=== PATIENT | female | born 1975 | race African-American/Black ===

== ENCOUNTER 2018-10-11 17:35 | Emergency (ER) | payer SELFPAY ==
--- NOTE | 2018-10-11 20:28 | ER Document Report ---
ED Medical Screen (RME) - General Chief Complaint: Blood Pressure Problem Stated Complaint: BLOOD PRESSURE CHECK Time Seen by Provider: 10/11/18 19:39 Mode of Arrival: Ambulatory Information source: Patient Notes: 3-year-old female presented to ED for complaint of elevated blood pressure with dizziness and headache. She states that she quit taking her blood pressure medicines because they made her blood pressure too low it went down to 119 over something she is not sure what but it made her lethargic so she has not taken them in a while. She is a patient at the [facility]. Her medicines are Lasartan and Chlorthalidone and/or in her purse. She will not take the medications. She states she needs an exam and testing done to make sure that it is really just because she needs to take her blood pressure medicine. She states she has been under stress and she knows this is more than just she needs to take her blood pressure medicine. Her blood pressure manually is 182/102 when I examined her. Negative assessment otherwise. She is insisting that she needs a real doctor not a nurse practitioner. I went and spoke with Dr. Islas and he went and examined the patient. She was not happy with him and states she needed a different real doctor. I have greeted and performed a rapid initial assessment of this patient. A comprehensive ED assessment and evaluation of the patient, analysis of test results and completion of medical decision making process will be conducted by an additional ED providers. TRAVEL OUTSIDE OF THE [place] IN LAST 30 DAYS: No - Related Data Allergies/Adverse Reactions: No Known Allergies Allergy (Unverified 10/11/18 17:41) Past Medical History - Past Medical History Cardiac Medical History: Reports: Hx Hypertension Renal/ Medical History: Denies: Hx Peritoneal Dialysis Past Surgical History: Reports: Hx Hysterectomy - Immunizations Hx Diphtheria, Pertussis, Tetanus Vaccination: No Physical Exam - Vital signs Vitals: Temp Pulse Resp BP Pulse Ox 98.8 F 100 14 167/104 H 99 10/11/18 17:57 10/11/18 17:57 10/11/18 17:57 10/11/18 17:57 10/11/18 17:57 Course - Vital Signs Vital signs: Temp Pulse Resp BP Pulse Ox 98.8 F 100 14 167/104 H 99 10/11/18 17:57 10/11/18 17:57 10/11/18 17:57 10/11/18 17:57 10/11/18 17:57 Doctor's Discharge - Discharge Referrals: LUCAS MERCHANT, [facility] [Primary Care Provider] - Follow up as needed
--- NOTE | 2018-10-11 20:51 | ER Document Report ---
Doctor's Note Notes: 10/11/18 20:49 I was asked to evaluate this patient in conjunction with nurse practitioner. Upon sitting down with the patient she deviated her days refused to look at me while speaking to her. I asked how I could help her today what brought her to the emergency room. She noted issues with her blood pressure and said she felt like she might not get up because her blood pressure had been made to low. Spoke to her about her desires including what she thought was wrong, what lab tests she would like around, what her concerns were and she noted she wanted a second opinion. I asked if I could help her and she noted that unless he is an individual, come up with my own second opinion I was of no use to her. She told me she did not wish to speak to me any longer. At this point I did offer this patient further evaluation including testing, blood work, medications all of which she declined stating she did not want my opinion.
--- NOTE | 2018-10-11 21:15 | ER Document Report ---
ED Blood Pressure Problem - General Chief Complaint: Blood Pressure Problem Stated Complaint: BLOOD PRESSURE CHECK Time Seen by Provider: 10/11/18 19:39 Mode of Arrival: Ambulatory Information source: Patient Notes: This is a 43-year-old female that presents to the emergency room with concerns about her blood pressure. Patient had a long history of blood pressure problems in the past and was on antihypertensives. She ultimately started adopting a vegan diet and her blood pressure normalized and she was taken off the medicines. She states she stopped the vegan diet this past spring and her blood pressure has gradually increased. She states that she was started on 2 medicines (losartan and chlorthalidone) 1 week ago and she feels increased weakness, generalized fatigue and "not good". Patient denies chest pain, abdominal pain. She denies shortness of breath. She does smoke half a pack per day. She does drink a lot of soda. TRAVEL OUTSIDE OF THE [place] IN LAST 30 DAYS: No - HPI Patient complains to provider of: High blood pressure Onset: Just prior to arrival Onset/Duration: Gradual Quality of pain: No pain Severity: None Pain Level: Denies Associated symptoms: denies: Chest pain, Lightheaded, Nausea, Visual changes Similar symptoms previously: Yes Recently seen / treated by doctor: Yes - Related Data Allergies/Adverse Reactions: No Known Allergies Allergy (Unverified 10/11/18 17:41) Past Medical History - General Information source: Patient - Social History Smoking Status: Current Every Day Smoker Cigarette use (# per day): Yes Chew tobacco use (# tins/day): No Frequency of alcohol use: None Drug Abuse: None Lives with: Family Family History: None Patient has suicidal ideation: No Patient has homicidal ideation: No - Past Medical History Cardiac Medical History: Reports: Hx Hypertension Renal/ Medical History: Denies: Hx Peritoneal Dialysis Past Surgical History: Reports: Hx Hysterectomy - Immunizations Hx Diphtheria, Pertussis, Tetanus Vaccination: No Review of Systems - Review of Systems Constitutional: denies: Chills, Fever EENT: No symptoms reported Cardiovascular: denies: Chest pain, Palpitations, Heart racing Respiratory: No symptoms reported Gastrointestinal: No symptoms reported Genitourinary: No symptoms reported Female Genitourinary: No symptoms reported Musculoskeletal: No symptoms reported Skin: No symptoms reported Hematologic/Lymphatic: No symptoms reported Neurological/Psychological: See HPI Physical Exam - Vital signs Vitals: Temp Pulse Resp BP Pulse Ox 98.8 F 100 14 167/104 H 99 10/11/18 17:57 10/11/18 17:57 10/11/18 17:57 10/11/18 17:57 10/11/18 17:57 Notes: Physical exam: GENERAL: Patient is alert and oriented x3, no acute distress. Her blood pressure is 167/104. HEAD: Atraumatic, normocephalic. EYES: Pupils equal round and reactive to light, extraocular movements intact, sclera anicteric, conjunctiva are normal. ENT: TMs normal, nares patent, oropharynx clear without exudates. Moist mucous membranes. NECK: Normal range of motion, supple without obvious mass or JVD. LUNGS: Breath sounds clear to auscultation bilaterally and equal. No wheezes rales or rhonchi. HEART: Regular rate and rhythm without murmurs, rubs or gallops. ABDOMEN: Soft, normoactive bowel sounds. No tenderness to palpation. No guarding, no rebound. No masses appreciated. EXTREMITIES: Normal range of motion, no pitting or edema. No clubbing or cyanosis. NEUROLOGICAL: Cranial nerves II through XII grossly intact. Normal speech, moving all extremities. PSYCH: Normal mood, normal affect. SKIN: Warm, Dry, normal turgor, no rashes or lesions noted. Course - Vital Signs Vital signs: Temp Pulse Resp BP Pulse Ox 97.9 F 97 17 179/81 H 99 10/11/18 21:35 10/11/18 21:35 10/11/18 21:35 10/11/18 21:35 10/11/18 21:35 Discharge - Discharge Clinical Impression: Hypertension Condition: Stable Disposition: HOME, SELF-CARE Additional Instructions: As we discussed, I would like you to take the losartan daily for your blood pressure. Hold off on the chlorthalidone now. I do want to get a repeat blood pressure check in the next 3-5 days with your primary care doctor. Ultimately you may need to add the second blood pressure medicine, but to start both at the same time may be to much for your system at this time (given that she is been off these medicines for a little while). I would try to avoid red meats and hand (meats with a lot of salt). Avoid salt and cut down on the smoking if you can. Return to the emergency room for chest pain, abdominal pain or any concerns or getting worse. Forms: Elevated Blood Pressure Referrals: LUCAS MERCHANT, JOHNATHON [NURSE PRACTITIONER] - Follow up as needed
[2018-10-11 21:36] VITALS: BP 179/81
== END 2018-10-11 21:33 | disposition home or self-care (01) ==
LOC: ER 17:35
DX: I10 Essential (primary) hypertension (principal); R42 Dizziness and giddiness; F17.210 Nicotine dependence, cigarettes, uncomplicated; Z90.710 Acquired absence of both cervix and uterus
CPT/HCPCS: 99283

== ENCOUNTER 2018-10-13 19:23 | Emergency (ER) | payer MEDICAID ==
[2018-10-13 19:40] VITALS: BP 127/95
== END 2018-10-13 20:00 | disposition left against medical advice (07) ==
LOC: ER 19:23
DX: Z53.21 Procedure and treatment not carried out due to patient leaving prior to being seen by health care provider (principal); F41.9 Anxiety disorder, unspecified

== ENCOUNTER 2018-10-14 12:12 | Emergency (ER) | payer MEDICAID, OTHER ==
--- NOTE | 2018-10-14 13:24 | EKG REPORT ---
SEVERITY:- ABNORMAL ECG - SINUS RHYTHM CONSIDER ANTERIOR INFARCT BORDERLINE T ABNORMALITIES, INFERIOR LEADS BORDERLINE PROLONGED QT INTERVAL : Confirmed by: Nigel Garcia MD 14-Oct-2018 13:23:39
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
[2018-10-14] MEDS ORDERED: LORAZEPAM INJ 2 MG/1 ML VIAL ONE (15:08)
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
[2018-10-14 16:27] LABS: ABSOLUTE EOSINOPHILS # (AUTO) 0.1 10^3/uL (0.0-0.6); ABSOLUTE LYMPHOCYTES (AUTO) 2.9 10^3/uL (0.5-4.7); ABSOLUTE MONOCYTES (AUTO) 0.4 10^3/uL (0.1-1.4); ABSOLUTE NEUT (AUTO) 2.6 10^3/uL (1.7-8.2); BASOPHILS % (AUTO) 0.8 % (0-2); EOSINOPHILS % (AUTO) 1.7 % (0-6); HEMATOCRIT 39.6 % (36.0-47.0); HEMOGLOBIN 13.4 g/dL (12.0-15.5); LYMPHOCYTES % (AUTO) 48.2 % (13-45); MEAN CORPUSCULAR HEMOGLOBIN 28.4 pg (27.0-33.4); MEAN CORPUSCULAR HGB CONC 33.9 g/dL (32.0-36.0); MEAN CORPUSCULAR VOLUME 84 fl (80-97); MONOCYTES % (AUTO) 6.2 % (3-13); PLATELET COUNT 220 10^3/uL (150-450); RED BLOOD COUNT 4.72 10^6/uL (3.72-5.28); RED CELL DISTRIBUTION WIDTH 13.8 % (11.5-14.0); SEGMENTED NEUTROPHILS % (AUTO) 43.1 % (42-78); TOTAL CELLS COUNTED % (AUTO) 100 %; WHITE BLOOD COUNT 5.9 10^3/uL (4.0-10.5)
[2018-10-14] MEDS ORDERED: LORAZEPAM INJ 2 MG/1 ML VIAL IM ONE (16:29)
[2018-10-14 16:46] LABS: ALANINE AMINOTRANSFERASE 10 U/L (9-52); ALKALINE PHOSPHATASE 48 U/L (38-126); ANION GAP 10 (5-19); ASPARTATE AMINO TRANSFERASE 17 U/L (14-36); BILIRUBIN,DIRECT 0.3 mg/dL (0.0-0.4); BILIRUBIN,TOTAL 0.4 mg/dL (0.2-1.3); BLOOD UREA NITROGEN 11 mg/dL (7-20); CALCIUM 9.6 mg/dL (8.4-10.2); CARBON DIOXIDE 30 mmol/L (22-30); CHLORIDE 101 mmol/L (98-107); GLUCOSE 97 mg/dL (75-110); POTASSIUM 3.2 mmol/L (3.6-5.0); SODIUM 141.3 mmol/L (137-145); TOTAL PROTEIN 6.9 g/dL (6.3-8.2)
[2018-10-14 16:49] LABS: ACETAMINOPHEN < 10 ug/mL (10-30); ALCOHOL < 10 mg/dL (NONE DETECTED); SALICYLATE < 1.0 mg/dL (2.0-20.0)
[2018-10-14 20:26] LABS: APPEARANCE,URINE CLOUDY; BILIRUBIN,URINE NEGATIVE (NEGATIVE); COLOR,URINE YELLOW; GLUCOSE, URINE NEGATIVE (NEGATIVE); KETONES,URINE NEGATIVE (NEGATIVE); LEUKOCYTE ESTERASE,URINE NEGATIVE (NEGATIVE); NITRITE,URINE NEGATIVE (NEGATIVE); PROTEIN,URINE NEGATIVE (NEGATIVE); URINE SPECIFIC GRAVITY 1.019
[2018-10-14 20:27] LABS: URINE AMPHETAMINES SCREEN NEGATIVE; URINE BARBITURATES SCREEN NEGATIVE; URINE BENZODIAZEPINES SCREEN NEGATIVE; URINE COCAINE SCREEN NEGATIVE; URINE MARIJUANA (THC) SCREEN UNCONFIRMED POSITIVE; URINE METHADONE SCREEN NEGATIVE; URINE PHENCYCLIDINE SCREEN NEGATIVE
[2018-10-15] MEDS ORDERED: LORAZEPAM INJ 2 MG/1 ML VIAL IM ONE (00:11)
[2018-10-15] MEDS: BUSPIRONE HCL 10 MG TABLET PO SCH ×2 (13:48→17:59)
[2018-10-15] MEDS: VENLAFAXINE HCL 37.5 MG CAP.SR.24H PO SCH (13:49)
[2018-10-15] MEDS: OLANZAPINE 5 MG TABLET PO SCH ×2 (13:49→17:59)
[2018-10-15] MEDS: BENZTROPINE MESYLATE 1 MG TABLET PO SCH (13:49)
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
[2018-10-15] MEDS ORDERED: POTASSIUM CHLORIDE 10 MEQ CAPSULE.ER PO ONE ×2 (15:38→17:56)
--- NOTE | 2018-10-15 15:41 | ER Document Report ---
ED Psych Disorder / Suicide - General Chief Complaint: Chest Pain Stated Complaint: POSSIBLE ANXIETY/CHEST PAIN Time Seen by Provider: 10/14/18 14:46 Mode of Arrival: Ambulatory TRAVEL OUTSIDE OF THE [place] IN LAST 30 DAYS: No - Related Data Allergies/Adverse Reactions: No Known Allergies Allergy (Unverified 10/11/18 17:41) Past Medical History - General Information source: Patient, Parent, Relative - Social History Smoking Status: Current Every Day Smoker Chew tobacco use (# tins/day): No Frequency of alcohol use: None Drug Abuse: Marijuana Family History: None Patient has suicidal ideation: No Patient has homicidal ideation: No - Past Medical History Cardiac Medical History: Reports: Hx Hypertension Renal/ Medical History: Denies: Hx Peritoneal Dialysis Psychiatric Medical History: Reports: Hx Depression - and anxiety Past Surgical History: Reports: Hx Hysterectomy - Immunizations Hx Diphtheria, Pertussis, Tetanus Vaccination: No Physical Exam - Vital signs Vitals: Temp Pulse Resp BP Pulse Ox 98.5 F 75 12 132/102 H 100 10/14/18 12:22 10/14/18 12:22 10/14/18 12:22 10/14/18 12:22 10/14/18 12:22 Course - Vital Signs Vital signs: Temp Pulse Resp BP Pulse Ox 98.3 F 80 20 118/76 99 10/15/18 06:09 10/15/18 06:09 10/15/18 06:09 10/15/18 06:09 10/15/18 06:09 - Laboratory Result Diagrams: 10/14/18 15:54 10/14/18 15:54 Laboratory results interpreted by me: 10/14/18 10/14/18 10/14/18 15:54 15:54 19:38 Lymphocytes % 48.2 H Potassium 3.2 L Est GFR (Non-Af Amer) 56 L Urine Blood SMALL H Urine Urobilinogen 2.0 H Salicylates < 1.0 L Acetaminophen < 10 L Discharge - Discharge Clinical Impression: Mental health disorder Condition: Stable Disposition: PSYCH HOSP/UNIT
--- NOTE | 2018-10-15 15:44 | ER Document Report ---
Doctor's Note Notes: 10/15/18 15:41 Rounds: Patient is here for feelings of depression and anxiety. Vital signs are all essentially normal. Lab studies were all essentially normal except for positive for marijuana. Patient appears to be medically stable for transfer or discharge. Chanel Parr MD 10/15/18 15:43
[2018-10-16 07:44] VITALS: BP 111/73
[2018-10-16] MEDS ORDERED: POTASSIUM CHLORIDE 10 MEQ CAPSULE.ER PO ONE (09:18)
--- NOTE | 2018-10-16 09:18 | ER Document Report ---
Doctor's Note Notes: 10/16/18 09:17 43-year-old female currently in IVC for major depressive disorder. Vital signs have been stable. Labs stable. Patient is up in his shower this morning. Her mood is improved as per the nurse report. She was started on meds yesterday. The plan is for psychiatric reassessment. 10/16/18 09:32 10/16/18 10:55
[2018-10-16] MEDS: OLANZAPINE 5 MG TABLET PO SCH ×2 (10:12→20:29)
[2018-10-16] MEDS: BUSPIRONE HCL 10 MG TABLET PO SCH ×2 (10:12→20:29)
[2018-10-16] MEDS: BENZTROPINE MESYLATE 1 MG TABLET PO SCH (10:12)
[2018-10-16] MEDS: VENLAFAXINE HCL 37.5 MG CAP.SR.24H PO SCH (10:14)
--- NOTE | 2018-10-16 14:46 | PSYCHOLOGICAL NOTE ---
Psych Note - Psych Note Psych Note: Reason for Consult: histrionics Patient is a 43-year-old female brought to the emergency room from the [place] clinic for complaints of chest pain/anxiety attacks that have been going on for some time now, she refused care at the [place] but was agreeable to coming to the emergency room for evaluation, this is her third visit in the past week for similar symptoms. Medication recommendations per [facility]'s contracted psychiatrist Zyprexa 5 mg twice daily Cogentin 1 mg daily BuSpar 10 mg twice daily Effexor 37.5 mg daily Diagnosis 296.30 (F33.9) major depressive disorder; recurrent unspecified [facility] (F41.9) unspecified anxiety disorder [facility] Impression\plan: Patient is recommended for continued IVC. Medications recommendations have been provided and was just started less than 24 hours previous. Patient has shown some improvement; however, there is some concern the patient continues to demonstrate some poor insight and judgment. patient will be re-evaluated. Dr. Nuñez was consulted and care management this patient ; attending physicians in agreement with recommendations and disposition.
--- NOTE | 2018-10-17 09:41 | ER Document Report ---
Doctor's Note Notes: Patient seen and evaluated by myself. Vitals stable. No issues overnight. Patient was initially seen for chest pain and anxiety attacks. She is on Zyprexa, Cogentin, BuSpar, Effexor. Patient was evaluated by behavioral health. Behavioral health feels comfortable with the patient being discharged home. Patient has no current suicidal ideations, homicidal ideations, delusions , hallucinations. Patient was instructed to take her medication as directed, to follow-up with her primary care physician and psychiatrist this week, and to return for any worsening symptoms. Patient is agreeable to plan of care. Discharge - Discharge Clinical Impression: Mental health disorder, Anxiety Depression Qualifiers: Depression Type: unspecified Qualified Code(s): F32.9 - Major depressive disorder, single episode, unspecified Condition: Stable Disposition: HOME, SELF-CARE Instructions: Anxiety ([facility]), Depression ([facility]) Referrals: MALENA BHANDARI MD [COMMUNITY BASED STAFF] - Follow up as needed
[2018-10-17] MEDS: BENZTROPINE MESYLATE 1 MG TABLET PO SCH (09:56)
[2018-10-17] MEDS: VENLAFAXINE HCL 37.5 MG CAP.SR.24H PO SCH (09:56)
[2018-10-17] MEDS: OLANZAPINE 5 MG TABLET PO SCH (09:56)
[2018-10-17] MEDS: BUSPIRONE HCL 10 MG TABLET PO SCH (09:56)
--- NOTE | 2018-10-17 10:43 | PSYCHOLOGICAL NOTE ---
Psych Note - Psych Note Date seen by psych provider: 10/17/18 Time seen by psych provider: 07:05 Psych Note: Reason for Consult: histrionics Patient is a 43-year-old female brought to the emergency room from the [place] clinic for complaints of chest pain/anxiety attacks that have been going on for some time now, [facility] but was agreeable to coming to the emergency room for evaluation, this is her third visit in the past week for similar symptoms. Check in conducted with patient: Patient is noted to sit up and smile to clinician upon entering room. Patient reports feeling much better and "I can't believe the difference the medicine makes...I had no idea." She disclosed that she will "definitely" continue taking the medication. She confirms her cousin just and that she was struggling with the grief. She states that she has a strong family support but acknowledges her relationship with her mother can be stressed at times. She reports she would [facility]. Medication recommendations per [facility]'s contracted psychiatrist Zyprexa 5 mg twice daily Cogentin 1 mg daily BuSpar 10 mg twice daily Effexor 37.5 mg daily Diagnosis 296.30 (F33.9) major depressive disorder; recurrent unspecified [facility] 300.00 (F41.9) unspecified anxiety disorder per [facility] the [facility] Impression\\plan: Patient is recommended for rescind of IVC and is cleared from acute psychiatric services. Patient no longer meets IVC criteria per [place] GS 122C. She demonstrates organized and linear thought processes and has not had any further behavioral outbursts. She reports the medication has helped and would like to continue taking the medication and follow up with the [facility]. Patient shows good insight and judgment. She is recommended to follow [facility] with the [facility]. Patient's family came and picked up the patient. Dr. Nuñez was consulted and care management this patient; attending physicians in agreement with recommendations and disposition.
== END 2018-10-17 09:59 | disposition home or self-care (01) ==
LOC: ER 12:12
DX: F33.9 Major depressive disorder, recurrent, unspecified (principal); F41.9 Anxiety disorder, unspecified; F99 Mental disorder, not otherwise specified; I10 Essential (primary) hypertension; R07.9 Chest pain, unspecified; F17.200 Nicotine dependence, unspecified, uncomplicated; Z90.710 Acquired absence of both cervix and uterus
CPT/HCPCS: 93005; 99285; 96372; 36415; 80307 ×4; 84703; 85025; 80053; 81001; 93010; J3490 ×3; J2060 ×2

== ENCOUNTER 2018-10-20 01:16 | Emergency (ER) | payer SELFPAY ==
[2018-10-20 01:23] VITALS: BP 158/99
== END 2018-10-20 02:01 | disposition left against medical advice (07) ==
LOC: ER 01:16
DX: Z53.21 Procedure and treatment not carried out due to patient leaving prior to being seen by health care provider (principal)

== ENCOUNTER 2018-10-24 20:05 | Emergency (ER) | payer OTHER ==
--- NOTE | 2018-10-24 20:58 | ER Document Report ---
ED Headache - General Chief Complaint: Headache Stated Complaint: LEFT FACE NUMBNESS Time Seen by Provider: 10/24/18 20:57 Mode of Arrival: Ambulatory Information source: Patient Notes: Patient is a 43-year-old female with a history of hypertension who presents with headache and also reports left-sided facial numbness as well as paresthesias of the extremities. Patient reports the symptoms occur when she has elevated blood pressure, currently they have all resolved. She denies other preceding symptoms, no recent fevers or chills, no head injuries, no vision changes. TRAVEL OUTSIDE OF THE [place] IN LAST 30 DAYS: No - HPI Patient complains to provider of: Headache Patient reports: Other - Elevated blood pressure Onset: Just prior to arrival Onset was: Abrupt Timing: Gone now Quality of pain: Pressure, Throbbing Severity: Mild Pain Level: Denies Associated symptoms: None Similar symptoms previously: No Recently seen / treated by doctor: No - Related Data Allergies/Adverse Reactions: No Known Allergies Allergy (Unverified 10/11/18 17:41) Past Medical History - General Information source: Patient - Social History Smoking Status: Current Every Day Smoker Cigarette use (# per day): Yes Chew tobacco use (# tins/day): No Smoking Education Provided: No Frequency of alcohol use: None Drug Abuse: None Lives with: Family Family History: None Patient has suicidal ideation: No Patient has homicidal ideation: No - Past Medical History Cardiac Medical History: Reports: Hx Hypertension Pulmonary Medical History: Reports: None EENT Medical History: Reports: None Neurological Medical History: Reports: None Endocrine Medical History: Reports: None Renal/ Medical History: Reports: None. Denies: Hx Peritoneal Dialysis Malignancy Medical History: Reports: None GI Medical History: Reports: None Musculoskeletal Medical History: Reports None Skin Medical History: Reports None Psychiatric Medical History: Reports: Hx Depression - and anxiety Traumatic Medical History: Reports: None Infectious Medical History: Reports: None Surgical Hx: Negative Past Surgical History: Reports: Hx Hysterectomy - Immunizations Immunizations up to date: Yes Hx Diphtheria, Pertussis, Tetanus Vaccination: No History of Influenza Vaccine for 08/2017 - 01/2018 Season: Unknown Review of Systems - Review of Systems -: Yes ROS unobtainable due to patient's medical condition Constitutional: No symptoms reported EENT: See HPI, Other - Left-sided facial numbness Cardiovascular: No symptoms reported Respiratory: No symptoms reported Gastrointestinal: No symptoms reported Genitourinary: No symptoms reported Female Genitourinary: No symptoms reported Musculoskeletal: No symptoms reported Skin: No symptoms reported Hematologic/Lymphatic: No symptoms reported Neurological/Psychological: No symptoms reported -: Yes All other systems reviewed and negative Physical Exam - Vital signs Vitals: Temp Pulse Resp BP Pulse Ox 98.9 F 82 16 202/118 H 100 10/24/18 20:24 10/24/18 20:24 10/24/18 20:24 10/24/18 20:24 10/24/18 20:24 Interpretation: Normal - General General appearance: Appears well, Alert In distress: None - HEENT Head: Normocephalic, Atraumatic Eyes: Normal Pupils: PERRL - Respiratory Respiratory status: No respiratory distress Chest status: Nontender Breath sounds: Normal Chest palpation: Normal - Cardiovascular Rhythm: Regular Heart sounds: Normal auscultation Murmur: No - Abdominal Inspection: Normal Distension: No distension Bowel sounds: Normal Tenderness: Nontender Organomegaly: No organomegaly - Rectal Tenderness: No - Deferred - Genitourinary Notes: Deferred - Back Back: Normal, Nontender - Extremities General upper extremity: Normal inspection, Nontender, Normal color, Normal ROM , Normal temperature General lower extremity: Normal inspection, Nontender, Normal color, Normal ROM , Normal temperature, Normal weight bearing. No: Gisselle's sign - Neurological Neuro grossly intact: Yes Cognition: Normal Orientation: AAOx4 Lizeth Coma Scale Eye Opening: Spontaneous Lizeth Coma Scale Verbal: Oriented Lizeth Coma Scale Motor: Obeys Commands [place] Coma Scale Total: 15 Speech: Normal Motor strength normal: LUE, RUE, LLE, RLE Sensory: Normal - Psychological Associated symptoms: Normal affect, Normal mood - Skin Skin Temperature: Warm Skin Moisture: Dry Skin Color: Normal Course - Re-evaluation Re-evalutation: 10/24/18 22:12 Patient is clearly upset, stating this is a "bad hospital" and that she does not want to be here. She says repeatedly that she will [facility]." Her exam is completely nonfocal and her symptoms have resolved as her blood pressure has improved. Patient will be discharged home with return precautions and follow-up as she does not wish to have further workup completed. She was informed a normal workup for these symptoms included blood work as well as a CT scan of the head, both of which she has declined. Patient reports that she is "going to contact the state and file a complaint against this hospital for violating my patient rights." When attempting to ascertain the basis of her argumentative attitude, the patient requested to be discharged. She will be discharged with return precautions and follow-up, she agrees and understands the plan. - Vital Signs Vital signs: Temp Pulse Resp BP Pulse Ox 98.9 F 82 16 202/118 H 100 10/24/18 20:24 10/24/18 20:24 10/24/18 20:24 10/24/18 20:24 10/24/18 20:24 Discharge - Discharge Clinical Impression: Headache, Uncontrolled hypertension Condition: Good Disposition: HOME, SELF-CARE Instructions: Headache ([facility]), High Blood Pressure ([facility]) Additional Instructions: Please follow-up with the [facility] as scheduled. Return to the emergency department immediately if you experience vision changes, weakness of the extremities, difficulty walking, or any other concerning symptom. Print Language: Amharic
[2018-10-24 23:00] VITALS: BP 156/85
== END 2018-10-24 23:00 | disposition home or self-care (01) ==
LOC: ER 20:05
DX: R51 Headache (principal); I10 Essential (primary) hypertension; R20.0 Anesthesia of skin; F17.210 Nicotine dependence, cigarettes, uncomplicated
CPT/HCPCS: 99284

== ENCOUNTER 2018-11-04 23:13 | Emergency (ER) | payer OTHER ==
--- NOTE | 2018-11-05 00:18 | ER Document Report ---
ED Medical Screen (RME) - General Chief Complaint: Psych Problem Stated Complaint: MENTAL HEALTH CONCERNS Time Seen by Provider: 11/05/18 00:16 TRAVEL OUTSIDE OF THE [place] IN LAST 30 DAYS: No - HPI Notes: 11/05/18 00:16 I pulled the patient back to triage her. When I sat her down in the triage room, patient states that she 'wants to see a doctor.' I did reveal to her that I am a physician billing assistant and a provider in the emergency department if she would not mind talking to me so we can get some things started for her if need be. Patient declined and said that she wants to see a doctor. At that point I showed her the door back to the waiting room and expressed that we will get her room when it is her turn and when one is available. No other exam was able to be performed, but pt did not appear in any acute distress and is moving comfortably. - Related Data Allergies/Adverse Reactions: No Known Allergies Allergy (Unverified 10/11/18 17:41) Past Medical History - Past Medical History Cardiac Medical History: Reports: Hx Hypertension Renal/ Medical History: Denies: Hx Peritoneal Dialysis Psychiatric Medical History: Reports: Hx Depression - and anxiety Past Surgical History: Reports: Hx Hysterectomy - Immunizations Immunizations up to date: Yes Hx Diphtheria, Pertussis, Tetanus Vaccination: No History of Influenza Vaccine for 08/2017 - 01/2018 Season: Unknown Physical Exam - Vital signs Vitals: Temp Pulse Resp BP Pulse Ox 99.3 F 98 15 170/109 H 97 11/04/18 23:26 11/04/18 23:26 11/04/18 23:26 11/04/18 23:26 11/04/18 23:26 Course - Vital Signs Vital signs: Temp Pulse Resp BP Pulse Ox 99.3 F 98 15 170/109 H 97 11/04/18 23:26 11/04/18 23:26 11/04/18 23:26 11/04/18 23:26 11/04/18 23:26
[2018-11-05 01:37] LABS: ABSOLUTE EOSINOPHILS # (AUTO) 0.1 10^3/uL (0.0-0.6); ABSOLUTE LYMPHOCYTES (AUTO) 2.9 10^3/uL (0.5-4.7); ABSOLUTE MONOCYTES (AUTO) 0.4 10^3/uL (0.1-1.4); ABSOLUTE NEUT (AUTO) 4.1 10^3/uL (1.7-8.2); BASOPHILS % (AUTO) 0.3 % (0-2); EOSINOPHILS % (AUTO) 1.6 % (0-6); HEMATOCRIT 39.1 % (36.0-47.0); HEMOGLOBIN 13.2 g/dL (12.0-15.5); LYMPHOCYTES % (AUTO) 38.1 % (13-45); MEAN CORPUSCULAR HEMOGLOBIN 28.5 pg (27.0-33.4); MEAN CORPUSCULAR HGB CONC 33.7 g/dL (32.0-36.0); MEAN CORPUSCULAR VOLUME 85 fl (80-97); MONOCYTES % (AUTO) 5.1 % (3-13); PLATELET COUNT 256 10^3/uL (150-450); RED BLOOD COUNT 4.62 10^6/uL (3.72-5.28); RED CELL DISTRIBUTION WIDTH 14.4 % (11.5-14.0); SEGMENTED NEUTROPHILS % (AUTO) 54.9 % (42-78); TOTAL CELLS COUNTED % (AUTO) 100 %; WHITE BLOOD COUNT 7.5 10^3/uL (4.0-10.5)
[2018-11-05 01:46] LABS: APPEARANCE,URINE SLIGHTLY-CLOUDY; BILIRUBIN,URINE NEGATIVE (NEGATIVE); COLOR,URINE YELLOW; GLUCOSE, URINE NEGATIVE (NEGATIVE); KETONES,URINE NEGATIVE (NEGATIVE); LEUKOCYTE ESTERASE,URINE NEGATIVE (NEGATIVE); NITRITE,URINE NEGATIVE (NEGATIVE); PROTEIN,URINE NEGATIVE (NEGATIVE); URINE SPECIFIC GRAVITY 1.024
[2018-11-05 01:53] LABS: ALANINE AMINOTRANSFERASE 15 U/L (9-52); ALBUMIN 4.1 g/dL (3.5-5.0); ALKALINE PHOSPHATASE 58 U/L (38-126); ANION GAP 7 (5-19); ASPARTATE AMINO TRANSFERASE 17 U/L (14-36); BILIRUBIN,DIRECT 0.2 mg/dL (0.0-0.4); BILIRUBIN,TOTAL 0.3 mg/dL (0.2-1.3); BLOOD UREA NITROGEN 13 mg/dL (7-20); CALCIUM 9.9 mg/dL (8.4-10.2); CARBON DIOXIDE 28 mmol/L (22-30); CHLORIDE 105 mmol/L (98-107); GLUCOSE 92 mg/dL (75-110); POTASSIUM 4.5 mmol/L (3.6-5.0); SODIUM 139.9 mmol/L (137-145)
[2018-11-05 01:58] LABS: ACETAMINOPHEN < 10 ug/mL (10-30); ALCOHOL < 10 mg/dL (NONE DETECTED); SALICYLATE < 1.0 mg/dL (2.0-20.0)
[2018-11-05 02:02] LABS: URINE AMPHETAMINES SCREEN NEGATIVE; URINE BARBITURATES SCREEN NEGATIVE; URINE BENZODIAZEPINES SCREEN NEGATIVE; URINE COCAINE SCREEN NEGATIVE; URINE MARIJUANA (THC) SCREEN UNCONFIRMED POSITIVE; URINE METHADONE SCREEN NEGATIVE; URINE PHENCYCLIDINE SCREEN NEGATIVE
--- NOTE | 2018-11-05 02:05 | ER Document Report ---
Addendum entered and electronically signed by SIERRA CHRISTENSEN DO 11/05/18 09:50: Discharge - Discharge Clinical Impression: Marijuana abuse Condition: Stable Disposition: HOME, SELF-CARE Additional Instructions: You have been evaluated both medical and behavioral health teams have been deemed appropriate for discharge. You are encouraged to follow-up with either the local [place] or [facility] for continued assistance on substance abuse treatment. AT ANY TIME, IF YOUR SYMPTOMS CHANGE SIGNIFICANTLY OR WORSEN OR YOU DEVELOP NEW SYMPTOMS, RETURN TO THE EMERGENCY DEPARTMENT IMMEDIATELY FOR RE-EVALUATION. Referrals: [facility] [Provider Group] - Follow up as needed [facility] [Outside] - Follow up as needed Addendum entered and electronically signed by LISBET RICHARDS LCSWA 11/05/18 08:41: Discharge - Discharge Clinical Impression: Marijuana abuse Condition: Stable Disposition: HOME, SELF-CARE Additional Instructions: You have been evaluated both medical and behavioral health teams have been deemed appropriate for discharge. You are encouraged to follow-up with either the local [place] or [facility] for continued assistance on substance abuse treatment. AT ANY TIME, IF YOUR SYMPTOMS CHANGE SIGNIFICANTLY OR WORSEN OR YOU DEVELOP NEW SYMPTOMS, RETURN TO THE EMERGENCY DEPARTMENT IMMEDIATELY FOR RE-EVALUATION. Referrals: [facility] [Provider Group] - Follow up as needed [facility] [Outside] - Follow up as needed Original Note: ED General - General Chief Complaint: Psych Problem Stated Complaint: MENTAL HEALTH CONCERNS Time Seen by Provider: 11/05/18 00:16 Notes: Patient is a 43-year-old female presents with complaint of being addicted to marijuana. She says this been a problem for a long time. She says that she feels that she really needs help with this. She says that she does have anxiety that she does treat with marijuana. She says that she was recently here and placed on medications which first seem to be helping but then start to make her feel very unwell and therefore she [facility] else. She is unsure what the medication is that she was switched to. She says is not working and she continues to smoke very large amounts of marijuana and says that she wants some help for this whether it be referral for counseling or other treatments that may help. She denies any suicidal ideations. No other complaints at this time. TRAVEL OUTSIDE OF THE [place] IN LAST 30 DAYS: No - Related Data Allergies/Adverse Reactions: No Known Allergies Allergy (Unverified 10/11/18 17:41) Past Medical History - Social History Smoking Status: Never Smoker Frequency of alcohol use: None Drug Abuse: Marijuana Family History: None - Past Medical History Cardiac Medical History: Reports: Hx Hypertension Renal/ Medical History: Denies: Hx Peritoneal Dialysis Psychiatric Medical History: Reports: Hx Depression - and anxiety Past Surgical History: Reports: Hx Hysterectomy - Immunizations Immunizations up to date: Yes Hx Diphtheria, Pertussis, Tetanus Vaccination: No Review of Systems - Review of Systems Notes: My Normal Review Basic REVIEW OF SYSTEMS: CONSTITUTIONAL : Denies fever, chills, or sweats. Denies recent illness. EENT: Denies eye, ear, throat, or mouth pain or symptoms. Denies nasal or sinus congestion. RESPIRATORY: Denies cough, cold, or chest congestion. Denies shortness of breath, difficulty breathing, or wheezing. GASTROINTESTINAL: Denies abdominal pain. Denies nausea, vomiting, or diarrhea. MUSCULOSKELETAL: Denies neck or back pain or joint pain or swelling. SKIN: Denies rash or skin lesions. NEUROLOGICAL: Denies altered mental status or loss of consciousness. Denies headache. Denies weakness or paralysis or loss of use of either side. Denies problems with gait or speech. Denies sensory or motor loss. PSYCHIATRIC: Anxiety ALL OTHER SYSTEMS REVIEWED AND NEGATIVE. Physical Exam - Vital signs Vitals: Temp Pulse Resp BP Pulse Ox 99.3 F 98 15 170/109 H 97 11/04/18 23:26 11/04/18 23:26 11/04/18 23:26 11/04/18 23:26 11/04/18 23:26 - Notes Notes: General Appearance: Well nourished, alert, cooperative, no acute distress, no obvious discomfort. Well-appearing. Vitals: reviewed, See vital signs table. Head: no swelling or tenderness to the head Eyes: PERRL, EOMI, Conjuctiva clear Mouth: No decreasd moisture Throat: No tonsillar inflammation, No airway obstruction, No lymphadenopathy Neck: Supple, no neck tenderness, No thyromegaly Lungs: No wheezing, No rales, No rhonci, No accessory muscle use, good air exchange bilaterally. Heart: Normal rate, Regular rythm, No murmur, no rub Skin: warm, dry, appropriate color, no rash Neuro: speech clear, oriented x 3, normal affect, responds appropriately to questions. Course - Re-evaluation Re-evalutation: 11/05/18 05:58 Patient's is adamant about getting help with marijuana dependence. I did explain to the patient length that marijuana is not truly a physical dependence however it can be emotional and habitual dependence. I informed her that usually marijuana use frequently is attributed to people treating underlying condition such as anxiety or depression and that it can also does have a hip ritual dependence and lifestyle dependence as well. All, she shows understanding of this. I informed her that there is not a true medication that would treat addiction such as we have with opiates. Informed her it is more of a counseling or psychological type treatment. Patient says she would want to speak with mental health team. She is not on any type of involuntary commitment. She can come and go as she pleases. She is not suicidal homicidal. She is medically stable for mental health evaluation. Dictation of this chart was performed using voice recognition software; therefore, there may be some unintended grammatical errors. - Vital Signs Vital signs: Temp Pulse Resp BP Pulse Ox 99.3 F 98 15 170/109 H 97 11/04/18 23:26 11/04/18 23:26 11/04/18 23:26 11/04/18 23:26 11/04/18 23:26 - Laboratory Result Diagrams: 11/05/18 01:25 11/05/18 01:25 Laboratory results interpreted by me: 11/05/18 11/05/18 11/05/18 01:25 01:25 01:25 RDW 14.4 H Urine Urobilinogen 2.0 H Salicylates < 1.0 L Acetaminophen < 10 L - EKG Interpretation by Me Additional EKG results interpreted by me: 11/05/18 02:04 11/05/18 03:38 Discharge - Discharge Clinical Impression: Marijuana abuse
--- NOTE | 2018-11-05 06:38 | EKG REPORT ---
SEVERITY:- NORMAL ECG - SINUS RHYTHM : Confirmed by: Nigel Garcia MD 05-Nov-2018 06:38:18
--- NOTE | 2018-11-05 08:39 | PSYCHOLOGICAL NOTE ---
Psych Note - Psych Note Date seen by psych provider: 11/05/18 Time seen by psych provider: 07:40 Psych Note: Reason for Consult: substance abuse Patient is a 43-year-old female presents with complaint of being addicted to marijuana. Patient disclosed that she wants assistance in getting off of marijuana. She reports that upon discharge from [facility] the medications were working very well however [facility] because she was still using marijuana. She reports that even with those medication changes she is still using marijuana. Clinician provided psychoeducation on medications, mental health and substance abuse. Patient confirms she has been taking the medications as the [facility] prescribed. She reports she understands she needs therapy to assist with the emotional addiction to marijuana. Patient reports she is not interested in going to the [facility] for referral however states she would like assistance for mobile crisis. Chart review conducted Patient was seen by this clinician and department from 10/14/2018 to 10/17/2018. Patient was hypomanic and unable to control her emotions during that visit and was successfully stabilized. Patient is alert and orientated to person, place, time and circumstance. Mood is euthymic with congruent affect. Patient denies suicidal and homicidal ideation. Delusions are absent behaviors congruent with an intact reality based presentation i.e. organized and linear thought process. Eye contact is poor as patient resists making eye contact. Conversational speech is low however easily understood. Intellectual abilities appear to be within the average range. Attention and concentration are fair. Insight, judgment, impulse control are fair. no medication recommendations at this time Diagnosis 296.30 (F33.9) major depressive disorder; recurrent unspecified [facility] 300[facility]00 (F41.9) unspecified anxiety disorder per [facility] by the [facility] 304.30 (F12.20) cannabis use disorder; severe per history Impression/plan: Patient is cleared from acute psychiatric services. Patient is requesting assistance in long-term cannabis use dependency. She disclosed that she used cannabis for her mental health symptoms. Clinician explained to the patient for substance abuse treatment to be covered by the [facility] she [facility] the local [facility] to [facility] a [facility]. Patient is not interested in receiving a referral from the [facility]. It was recommended that patient may benefit from getting into contact with mobile crisis for further assistance in substance abuse treatment. Patient reports that she feels comfortable with mobile crisis and agrees to do that. Patient is denying any thoughts of wanting to harm herself or others. She reports she is been taking medication as prescribed (clinician notes that the [facility] the [facility]'s [facility] since her last visit from 10/14/2018 to 10/17/2018). At this time the patient is recommended to follow-up with outpatient mental health and substance abuse treatment. Dr. Nuñez was consulted and the care management of this patient; attending physicians in agreement with recommendations and disposition.
--- NOTE | 2018-11-05 09:52 | ER Document Report ---
Doctor's Note Notes: 11/05/18 09:51 Patient is rechecked, feeling well this morning, agreeable to discharge plan where she will meet with mobile crisis and discussed with them options for treatment for marijuana addiction. Patient is not suicidal or homicidal, does not meet IVC criteria. Patient will be discharged to home.
[2018-11-05 10:08] VITALS: BP 137/92
== END 2018-11-05 10:08 | disposition home or self-care (01) ==
LOC: ER 23:13
DX: F12.10 Cannabis abuse, uncomplicated (principal); I10 Essential (primary) hypertension
CPT/HCPCS: 36415; 80053; 80307; 81001; 84703; 85025; 93005; 93010; 99284

== ENCOUNTER 2018-11-07 01:30 | Emergency (ER) | payer SELFPAY ==
--- NOTE | 2018-11-07 02:39 | ER Document Report ---
ED General - General TRAVEL OUTSIDE OF THE U.S. IN LAST 30 DAYS: No <ARIAN CEE - Last Filed: 11/07/18 06:26> <LISBET RICHARDS - Last Filed: 11/07/18 10:06> <RUBY LEVI - Last Filed: 11/07/18 10:33> - General Chief Complaint: Psych Problem Stated Complaint: ANXIETY Time Seen by Provider: 11/07/18 01:58 Notes: Patient is a 43-year-old female presents to the emergency department chief complaint of anxiety and depression. Patient states she has been since of history of anxiety depression and is being seen by a primary care provider at the [facility]. Patient states he continues to change her medications consistently most recently this Wednesday. Patient states she is unsure of exactly what medications to take. Patient continues to state that she is fearful. When I asked what she is fearful of she just says "I am just scared that I am not right." When asked if she has any complaints as far as chest pain, shortness of breath, headache, nausea, vomiting she states "my whole body hurts." Patient has a very flat affect and will not make eye contact during HPI. Patient is alert and oriented x4. I then asked the patient if she wants to speak with a police officer booking for her feeling unsafe or if she wants to speak to our mental health evaluators as far as her anxiety and depression are concerned. Patient states she does not need to speak to police but she does wish to stay in the emergency room overnight to speak with our mental health evaluators in the morning. Patient then asks "what are you going to do for me as far as my body hurting?" I discussed we will do routine labs at this time. Patient is denying SI, HI, auditory or visual hallucinations Past medical history: Anxiety, depression, hypertension Medications: HCTZ, benztropine Allergies: None (ARIAN CEE) - Related Data Allergies/Adverse Reactions: No Known Allergies Allergy (Unverified 10/11/18 17:41) Past Medical History - General Information source: Patient - Social History Smoking Status: Unknown if Ever Smoked Drug Abuse: Marijuana Family History: None Patient has suicidal ideation: No Patient has homicidal ideation: No - Past Medical History Cardiac Medical History: Reports: Hx Hypertension Renal/ Medical History: Denies: Hx Peritoneal Dialysis Psychiatric Medical History: Reports: Hx Depression - and anxiety Past Surgical History: Reports: Hx Hysterectomy, Hx Tubal Ligation - Immunizations Immunizations up to date: Yes Hx Diphtheria, Pertussis, Tetanus Vaccination: No <ARIAN CEE - Last Filed: 11/07/18 06:26> Review of Systems - Review of Systems Constitutional: No symptoms reported EENT: No symptoms reported Cardiovascular: No symptoms reported Respiratory: No symptoms reported Gastrointestinal: No symptoms reported Genitourinary: No symptoms reported Female Genitourinary: No symptoms reported Musculoskeletal: No symptoms reported Skin: No symptoms reported Hematologic/Lymphatic: No symptoms reported Neurological/Psychological: See HPI <ARIAN CEE - Last Filed: 11/07/18 06:26> Physical Exam <ARIAN CEE - Last Filed: 11/07/18 06:26> - Vital signs Vitals: Temp Pulse Resp BP Pulse Ox 98.8 F 80 16 144/99 H 98 11/07/18 01:43 11/07/18 01:43 11/07/18 01:43 11/07/18 01:43 11/07/18 01:43 - Notes Notes: GENERAL: Alert, No acute distress. HEAD: Normocephalic, atraumatic. EYES: Pupils equal, round, and reactive to light. Extraocular movements intact. ENT: Oral mucosa moist, tongue midline. NECK: Full range of motion. Supple. Trachea midline. LUNGS: Clear to auscultation bilaterally, no wheezes, rales, or rhonchi. No respiratory distress. HEART: Regular rate and rhythm. No murmur ABDOMEN: Soft, non-tender. Non-distended. Bowel sounds present in all 4 quadrants. EXTREMITIES: Moves all 4 extremities spontaneously. No edema, normal radial and dorsalis pedis pulses bilaterally. No cyanosis. BACK: no cervical, thoracic, lumbar midline tenderness. No saddle anesthesia, normal distal neurovascular exam. NEUROLOGICAL: Alert and oriented x3. Normal speech. cranial nerves II through XII grossly intact PSYCH: flat affect, depressed mood. SKIN: Warm, dry, normal turgor. No rashes or lesions noted. (ARIAN CEE) Course - Laboratory Result Diagrams: 11/07/18 02:35 11/07/18 02:35 <ARIAN CEE - Last Filed: 11/07/18 06:26> - Laboratory Result Diagrams: 11/07/18 02:35 11/07/18 02:35 <LISBET RICHARDS - Last Filed: 11/07/18 10:06> - Laboratory Result Diagrams: 11/07/18 02:35 11/07/18 02:35 <RUBY LEVI - Last Filed: 11/07/18 10:33> - Re-evaluation Re-evalutation: Glucose revealed at 71, patient was given food in the emergency room. 11/07/18 03:34 In reviewing patient's past visits to the emergency room it is seen that she has been here a total of 7 times since 10/11/2018. Her last visit was on 11/04/2018 and she was seen here for mental health issues. She was told to follow-up outpatient and was discharged from the emergency room. When discussing this with patient and if she followed up with mental health outpatient here at the [facility] she closes her eyes and will not talk to me. Patient appears to be sleeping at this time in no obvious distress. Patient's labs are unremarkable at this time, she is currently cleared for mental health evaluation. 11/07/18 03:39 Patient continues to deny HI, SI, auditory or visual hallucinations. She is not under IVC paperwork she is just waiting in the emergency room for a psych mariaelena luation. 11/07/18 07:00 Pt. care and report given to Iron HANNA awaiting psych eval. Pt. continued to be stable and has been sleeping all night with no issues. (ARIAN CEE) - Vital Signs Vital signs: Temp Pulse Resp BP Pulse Ox 98.3 F 68 14 113/73 100 11/07/18 06:17 11/07/18 06:17 11/07/18 06:17 11/07/18 06:17 11/07/18 06:17 - Laboratory Laboratory results interpreted by me: 11/07/18 11/07/18 11/07/18 02:35 02:35 02:57 RDW 14.3 H Lymphocytes % 47.8 H Glucose 71 L Urine Blood SMALL H Salicylates < 1.0 L Acetaminophen < 10 L Discharge <ARIAN CEE - Last Filed: 11/07/18 06:26> <LISBTE RICHARDS - Last Filed: 11/07/18 10:06> <RUBY LEVI - Last Filed: 11/07/18 10:33> - Discharge Clinical Impression: Anxiety Disposition: HOME, SELF-CARE Additional Instructions: You have been evaluated both medical and behavioral health teams have been deemed appropriate for discharge. You have requested medication changes. It is recommended you follow-up with your outpatient mental health provider on 11/09/2018, your previously scheduled appointment. to discuss changing your medications. Previous medication recommendations included Zyprexa 5 mg twice daily Cogentin 1 mg daily BuSpar 10 mg twice daily Effexor 37.5 mg daily Anxiety The physician feels that some of your health problems are being caused by anxiety. Anxiety affects your health in many ways. Anxiety alone can cause palpitations, sweats, chest pains, abdominal pains, shortness of breath, and headaches. It contributes to ulcer disease, high blood pressure, irritable bowel syndrome, and has been shown to cause flare-ups of many other diseases. Anxiety is not a simple disorder to treat. If the anxiety is due to recent life stresses, you may simply need time to "work through" the changes. If the anxiety is due to an underlying unhappiness with yourself or due to psychiatric disturbance, professional help will be needed. Your physician can refer you for further help if needed. Anti-anxiety medication is occasionally given if the stress is acute or if you are having trouble sleeping. Chronic or frequent use of these medications is not a good idea because the body becomes reliant on it, preventing you from dealing with life's normal stresses. AT ANY TIME, IF YOUR SYMPTOMS CHANGE SIGNIFICANTLY OR WORSEN OR YOU DEVELOP NEW SYMPTOMS, RETURN TO THE EMERGENCY DEPARTMENT IMMEDIATELY FOR RE-EVALUATION. Referrals: [facility] [Provider Group] - 11/09/18
[2018-11-07 02:50] LABS: ABSOLUTE BASOPHILS # (AUTO) 0.1 10^3/uL (0.0-0.2); ABSOLUTE EOSINOPHILS # (AUTO) 0.2 10^3/uL (0.0-0.6); ABSOLUTE MONOCYTES (AUTO) 0.4 10^3/uL (0.1-1.4); ABSOLUTE NEUT (AUTO) 2.6 10^3/uL (1.7-8.2); EOSINOPHILS % (AUTO) 2.6 % (0-6); HEMATOCRIT 37.7 % (36.0-47.0); HEMOGLOBIN 12.6 g/dL (12.0-15.5); LYMPHOCYTES % (AUTO) 47.8 % (13-45); MEAN CORPUSCULAR HEMOGLOBIN 28.5 pg (27.0-33.4); MEAN CORPUSCULAR HGB CONC 33.3 g/dL (32.0-36.0); MEAN CORPUSCULAR VOLUME 86 fl (80-97); MONOCYTES % (AUTO) 6.6 % (3-13); PLATELET COUNT 250 10^3/uL (150-450); RED CELL DISTRIBUTION WIDTH 14.3 % (11.5-14.0); TOTAL CELLS COUNTED % (AUTO) 100 %; WHITE BLOOD COUNT 6.2 10^3/uL (4.0-10.5)
[2018-11-07 03:11] LABS: ALANINE AMINOTRANSFERASE 12 U/L (9-52); ALBUMIN 3.8 g/dL (3.5-5.0); ALKALINE PHOSPHATASE 60 U/L (38-126); ANION GAP 8 (5-19); ASPARTATE AMINO TRANSFERASE 15 U/L (14-36); BILIRUBIN,DIRECT 0.2 mg/dL (0.0-0.4); BILIRUBIN,TOTAL 0.2 mg/dL (0.2-1.3); BLOOD UREA NITROGEN 15 mg/dL (7-20); CALCIUM 9.6 mg/dL (8.4-10.2); CARBON DIOXIDE 26 mmol/L (22-30); CHLORIDE 107 mmol/L (98-107); GLUCOSE 71 mg/dL (75-110); POTASSIUM 4.1 mmol/L (3.6-5.0); SODIUM 140.8 mmol/L (137-145); TOTAL PROTEIN 6.6 g/dL (6.3-8.2)
[2018-11-07 03:12] LABS: ACETAMINOPHEN < 10 ug/mL (10-30); ALCOHOL < 10 mg/dL (NONE DETECTED); SALICYLATE < 1.0 mg/dL (2.0-20.0)
[2018-11-07 03:22] LABS: URINE AMPHETAMINES SCREEN NEGATIVE; URINE BARBITURATES SCREEN NEGATIVE; URINE BENZODIAZEPINES SCREEN NEGATIVE; URINE COCAINE SCREEN NEGATIVE; URINE MARIJUANA (THC) SCREEN UNCONFIRMED POSITIVE; URINE METHADONE SCREEN NEGATIVE; URINE PHENCYCLIDINE SCREEN NEGATIVE
[2018-11-07 03:30] LABS: APPEARANCE,URINE CLOUDY; BILIRUBIN,URINE NEGATIVE (NEGATIVE); COLOR,URINE YELLOW; GLUCOSE, URINE NEGATIVE (NEGATIVE); KETONES,URINE NEGATIVE (NEGATIVE); LEUKOCYTE ESTERASE,URINE NEGATIVE (NEGATIVE); NITRITE,URINE NEGATIVE (NEGATIVE); PROTEIN,URINE NEGATIVE (NEGATIVE); URINE SPECIFIC GRAVITY 1.024; UROBILINOGEN,URINE NEGATIVE mg/dL (<2.0)
--- NOTE | 2018-11-07 06:11 | EKG REPORT ---
SEVERITY:- NORMAL ECG - SINUS RHYTHM : Confirmed by: Nigel Garcia MD 07-Nov-2018 06:10:51
[2018-11-07] MEDS ORDERED: OLANZAPINE 5 MG TABLET PO ONE (10:32)
--- NOTE | 2018-11-07 10:41 | ER Document Report ---
Doctor's Note Notes: 11/07/18 10:39 Rounds: Chart reviewed and patient interviewed. Patient being evaluated for anxiety. Denies suicidal ideation. Vital signs have all been normal. Labs were positive for marijuana but otherwise normal. Patient appears to be medically stable for transfer or discharge. Chanel Parr MD
[2018-11-07 10:45] VITALS: BP 118/80
== END 2018-11-07 11:00 | disposition home or self-care (01) ==
LOC: ER 01:30
DX: F41.9 Anxiety disorder, unspecified (principal); F32.9 Major depressive disorder, single episode, unspecified; F12.10 Cannabis abuse, uncomplicated; I10 Essential (primary) hypertension
CPT/HCPCS: 36415; 80053; 80307; 81001; 82962; 84703; 85025; 93005; 93010; 99284

== ENCOUNTER 2018-11-10 09:12 | Emergency (ER) | payer OTHER ==
--- NOTE | 2018-11-10 09:33 | ER Document Report ---
ED Medical Screen (RME) - General Chief Complaint: Chest Pain Stated Complaint: BLOOD SUGAR ISSUE Time Seen by Provider: 11/10/18 09:30 Notes: Patient says she is experiencing tingling of her feet tightness in her chest this morning. She thinks her blood pressure is up. She is on medications for her blood pressure. She has been told in the past her blood sugar was a little bit but she is not on any medications for blood sugar. PMH: Anxiety, has a mental health provider. TRAVEL OUTSIDE OF THE [place] IN LAST 30 DAYS: No - Related Data Allergies/Adverse Reactions: No Known Allergies Allergy (Verified 11/10/18 09:13) Past Medical History - Social History Chew tobacco use (# tins/day): No Frequency of alcohol use: None Drug Abuse: Marijuana - Past Medical History Cardiac Medical History: Reports: Hx Hypertension Renal/ Medical History: Denies: Hx Peritoneal Dialysis Psychiatric Medical History: Reports: Hx Depression - and anxiety Past Surgical History: Reports: Hx Hysterectomy, Hx Tubal Ligation - Immunizations Immunizations up to date: Yes Hx Diphtheria, Pertussis, Tetanus Vaccination: No History of Influenza Vaccine for 08/2017 - 01/2018 Season: Unknown Physical Exam - Vital signs Vitals: Temp Pulse Resp BP Pulse Ox 99.3 F 89 18 182/115 H 100 11/10/18 09:23 11/10/18 09:23 11/10/18 09:23 11/10/18 09:23 11/10/18 09:23 Course - Vital Signs Vital signs: Temp Pulse Resp BP Pulse Ox 99.3 F 89 18 182/115 H 100 11/10/18 09:23 11/10/18 09:23 11/10/18 09:23 11/10/18 09:23 11/10/18 09:23
[2018-11-10 10:09] LABS: ABSOLUTE BASOPHILS # (AUTO) 0.1 10^3/uL (0.0-0.2); ABSOLUTE EOSINOPHILS # (AUTO) 0.1 10^3/uL (0.0-0.6); ABSOLUTE LYMPHOCYTES (AUTO) 2.7 10^3/uL (0.5-4.7); ABSOLUTE MONOCYTES (AUTO) 0.3 10^3/uL (0.1-1.4); ABSOLUTE NEUT (AUTO) 3.8 10^3/uL (1.7-8.2); EOSINOPHILS % (AUTO) 1.6 % (0-6); HEMATOCRIT 36.9 % (36.0-47.0); HEMOGLOBIN 12.7 g/dL (12.0-15.5); LYMPHOCYTES % (AUTO) 38.9 % (13-45); MEAN CORPUSCULAR HEMOGLOBIN 29.4 pg (27.0-33.4); MEAN CORPUSCULAR HGB CONC 34.4 g/dL (32.0-36.0); MEAN CORPUSCULAR VOLUME 85 fl (80-97); MONOCYTES % (AUTO) 4.5 % (3-13); PLATELET COUNT 254 10^3/uL (150-450); RED BLOOD COUNT 4.32 10^6/uL (3.72-5.28); RED CELL DISTRIBUTION WIDTH 14.4 % (11.5-14.0); TOTAL CELLS COUNTED % (AUTO) 100 %
[2018-11-10 10:24] LABS: ALANINE AMINOTRANSFERASE 12 U/L (9-52); ALBUMIN 4.1 g/dL (3.5-5.0); ALKALINE PHOSPHATASE 51 U/L (38-126); ANION GAP 8 (5-19); ASPARTATE AMINO TRANSFERASE 19 U/L (14-36); BILIRUBIN,DIRECT 0.2 mg/dL (0.0-0.4); BILIRUBIN,TOTAL 0.3 mg/dL (0.2-1.3); BLOOD UREA NITROGEN 12 mg/dL (7-20); CALCIUM 9.5 mg/dL (8.4-10.2); CARBON DIOXIDE 24 mmol/L (22-30); CHLORIDE 107 mmol/L (98-107); GLUCOSE 97 mg/dL (75-110); LIPASE 81.1 U/L (23-300); POTASSIUM 4.1 mmol/L (3.6-5.0); SODIUM 138.9 mmol/L (137-145); TOTAL PROTEIN 6.8 g/dL (6.3-8.2)
--- NOTE | 2018-11-10 10:25 | EKG REPORT ---
SEVERITY:- OTHERWISE NORMAL ECG - SINUS RHYTHM BORDERLINE LEFT AXIS DEVIATION : Confirmed by: Jose Juan Crouch 10-Nov-2018 10:23:46
[2018-11-10] MEDS ORDERED: LORAZEPAM 1 MG TABLET PO ONE (10:43)
[2018-11-10] MEDS ORDERED: ASPIRIN 325 MG TABLET PO ONE (10:43)
[2018-11-10] MEDS ORDERED: LOSARTAN POTASSIUM 50 MG TABLET PO ONE (10:44)
[2018-11-10 10:47] LABS: CREATINE KINASE MB 0.93 ng/mL (<4.55)
[2018-11-10 10:48] LABS: TROPONIN I < 0.012 ng/mL
--- NOTE | 2018-11-10 10:48 | ER Document Report ---
ED General - General Chief Complaint: Chest Pain Stated Complaint: BLOOD SUGAR ISSUE Time Seen by Provider: 11/10/18 09:30 Information source: Patient Notes: 43-year-old female with past medical history of high blood pressure as well as anxiety who presents today stating at around 4 AM she felt some "chest pain". She states it was to the substernal region. She denies any radiation, nausea, vomiting, fevers, shortness of breath, calf pain or leg swelling. She also states she felt some "tingling" to her hands and feet. Patient was seen and evaluated here in [place] within the last month secondary to some anxiety. Her medications were altered. [facility] [place] [facility]. New medications were prescribed to the patient that are currently being shipped. Patient denies any auditory or visual hallucinations. Patient states that she has been noncompliant with her Cozaar blood pressure medications over the last 3 days. She states however that she does have a m edications. She states she is afraid at times that her blood pressure will go "too low". Patient denies any chest pain at this time. TRAVEL OUTSIDE OF THE [place] IN LAST 30 DAYS: No - HPI Onset: Other - See above Onset/Duration: Gone Quality of pain: Dull Severity: Mild Pain Level: Denies Associated symptoms: Other Exacerbated by: Denies Relieved by: Denies Similar symptoms previously: No Recently seen / treated by doctor: Yes - Related Data Allergies/Adverse Reactions: No Known Allergies Allergy (Verified 11/10/18 09:13) Past Medical History - Social History Smoking Status: Current Every Day Smoker Chew tobacco use (# tins/day): No Frequency of alcohol use: None Drug Abuse: Marijuana Family History: None Patient has suicidal ideation: No Patient has homicidal ideation: No - Past Medical History Cardiac Medical History: Reports: Hx Hypertension Renal/ Medical History: Denies: Hx Peritoneal Dialysis Psychiatric Medical History: Reports: Hx Depression - and anxiety Past Surgical History: Reports: Hx Hysterectomy, Hx Tubal Ligation - Immunizations Immunizations up to date: Yes Hx Diphtheria, Pertussis, Tetanus Vaccination: No Review of Systems - Review of Systems Constitutional: denies: Fever EENT: denies: Eye discharge, Nose discharge Cardiovascular: denies: Palpitations, Heart racing Respiratory: denies: Short of breath Gastrointestinal: denies: Vomiting Genitourinary: denies: Dysuria Musculoskeletal: denies: Leg swelling Skin: Other - no hives. denies: Rash Neurological/Psychological: Other - no slurred speech -: Yes All other systems reviewed and negative Physical Exam - Vital signs Vitals: Temp Pulse Resp BP Pulse Ox 99.3 F 89 18 182/115 H 100 11/10/18 09:23 11/10/18 09:23 11/10/18 09:23 11/10/18 09:23 11/10/18 09:23 Notes: Reviewed vital signs and nursing note as charted by RN. CONSTITUTIONAL: Alert and oriented and responds appropriately to questions. Well-appearing; well-nourished HEAD: Normocephalic; atraumatic EYES: PERRL; Conjunctivae clear, sclerae non-icteric ENT: Normal nose; no rhinorrhea; moist mucous membranes; pharynx without lesions noted NECK: Supple without meningismus; non-tender; no cervical lymphadenopathy, no masses CARD: Regular rate and rhythm; no murmurs; symmetric distal pulses RESP: Normal chest excursion without splinting or tachypnea; breath sounds clear and equal bilaterally; no wheezes, no rhonchi, no rales ABD/GI: Normal bowel sounds; non-distended; soft, non-tender BACK: The back appears normal and is non-tender to palpation EXT: Normal ROM in all joints; non-tender to palpation; no edema SKIN: No acute lesions noted NEURO: CN 2-12 intact; 5/5 bilateral upper and lower extremity strength with sensation intact to light touch PSYCH: The patient's mood and manner are appropriate. Grooming and personal hygiene are appropriate. Course - Re-evaluation Re-evalutation: 11/10/18 10:47 Given the above history and physical examination I do believe aortic dissection and pulmonary embolism to be extremely unlikely. Patient is currently chest pain-free. Blood pressure is 180/110. I will provide the patient hold home dose of Cozaar. I will also provide a 1 mg dose of Ativan. I do believe that this is most likely anxiety related. I also believe that this is secondary to medication noncompliance. I have looked up and discussed with the patient the previous medications she was on when she was seen here. Patient states that the medication should arrive in the next 2-3 days. Patient denies any auditory or visual hallucinations, suicidal or homicidal ideations. Patient states she does have enough blood pressure medications at home but just missed taking the last 2 doses. She denies any headache or leg swelling. Currently chest pain-free. Aspirin has been provided. 11/10/18 11:00 EKG shows a heart rate of 91, normal sinus rhythm, minimal left axis deviation, no ST elevation or depression. 11/10/18 13:24 Blood pressure is improved. Patient denies any pain at this time. 11/10/18 13:51 Patient denies any pain. Repeat troponin is unremarkable. I have provided the patient the list of medications that she was taking for her psychiatric illness upon discharge. Patient denies any suicidal or homicidal ideations at this time. Her anxiety is much improved. She states her medication should be arriving shortly. Patient will be discharged home with strict return precautions and instructions to follow-up with her primary care physician. She understands to take her blood pressure medications appropriately. - Vital Signs Vital signs: Temp Pulse Resp BP Pulse Ox 99.3 F 89 19 148/97 H 100 11/10/18 09:23 11/10/18 09:23 11/10/18 13:02 11/10/18 13:02 11/10/18 13:02 - Laboratory Result Diagrams: 11/10/18 09:47 11/10/18 09:47 Laboratory results interpreted by me: 11/10/18 11/10/18 09:47 09:47 RDW 14.4 H Urine Blood SMALL H Discharge - Discharge Clinical Impression: Elevated blood pressure reading, Anxiety reaction Chest pain Qualifiers: Chest pain type: unspecified Qualified Code(s): R07.9 - Chest pain, unspecified Condition: Good Disposition: HOME, SELF-CARE Additional Instructions: Come back immediately for any return of pain, change in location or quality of pain, weakness or numbness, fevers or vomiting, or any other acute problems. Please make sure that you take your medications as prescribed and follow-up with your primary care physician as we have discussed.
[2018-11-10 11:03] LABS: APPEARANCE,URINE CLEAR; BILIRUBIN,URINE NEGATIVE (NEGATIVE); COLOR,URINE STRAW; GLUCOSE, URINE NEGATIVE (NEGATIVE); KETONES,URINE NEGATIVE (NEGATIVE); LEUKOCYTE ESTERASE,URINE NEGATIVE (NEGATIVE); NITRITE,URINE NEGATIVE (NEGATIVE); PROTEIN,URINE NEGATIVE (NEGATIVE); URINE SPECIFIC GRAVITY 1.004; UROBILINOGEN,URINE NEGATIVE mg/dL (<2.0)
--- NOTE | 2018-11-10 11:22 | RADIOLOGY REPORT (SQ) ---
EXAM DESCRIPTION: CHEST 2 VIEWS COMPLETED DATE/TIME: 11/10/2018 11:11 am REASON FOR STUDY: Chest pain COMPARISON: None. EXAM PARAMETERS: NUMBER OF VIEWS: two views TECHNIQUE: Digital Frontal and Lateral radiographic views of the chest acquired. RADIATION DOSE: NA LIMITATIONS: none FINDINGS: LUNGS AND PLEURA: No opacities, masses or pneumothorax. No pleural effusion. MEDIASTINUM AND HILAR STRUCTURES: No masses or contour abnormalities. HEART AND VASCULAR STRUCTURES: Heart normal size. No evidence for failure. BONES: No acute findings. HARDWARE: None in the chest. OTHER: No other significant finding. IMPRESSION: NO ACUTE RADIOGRAPHIC FINDING IN THE CHEST. TECHNICAL DOCUMENTATION: JOB ID: [id number] [employer]- All Rights Reserved Reading location - IP/workstation name: [email or web address]
[2018-11-10 14:08] VITALS: BP 121/86
== END 2018-11-10 14:56 | disposition home or self-care (01) ==
LOC: ER 09:12
DX: F41.1 Generalized anxiety disorder (principal); I10 Essential (primary) hypertension; T46.5X6A Underdosing of other antihypertensive drugs, initial encounter; Z91.128 Patient's intentional underdosing of medication regimen for other reason; Z91.14 Patient's other noncompliance with medication regimen; R07.2 Precordial pain; R20.2 Paresthesia of skin; F17.200 Nicotine dependence, unspecified, uncomplicated; F12.10 Cannabis abuse, uncomplicated
CPT/HCPCS: 36415; 71046; 80053; 81001; 82553; 83690; 84484; 85025; 93005; 93010; 99285

== ENCOUNTER 2018-11-11 01:22 | Emergency (ER) | payer OTHER ==
[2018-11-11] MEDS ORDERED: LORAZEPAM INJ 2 MG/1 ML VIAL IV ONE (02:02)
--- NOTE | 2018-11-11 02:11 | ER Document Report ---
ED General - General Chief Complaint: Chest Pain Stated Complaint: BLOOD PRESSURE ISSUE Time Seen by Provider: 11/11/18 01:47 Notes: Patient is a 43-year-old female that presents to the emergency department for chief complaint of chest pain and anxiety. Patient states that since yesterday she is been feeling more anxious, but over the last hour and a half prior to ED arrival she is felt chest tightness and heaviness, and some shortness of breath, an increase in her anxiety. She states she has had somewhat of a sore throat as well. Denies any fevers, chills, night sweats, nausea, vomiting or abdominal pain. She denies prior history of coronary artery disease, denies history of diabetes. She does have hypertension, is on medication and did take her medication earlier in the morning. She also admits to smoking cigarettes, denies family history of early coronary disease, diabetes, or hyperlipidemia. She currently describes her pain as a pressure in her chest, she describes as a 2 out of 10, and a tightness and heaviness. It is not worse or better with exertion or rest respectively Past Medical History: Hypertension, anxiety Past Surgical History: PRK, hysterectomy Social History: Admits to smoking cigarettes daily, denies alcohol or drug use. Family History: Reviewed and noncontributory for presenting illness Allergies: Reviewed, see documented allergy list. REVIEW OF SYSTEMS: Other than noted above, the 12 point review of systems was reviewed with the patient and were negative, all pertinent findings are included in the HPI. PHYSICAL EXAMINATION: Vital signs reviewed, nursing noted reviewed. GENERAL: Well-appearing, well-nourished and in no acute distress. HEAD: Atraumatic, normocephalic. EYES: Eyes appear normal, extraocular movements intact, sclera anicteric, conjunctiva are normal. ENT: nares patent, oropharynx clear without exudates. Moist mucous membranes. NECK: Normal range of motion, supple without lymphadenopathy LUNGS: Breath sounds clear to auscultation bilaterally and equal. No wheezes rales or rhonchi. HEART: Regular rate and rhythm without murmurs ABDOMEN: Soft, nontender, normoactive bowel sounds. No rebound, guarding, or rigidity. No masses appreciated. EXTREMITIES: Nontender, good range of motion, no pitting or edema. NEUROLOGICAL: No focal neurological deficits. Moves all extremities spontaneously Motor and sensory grossly intact on exam. PSYCH: Flat affect, but answering questions appropriately SKIN: Warm, Dry, normal turgor, no rashes or lesions noted on exposed skin TRAVEL OUTSIDE OF THE [place] IN LAST 30 DAYS: No - Related Data Allergies/Adverse Reactions: No Known Allergies Allergy (Verified 11/10/18 09:13) Past Medical History - Social History Smoking Status: Current Every Day Smoker Family History: None, Reviewed & Not Pertinent - Past Medical History Cardiac Medical History: Reports: Hx Hypertension Renal/ Medical History: Denies: Hx Peritoneal Dialysis Psychiatric Medical History: Reports: Hx Depression - and anxiety Past Surgical History: Reports: Hx Hysterectomy, Hx Tubal Ligation - Immunizations Immunizations up to date: Yes Hx Diphtheria, Pertussis, Tetanus Vaccination: No Physical Exam - Vital signs Vitals: Pulse Ox 100 11/11/18 01:49 Course - Re-evaluation Re-evalutation: Presentation of chest pain in an otherwise well appearing patient. Low clinical suspicion for ACS given clinical history, exam, EKG without ST elevations or depressions, and negative initial troponin. HEART score less than or equal to 3. PE also seems unlikely given clinical history, absence of tachycardia or dyspnea. Patient is PERC criteria negative. CXR without evidence of pneumothorax or pneumonia. No widened mediastinum. Aortic dissection also seems unlikely given history, symmetric pulses, CXR, and vitals. HEART Score: History: 1 EC Age: 1 Risk Factors: 1 Troponin: 0 Total: 2 Chest pain in a patient without evidence of cardiac or other serious etiology on workup today. I discussed with patient that, based on their age, risk factors and emergency department testing today, the likelihood that their symptoms are related to a heart attack is very low (estimated risk of heart attack or over the next 30 days of less than 1%). The patient demonstrates decision making capacity and has verbalized an understanding of these risks to me. Based on this, the patient has chosen to follow-up as an outpatient. Usual chest pain return precautions reviewed. The patient states understanding and agreement with this plan. Patient symptoms seem most consistent with a panic attack, she was given Ativan, is feeling much better, she had 2- troponins, at this point I feel the patient can be discharged home safely, to follow-up as outpatient with primary care and cardiology. - Vital Signs Vital signs: Temp Pulse Resp BP Pulse Ox 100 11/11/18 01:49 - Laboratory Result Diagrams: 11/11/18 02:23 11/11/18 02:52 Laboratory results interpreted by me: 11/11/18 11/11/18 02:23 02:52 RDW 14.5 H Chloride 110 H Total Protein 5.9 L Albumin 3.3 L - EKG Interpretation by Me Additional EKG results interpreted by me: 11/11/18 06:13 EKG demonstrates sinus rhythm with a ventricular rate of 80 bpm, borderline left axis deviation, normal intervals, no evidence of acute ischemia on this EKG, this is compared with prior EKG, without significant change. Discharge - Discharge Clinical Impression: Stress reaction Chest pain Qualifiers: Chest pain type: unspecified Qualified Code(s): R07.9 - Chest pain, unspecified Condition: Stable Disposition: HOME, SELF-CARE Instructions: Chest Pain of Unclear Cause ([facility]), Panic Attack ([facility]) Additional Instructions: Please return to the emergency department if you have any worsening, or concern of your symptoms. Please return to the emergency department if you develop chest pain, difficulty breathing, severe abdominal pain, or ongoing vomiting. Please follow-up with your primary care physician in 2-3 days and any other recommended physicians. If prescribed, take all medications as directed. If you have any questions or concerns do not hesitate to return the emergency department for evaluation. Referrals: LAY LACY MD [ACTIVE STAFF] - Follow up in 3-5 days MALENA BHANDARI MD [COMMUNITY BASED STAFF] - Follow up in 3-5 days
[2018-11-11 02:31] LABS: ABSOLUTE BASOPHILS # (AUTO) 0.1 10^3/uL (0.0-0.2); ABSOLUTE EOSINOPHILS # (AUTO) 0.2 10^3/uL (0.0-0.6); ABSOLUTE LYMPHOCYTES (AUTO) 3.2 10^3/uL (0.5-4.7); ABSOLUTE MONOCYTES (AUTO) 0.4 10^3/uL (0.1-1.4); ABSOLUTE NEUT (AUTO) 3.2 10^3/uL (1.7-8.2); BASOPHILS % (AUTO) 1.2 % (0-2); EOSINOPHILS % (AUTO) 3.4 % (0-6); HEMATOCRIT 36.7 % (36.0-47.0); HEMOGLOBIN 12.3 g/dL (12.0-15.5); LYMPHOCYTES % (AUTO) 44.9 % (13-45); MEAN CORPUSCULAR HEMOGLOBIN 28.5 pg (27.0-33.4); MEAN CORPUSCULAR HGB CONC 33.6 g/dL (32.0-36.0); MEAN CORPUSCULAR VOLUME 85 fl (80-97); MONOCYTES % (AUTO) 5.5 % (3-13); PLATELET COUNT 249 10^3/uL (150-450); RED BLOOD COUNT 4.33 10^6/uL (3.72-5.28); RED CELL DISTRIBUTION WIDTH 14.5 % (11.5-14.0); TOTAL CELLS COUNTED % (AUTO) 100 %; WHITE BLOOD COUNT 7.1 10^3/uL (4.0-10.5)
--- NOTE | 2018-11-11 02:46 | RADIOLOGY REPORT (SQ) ---
EXAM DESCRIPTION: XR CHEST 1 VIEW COMPLETED DATE/TME: 11/11/2018 01:49 CLINICAL HISTORY: 43 years, Female, chest pain COMPARISON: 11/10/2018 chest x-ray NUMBER OF VIEWS: 1 TECHNIQUE: Portable chest LIMITATIONS: None. FINDINGS: Heart size normal. Lungs are clear. No pneumothorax IMPRESSION: Negative chest copyright 2010 [email or web address]- All Rights Reserved
[2018-11-11 03:57] LABS: ALANINE AMINOTRANSFERASE 13 U/L (9-52); ALBUMIN 3.3 g/dL (3.5-5.0); ALKALINE PHOSPHATASE 44 U/L (38-126); ANION GAP 6 (5-19); ASPARTATE AMINO TRANSFERASE 16 U/L (14-36); BILIRUBIN,DIRECT 0.2 mg/dL (0.0-0.4); BILIRUBIN,TOTAL 0.2 mg/dL (0.2-1.3); BLOOD UREA NITROGEN 11 mg/dL (7-20); CALCIUM 8.7 mg/dL (8.4-10.2); CARBON DIOXIDE 23 mmol/L (22-30); CHLORIDE 110 mmol/L (98-107); GLUCOSE 93 mg/dL (75-110); POTASSIUM 3.8 mmol/L (3.6-5.0); SODIUM 139.3 mmol/L (137-145); TOTAL PROTEIN 5.9 g/dL (6.3-8.2)
[2018-11-11 06:16] VITALS: BP 114/73
--- NOTE | 2018-11-11 15:05 | EKG REPORT ---
SEVERITY:- OTHERWISE NORMAL ECG - SINUS RHYTHM BORDERLINE LEFT AXIS DEVIATION : Confirmed by: Jose Juan Crouch 11-Nov-2018 15:05:12
== END 2018-11-11 06:16 | disposition home or self-care (01) ==
LOC: ER 01:22
DX: R07.9 Chest pain, unspecified (principal); F43.9 Reaction to severe stress, unspecified; F41.9 Anxiety disorder, unspecified; F17.210 Nicotine dependence, cigarettes, uncomplicated; I10 Essential (primary) hypertension; Z90.710 Acquired absence of both cervix and uterus
CPT/HCPCS: 93005; 99285; 96374; 36415; 85025; 80053; 84484; 71045; 93010; J2060

== ENCOUNTER 2018-11-13 00:57 | Emergency (ER) | payer OTHER ==
[2018-11-13 02:04] LABS: ABSOLUTE BASOPHILS # (AUTO) 0.1 10^3/uL (0.0-0.2); ABSOLUTE EOSINOPHILS # (AUTO) 0.2 10^3/uL (0.0-0.6); ABSOLUTE LYMPHOCYTES (AUTO) 3.2 10^3/uL (0.5-4.7); ABSOLUTE MONOCYTES (AUTO) 0.4 10^3/uL (0.1-1.4); ABSOLUTE NEUT (AUTO) 3.5 10^3/uL (1.7-8.2); BASOPHILS % (AUTO) 0.8 % (0-2); EOSINOPHILS % (AUTO) 2.8 % (0-6); HEMOGLOBIN 11.9 g/dL (12.0-15.5); LYMPHOCYTES % (AUTO) 43.1 % (13-45); MEAN CORPUSCULAR HGB CONC 34.1 g/dL (32.0-36.0); MEAN CORPUSCULAR VOLUME 85 fl (80-97); MONOCYTES % (AUTO) 5.8 % (3-13); PLATELET COUNT 255 10^3/uL (150-450); RED BLOOD COUNT 4.12 10^6/uL (3.72-5.28); RED CELL DISTRIBUTION WIDTH 14.6 % (11.5-14.0); SEGMENTED NEUTROPHILS % (AUTO) 47.5 % (42-78); TOTAL CELLS COUNTED % (AUTO) 100 %; WHITE BLOOD COUNT 7.4 10^3/uL (4.0-10.5)
[2018-11-13 02:08] LABS: APPEARANCE,URINE CLEAR; BILIRUBIN,URINE NEGATIVE (NEGATIVE); COLOR,URINE STRAW; GLUCOSE, URINE NEGATIVE (NEGATIVE); KETONES,URINE NEGATIVE (NEGATIVE); LEUKOCYTE ESTERASE,URINE NEGATIVE (NEGATIVE); NITRITE,URINE NEGATIVE (NEGATIVE); PROTEIN,URINE NEGATIVE (NEGATIVE); URINE SPECIFIC GRAVITY 1.006; UROBILINOGEN,URINE NEGATIVE mg/dL (<2.0)
[2018-11-13 02:20] LABS: ALANINE AMINOTRANSFERASE 15 U/L (9-52); ALBUMIN 3.6 g/dL (3.5-5.0); ALKALINE PHOSPHATASE 49 U/L (38-126); ANION GAP 6 (5-19); ASPARTATE AMINO TRANSFERASE 15 U/L (14-36); BILIRUBIN,DIRECT 0.1 mg/dL (0.0-0.4); BILIRUBIN,TOTAL 0.3 mg/dL (0.2-1.3); BLOOD UREA NITROGEN 12 mg/dL (7-20); CALCIUM 9.1 mg/dL (8.4-10.2); CARBON DIOXIDE 23 mmol/L (22-30); CHLORIDE 111 mmol/L (98-107); GLUCOSE 92 mg/dL (75-110); SODIUM 139.6 mmol/L (137-145); TOTAL PROTEIN 6.3 g/dL (6.3-8.2)
--- NOTE | 2018-11-13 02:42 | ER Document Report ---
ED General - General Chief Complaint: Chest Pain Stated Complaint: CHEST PAIN Time Seen by Provider: 11/13/18 01:36 Notes: 43-year-old female who has been seen in this emergency department 8 times in the last month for various mental health concerns presents to the emergency department this evening for sharp chest pains and anxiety. Per patient she was at home and started having stabbing chest pains head was a little bit dizzy. She decided that she needed to come in for evaluation. She was last seen here on 11/11 for similar symptoms. She endorses no new symptoms. She is 1/2 pack/day smoker and is a heavy marijuana user. Her primary care is at the [facility] clinic. She currently denies lightheadedness, impending sense of doom, sh ortness of breath, chest tightness, nausea, vomiting, numbness, paresthesias, or any other symptoms. TRAVEL OUTSIDE OF THE [place] IN LAST 30 DAYS: No - HPI Patient complains to provider of: chest pain and anxiety - Related Data Allergies/Adverse Reactions: No Known Allergies Allergy (Verified 11/10/18 09:13) Past Medical History - General Information source: Patient - Social History Smoking Status: Current Every Day Smoker Drug Abuse: Marijuana Family History: None, Reviewed & Not Pertinent - Past Medical History Cardiac Medical History: Reports: Hx Hypertension Renal/ Medical History: Denies: Hx Peritoneal Dialysis Psychiatric Medical History: Reports: Hx Depression - and anxiety Past Surgical History: Reports: Hx Hysterectomy, Hx Tubal Ligation - Immunizations Immunizations up to date: Yes Hx Diphtheria, Pertussis, Tetanus Vaccination: No Review of Systems - Review of Systems Constitutional: See HPI EENT: See HPI Cardiovascular: See HPI Respiratory: See HPI Gastrointestinal: See HPI Genitourinary: No symptoms reported Female Genitourinary: No symptoms reported Musculoskeletal: No symptoms reported Skin: No symptoms reported Hematologic/Lymphatic: No symptoms reported Neurological/Psychological: See HPI Physical Exam - Vital signs Vitals: Temp Pulse BP Pulse Ox 98.6 F 80 153/93 H 100 11/13/18 01:11 11/13/18 01:11 11/13/18 01:11 11/13/18 01:11 - Notes Notes: Reviewed vital signs and nursing note as charted by RN. CONSTITUTIONAL: Well-appearing, well-nourished, acting appropriately for age HEAD: Normocephalic, atraumatic, no swelling EYES: PERRL, Conjunctivae clear, no drainage, EOMI, no scleral icterus ENT: External ears without lesions, no tonsillar hypertrophy, airway patent, m ucous membranes pink and moist NECK: Supple, no cervical lymphadenopathy, no masses CARD: Regular rate and rhythm, no murmurs, no rubs, no gallops, capillary refill < 2 seconds, symmetric pulses RESP: The lungs are clear to auscultation bilaterally, no wheezing, no rales, no rhonchi. Respiratory rate and effort are normal, normal chest excursion. No respiratory distress, no retractions, no stridor, no nasal flaring, no accessory muscle use. ABD/GI: Normal bowel sounds, non-distended, soft, non-tender, no rebound, no guarding, no palpable organomegaly EXT: Normal ROM in all joints, non-tender to palpation, no effusions, no edema SKIN: Normal color for age and race, warm, dry, good turgor, no acute lesions noted NEURO: No facial asymmetry, moves all extremities equally, motor and sensory function intact, strength 5/5 x 4 extremities, no focal neuro deficits - General General appearance: Appears well, Alert Course - Re-evaluation Re-evalutation: 11/13/18 02:40 This is a 43-year-old female who presents to the emergency department this evening for sharp chest pains and anxiety. She has been seen in this emergency department 4 times this week and 8 times in the last month. Previous visits she has requested help for marijuana addiction, has been seen by behavioral health team who deemed her safe for discharge. Tonight she is laying in the bed still with flat affect in no acute distress. She endorses that she just does not feel right and she has anxiety. EKG showed no evidence of STEMI or ischemia although she had a negative troponin just 36 hours ago I will still get one troponin to rule out any cardiac etiology even though I have a very low suspicion for that. Her symptoms most likely stem from mental health issues. 11/13/18 03:23 Discussed with patient at length her issues are most likely related to anxiety and mental health concerns. I gave her some [facility]. She is currently being seen by mental health provider but I encouraged her to enroll in the online [employer] event to give her better access. I also discussed with her about the vet center and another resource to help with her mental health problems. At this time the patient was very calm and agreeable. I asked her if she was comfortable going home once the troponin resulted and she said yes she is. She does live with her mom and her daughter so there will be someone there to offer some type of supervision. - Vital Signs Vital signs: Temp Pulse Resp BP Pulse Ox 98.6 F 80 17 153/93 H 100 11/13/18 01:11 11/13/18 01:11 11/13/18 03:01 11/13/18 01:11 11/13/18 02:01 - Laboratory Result Diagrams: 11/13/18 01:52 11/13/18 01:52 Laboratory results interpreted by me: 11/13/18 11/13/18 11/13/18 01:52 01:52 01:52 Hgb 11.9 L Hct 35.0 L RDW 14.6 H Chloride 111 H Urine Blood SMALL H Discharge - Discharge Clinical Impression: Anxiety Chest pain Qualifiers: Chest pain type: unspecified Qualified Code(s): R07.9 - Chest pain, unspecified Condition: Good Disposition: HOME, SELF-CARE Instructions: Anxiety ([facility]), Chest Pain of Unclear Cause ([facility]) Additional Instructions: You are seen in the emergency department this evening for chest pain and anxiety. This issue is most likely related to anxiety. Your EKG was completely normal and your blood test to check for stress of your heart was negative. All your other lab work was normal. I implore you to follow-up on what we are talking about and register for my health event which will give you much better access to your providers. This way you can reach out to them at will. Also, like we discussed if you are having problems within the [facility] please reach out to the [facility]. Please get these issues addressed as your mental health is important. If you develop severe chest pain, have severe anxiety, or if you do have any other concerns please do not hesitate to come back.
[2018-11-13 03:53] VITALS: BP 119/90
--- NOTE | 2018-11-13 08:53 | EKG REPORT ---
SEVERITY:- OTHERWISE NORMAL ECG - SINUS RHYTHM BORDERLINE LEFT AXIS DEVIATION : Confirmed by: Jose Juan Crouch 13-Nov-2018 08:53:21
== END 2018-11-13 03:58 | disposition home or self-care (01) ==
LOC: ER 00:57
DX: R07.9 Chest pain, unspecified (principal); F41.9 Anxiety disorder, unspecified; F17.210 Nicotine dependence, cigarettes, uncomplicated; I10 Essential (primary) hypertension; Z90.710 Acquired absence of both cervix and uterus
CPT/HCPCS: 36415; 80053; 81001; 81025; 84484; 85025; 93005; 93010; 99285

== ENCOUNTER 2018-11-14 21:42 | Emergency (ER) | payer OTHER ==
[2018-11-14 22:00] VITALS: BP 152/100
--- NOTE | 2018-11-14 23:14 | ER Document Report ---
ED Psych Disorder / Suicide - General Chief Complaint: Anxiety Stated Complaint: SORE THROAT,ANXIETY,BLOOD PRESSURE ISSUES Time Seen by Provider: 11/14/18 23:14 Mode of Arrival: Ambulatory Information source: Patient Notes: Patient is a 43-year-old female with a long history of anxiety and depression, as well as repeated visits to the emergency department, who presents with increased anxiety. Patient has had numerous workups in the last month in this facility for similar vague complaints. She denies chest pain, no fevers, no nausea or vomiting, no shortness of breath, no recent illness. She states that she has no medications for anxiety and "smokes marijuana to cope," reports being seen by a psychiatrist at the [facility] in the past but has never been on medication. She currently denies suicidal or homicidal ideations, no hallucinations, no delusions. She denies drug use other than marijuana. TRAVEL OUTSIDE OF THE [place] IN LAST 30 DAYS: No - HPI Patient complains to provider of: Other - Anxiety Onset: Other - Chronic Onset was: Cannot confirm Quality of pain: No pain Severity: None Pain Level: Denies Suicide Risk Factors: Chronic illness, Depressed, Panic disorder Normal mood: No - Depressed Associated symptoms: Anxious, Decreased appetite, Depressed Similar symptoms previously: Yes Recently seen / treated by doctor: Yes - Related Data Allergies/Adverse Reactions: No Known Allergies Allergy (Verified 11/10/18 09:13) Past Medical History - General Information source: Patient - Social History Smoking Status: Never Smoker Frequency of alcohol use: None Drug Abuse: Marijuana Occupation: Unemployed Lives with: Family Family History: None, Reviewed & Not Pertinent Patient has suicidal ideation: No Patient has homicidal ideation: No - Past Medical History Cardiac Medical History: Reports: Hx Hypertension Pulmonary Medical History: Reports: None EENT Medical History: Reports: None Neurological Medical History: Reports: None Endocrine Medical History: Reports: None Renal/ Medical History: Reports: None. Denies: Hx Peritoneal Dialysis Malignancy Medical History: Reports: None GI Medical History: Reports: None Musculoskeletal Medical History: Reports None Skin Medical History: Reports None Psychiatric Medical History: Reports: Hx Anxiety, Hx Depression - and anxiety Traumatic Medical History: Reports: None Infectious Medical History: Reports: None Past Surgical History: Reports: Hx Hysterectomy, Hx Tubal Ligation - Immunizations Immunizations up to date: Yes Hx Diphtheria, Pertussis, Tetanus Vaccination: No Review of Systems - Review of Systems Constitutional: No symptoms reported EENT: No symptoms reported Cardiovascular: No symptoms reported Respiratory: No symptoms reported Gastrointestinal: No symptoms reported Genitourinary: No symptoms reported Female Genitourinary: No symptoms reported Musculoskeletal: No symptoms reported Skin: No symptoms reported Hematologic/Lymphatic: No symptoms reported Neurological/Psychological: See HPI, Depression, Anxiety -: Yes All other systems reviewed and negative Physical Exam - Vital signs Vitals: Temp Pulse Resp BP Pulse Ox 99.2 F 93 14 152/100 H 99 11/14/18 21:58 11/14/18 21:58 11/14/18 21:58 11/14/18 21:58 11/14/18 21:58 Interpretation: Normal - Notes Notes: Patient is well-appearing in no acute distress - General General appearance: Appears well, Alert - HEENT Head: Normocephalic, Atraumatic Eyes: Normal Pupils: PERRL - Respiratory Respiratory status: No respiratory distress Chest status: Nontender Breath sounds: Normal Chest palpation: Normal - Cardiovascular Rhythm: Regular Heart sounds: Normal auscultation Murmur: No - Abdominal Inspection: Normal Distension: No distension Bowel sounds: Normal Tenderness: Nontender Organomegaly: No organomegaly - Rectal Notes: Deferred - Genitourinary Notes: Deferred - Back Back: Normal, Nontender - Extremities General upper extremity: Normal inspection, Nontender, Normal color, Normal ROM, Normal temperature General lower extremity: Normal inspection, Nontender, Normal color, Normal ROM, Normal temperature, Normal weight bearing. No: Gisselle's sign - Neurological Neuro grossly intact: Yes Cognition: Normal Orientation: AAOx4 Lizeth Coma Scale Eye Opening: Spontaneous [place] Coma Scale Verbal: Oriented Lizeth Coma Scale Motor: Obeys Commands [place] Coma Scale Total: 15 Speech: Normal Motor strength normal: LUE, RUE, LLE, RLE Sensory: Normal - Psychological Associated symptoms: Normal affect, Anxious. No: Aggressive, Agitated - Skin Skin Temperature: Warm Skin Moisture: Dry Skin Color: Normal Course - Re-evaluation Re-evalutation: 11/15/18 00:14 Unsure exactly why the patient has presented several times in the last 2 weeks for similar vague complaints or concerns. After review of previous visits, will repeat medical clearance and reassess the patient for discharge and psychiatry follow-up. 11/15/18 00:47 Patient is refusing to have her blood drawn and to give a urine sample. She will be discharged home with return precautions and follow-up with her primary physician. Patient voices understanding and agreement with the plan. - Vital Signs Vital signs: Temp Pulse Resp BP Pulse Ox 99.2 F 93 14 152/100 H 99 11/14/18 21:58 11/14/18 21:58 11/14/18 21:58 11/14/18 21:58 11/14/18 21:58 Discharge - Discharge Clinical Impression: Generalized anxiety disorder Condition: Good Disposition: HOME, SELF-CARE Instructions: Anxiety ([facility]) Additional Instructions: Please follow-up with your regular physician as well as [facility] as possible. Return to the emergency department if you experience worsening anxiety, worsening depression, thoughts of hurting herself, or have any other concerning symptoms. Print Language: Djiboutian
== END 2018-11-15 01:18 | disposition home or self-care (01) ==
LOC: ER 21:42
DX: F41.1 Generalized anxiety disorder (principal); F32.9 Major depressive disorder, single episode, unspecified; R63.0 Anorexia; I10 Essential (primary) hypertension; F12.10 Cannabis abuse, uncomplicated
CPT/HCPCS: 99283

== ENCOUNTER 2019-06-28 21:46 | Emergency (ER) | payer OTHER | END 2019-06-28 23:45 | disposition left against medical advice (07) | LOC: ER 21:46 | DX: Z53.21 Procedure and treatment not carried out due to patient leaving prior to being seen by health care provider (principal) ==

== ENCOUNTER 2019-08-27 23:57 | Emergency (ER) | payer OTHER ==
[2019-08-28 00:17] VITALS: BP 159/107
--- NOTE | 2019-08-28 00:40 | ER Document Report ---
ED General - General Chief Complaint: Abdominal Pain Stated Complaint: ABDOMINAL AND BACK PAIN Time Seen by Provider: 08/28/19 00:33 Primary Care Provider: MIHAELA CARROLL [Primary Care Provider] - Follow up as needed TRAVEL OUTSIDE OF THE [place] IN LAST 30 DAYS: No - HPI Patient complains to provider of: abdominal pain Notes: 44 y/o presenting to ED for evaluation of nonspecific abdominal pain she presented to the ED after walking in the rain to come here to be evaluated she subsequently states that after she got here her pain has resolved she denies fever, chills, vomiting/diarrhea, urinary pain, vaginal symptoms no abdominal distention - Related Data Allergies/Adverse Reactions: No Known Allergies Allergy (Verified 06/28/19 21:49) Past Medical History - Social History Smoking Status: Current Every Day Smoker Chew tobacco use (# tins/day): No Frequency of alcohol use: None Drug Abuse: None Family History: None, Reviewed & Not Pertinent Patient has suicidal ideation: No Patient has homicidal ideation: No - Past Medical History Cardiac Medical History: Reports: Hx Hypertension Renal/ Medical History: Denies: Hx Peritoneal Dialysis Psychiatric Medical History: Reports: Hx Anxiety, Hx Depression - and anxiety Past Surgical History: Reports: Hx Hysterectomy, Hx Tubal Ligation - Immunizations Immunizations up to date: Yes Hx Diphtheria, Pertussis, Tetanus Vaccination: No Review of Systems - Review of Systems Constitutional: No symptoms reported EENT: No symptoms reported Cardiovascular: No symptoms reported Respiratory: No symptoms reported Gastrointestinal: Abdominal pain. denies: Diarrhea, Nausea, Vomiting Genitourinary: No symptoms reported Female Genitourinary: No symptoms reported Musculoskeletal: No symptoms reported Skin: No symptoms reported Hematologic/Lymphatic: No symptoms reported Neurological/Psychological: No symptoms reported Physical Exam - Vital signs Vitals: Temp Pulse Resp BP Pulse Ox 98.3 F 77 16 159/107 H 100 08/28/19 00:16 08/28/19 00:16 08/28/19 00:16 08/28/19 00:16 08/28/19 00:16 Interpretation: Normal - General General appearance: Appears well, Alert In distress: None - HEENT Head: Normocephalic, Atraumatic Eyes: Normal Pupils: PERRL Mucous membranes: Normal Pharynx: Normal Neck: Normal. No: Lymphadenopathy - Respiratory Respiratory status: No respiratory distress Chest status: Nontender Breath sounds: Normal Chest palpation: Normal - Cardiovascular Rhythm: Regular Heart sounds: Normal auscultation Murmur: No Normal capillary refill: Yes - Abdominal Inspection: Normal Distension: No distension Bowel sounds: Normal Tenderness: Nontender Organomegaly: No organomegaly - Back Back: Normal, Nontender - Extremities General upper extremity: Normal inspection, Nontender, Normal color, Normal ROM, Normal temperature General lower extremity: Normal inspection, Nontender, Normal color, Normal ROM, Normal temperature, Normal weight bearing. No: Gisselle's sign - Neurological Neuro grossly intact: Yes Cognition: Normal Orientation: AAOx4 Lizeth Coma Scale Eye Opening: Spontaneous [place] Coma Scale Verbal: Oriented [place] Coma Scale Motor: Obeys Commands [place] Coma Scale Total: 15 Speech: Normal Motor strength normal: LUE, RUE, LLE, RLE Sensory: Normal - Psychological Associated symptoms: Normal affect, Normal mood - Skin Skin Temperature: Warm Skin Moisture: Dry Skin Color: Normal Course - Re-evaluation Re-evalutation: 08/28/19 01:32 patient denies any complaints after evaluation she denies having pain of any kind her vitals are normal she has denied any suicidal or homicidal thoughts she has denied hallucinations she does not appear intoxicated after asking her to provide a blood specimen, she is requesting discharge we will discharge her given her refusal to allow evaluation given that she denies any ongoing symptoms currently and does not appear to pose a risk to herself or others from a psychiatric standpoint - Vital Signs Vital signs: Temp Pulse Resp BP Pulse Ox 98.3 F 77 16 159/107 H 100 08/28/19 00:16 08/28/19 00:41 08/28/19 00:41 08/28/19 00:41 08/28/19 00:41 Discharge - Discharge Clinical Impression: Elevated blood pressure reading Abdominal pain Qualifiers: Abdominal location: unspecified location Qualified Code(s): R10.9 - Unspecified abdominal pain Condition: Stable Disposition: HOME, SELF-CARE Instructions: Abdominal Pain ([facility]) Additional Instructions: follow up with your primary doctor for ongoing care return to the ED with worsening continue any and all home medications as prescribed Forms: Elevated Blood Pressure [facility]: [facility] [[facility] - Follow up as needed
[2019-08-28 01:40] LABS: APPEARANCE,URINE SLIGHTLY-CLOUDY; BILIRUBIN,URINE NEGATIVE (NEGATIVE); COLOR,URINE YELLOW; GLUCOSE, URINE NEGATIVE (NEGATIVE); KETONES,URINE TRACE mg/dL (NEGATIVE); LEUKOCYTE ESTERASE,URINE NEGATIVE (NEGATIVE); NITRITE,URINE NEGATIVE (NEGATIVE); PROTEIN,URINE 100 mg/dL (NEGATIVE)
[2019-08-28 01:53] LABS: URINE AMPHETAMINES SCREEN NEGATIVE; URINE BARBITURATES SCREEN NEGATIVE; URINE BENZODIAZEPINES SCREEN NEGATIVE; URINE COCAINE SCREEN NEGATIVE; URINE MARIJUANA (THC) SCREEN NEGATIVE; URINE METHADONE SCREEN NEGATIVE; URINE PHENCYCLIDINE SCREEN NEGATIVE
== END 2019-08-28 01:51 | disposition home or self-care (01) ==
LOC: ER 23:57
DX: R10.9 Unspecified abdominal pain (principal); I10 Essential (primary) hypertension; F17.200 Nicotine dependence, unspecified, uncomplicated; Z90.710 Acquired absence of both cervix and uterus; Z98.51 Tubal ligation status
CPT/HCPCS: 80307; 81001; 81025; 99284

== ENCOUNTER 2019-09-01 07:09 | Emergency (ER) | payer OTHER ==
[2019-09-01 07:26] VITALS: BP 164/121
--- NOTE | 2019-09-01 08:20 | RADIOLOGY REPORT (SQ) ---
EXAM DESCRIPTION: CHEST SINGLE VIEW COMPLETED DATE/TIME: 09/01/2019 7:52 am REASON FOR STUDY: HTN COMPARISON: 11/11/2018 EXAM PARAMETERS: NUMBER OF VIEWS: One view. TECHNIQUE: Single frontal radiographic view of the chest acquired. RADIATION DOSE: NA LIMITATIONS: None. FINDINGS: LUNGS AND PLEURA: No opacities, masses or pneumothorax. No pleural effusion. MEDIASTINUM AND HILAR STRUCTURES: No masses. Contour normal. HEART AND VASCULAR STRUCTURES: Cardiomegaly. BONES: No acute findings. HARDWARE: None in the chest. OTHER: No other significant finding. IMPRESSION: Cardiomegaly without acute abnormality of the lungs in AP portable projection. TECHNICAL DOCUMENTATION: JOB ID: [id number] [employer]- All Rights Reserved Reading location - IP/workstation name: [email or web address]
--- NOTE | 2019-09-01 09:24 | ER Document Report ---
Entered by CHARLEE ALARCON SCRIBE 09/01/19 0745 Acting as scribe for:YAMILET DUDLEY MD ED General - General Chief Complaint: Blood Pressure Problem Stated Complaint: BLOOD PRESSURE ISSUES Time Seen by Provider: 09/01/19 07:34 [facility] Care Provider: [facility] [[facility]] - Follow up as needed Mode of Arrival: Ambulatory Information source: Patient Notes: Patient is a 44 year old female that presents to the emergency department today with complaints of elevated blood pressures and anxiety. Patient reports that she moved to [place] from February 2019 through June 2019. Patient states her doctor there "took her off of her blood pressure medicine because it was lowering her blood pressure". Patient states she moved back here in June and has [facility] with the [facility] here but has not yet seen the [facility] regarding her concerns about her blood pressure or her anxiety. Patient has been on Risperdal in the past but states she is currently not taking any medications. TRAVEL OUTSIDE OF THE [place] IN LAST 30 DAYS: No - Related Data Allergies/Adverse Reactions: No Known Allergies Allergy (Verified 06/28/19 21:49) Past Medical History - General Information source: Patient - Social History Smoking Status: Current Every Day Smoker Cigarette use (# per day): Yes Chew tobacco use (# tins/day): No Smoking Education Provided: No Frequency of alcohol use: None Drug Abuse: None Family History: None, Reviewed & Not Pertinent Patient has suicidal ideation: No Patient has homicidal ideation: No - Past Medical History Cardiac Medical History: Reports: Hx Hypertension Psychiatric Medical History: Reports: Hx Anxiety, Hx Depression Past Surgical History: Reports: Hx Hysterectomy, Hx Tubal Ligation - Immunizations Immunizations up to date: Yes Hx Diphtheria, Pertussis, Tetanus Vaccination: No Review of Systems - Review of Systems Constitutional: No symptoms reported EENT: No symptoms reported Cardiovascular: See HPI, Other - elevated blood pressures Respiratory: No symptoms reported Gastrointestinal: No symptoms reported Genitourinary: No symptoms reported Female Genitourinary: No symptoms reported Musculoskeletal: No symptoms reported Skin: No symptoms reported Hematologic/Lymphatic: No symptoms reported Neurological/Psychological: See HPI, Anxiety -: Yes All other systems reviewed and negative Physical Exam - Vital signs Vitals: Temp Pulse Resp BP Pulse Ox 98.3 F 78 20 164/121 H 100 09/01/19 07:23 09/01/19 07:23 09/01/19 07:23 09/01/19 07:23 09/01/19 07:23 - Notes Notes: Physical Exam: General: Alert, appears well. HEENT: Normocephalic. Atraumatic. PERRL. Extraocular movements intact. Oropharynx clear. Neck: Supple. Non-tender. Respiratory: No respiratory distress. Clear and equal breath sounds bilaterally. Cardiovascular: Regular rate and rhythm. Abdominal: Normal Inspection. Non-tender. No distension. Normal Bowel Sounds. Back: No gross abnormalities. Extremities: Moves all four extremities. Upper extremities: Normal inspection. Normal ROM. Lower extremities: Normal inspection. No edema. Normal ROM. Neurological: Normal cognition. AAOx4. Normal speech. Psychological: Normal affect. Normal Mood. Skin: Warm. Dry. Normal color. Course - Re-evaluation Re-evalutation: 09/01/19 09:26 The nurse came to tell me that the patient had signed out AMA while I was involved with the patient having an acute STEMI. I did not get a chance to speak with the patient before she left. - Vital Signs Vital signs: Temp Pulse Resp BP Pulse Ox 98.3 F 78 20 164/121 H 100 09/01/19 07:23 09/01/19 07:23 09/01/19 07:23 09/01/19 07:23 09/01/19 07:23 - EKG Interpretation by Me EKG shows normal: Sinus rhythm, Proctor, ST-T Waves. abnormal: Intervals - Borderline prolonged QT interval, QRS Complexes - Borderline R wave progression in the anterior leads Rate: Normal - 72 Rhythm: NSR Proctor/QRS: Left axis deviation When compared to previous EKG there are: No significant change Discharge - Discharge Clinical Impression: Elevated blood pressure reading, Anxiety Disposition: AGAINST MEDICAL ADVICE [facility]errals: [facility] [Primary [facility]] - Follow up as needed Scribe Attestation: 09/01/19 07:50 I personally performed the services described in the documentation, reviewed and edited the documentation which was dictated to the scribe in my presence, and it accurately records my words and actions. I personally performed the services described in the documentation, reviewed and edited the documentation which was dictated to the scribe in my presence, and it accurately records my words and actions.
--- NOTE | 2019-09-03 00:27 | EKG REPORT ---
SEVERITY:- BORDERLINE ECG - SINUS RHYTHM BORDERLINE LEFT AXIS DEVIATION BORDERLINE R WAVE PROGRESSION, ANTERIOR LEADS BORDERLINE PROLONGED QT INTERVAL : Confirmed by: Jose Juan Crouch 03-Sep-2019 00:26:17
== END 2019-09-01 08:27 | disposition left against medical advice (07) ==
LOC: ER 07:09
DX: I10 Essential (primary) hypertension (principal); F41.9 Anxiety disorder, unspecified; F17.210 Nicotine dependence, cigarettes, uncomplicated; R94.31 Abnormal electrocardiogram [ECG] [EKG]; Z53.20 Procedure and treatment not carried out because of patient's decision for unspecified reasons
CPT/HCPCS: 71045; 93005; 93010; 99284

== ENCOUNTER 2019-09-01 12:51 | Emergency (ER) | payer OTHER | END 2019-09-01 13:00 | disposition left against medical advice (07) | LOC: ER 12:51 | DX: Z53.21 Procedure and treatment not carried out due to patient leaving prior to being seen by health care provider (principal) ==

== ENCOUNTER 2019-09-07 22:14 | Emergency (ER) | payer OTHER ==
[2019-09-07 22:23] VITALS: BP 189/128
== END 2019-09-08 00:15 | disposition left against medical advice (07) ==
LOC: ER 22:14
DX: Z53.21 Procedure and treatment not carried out due to patient leaving prior to being seen by health care provider (principal)

== ENCOUNTER 2019-09-08 02:01 | Emergency (ER) | payer OTHER ==
[2019-09-08 02:18] VITALS: BP 148/96
== END 2019-09-08 09:00 | disposition left against medical advice (07) ==
LOC: ER 02:01
DX: Z53.21 Procedure and treatment not carried out due to patient leaving prior to being seen by health care provider (principal)

== ENCOUNTER 2019-09-10 18:52 | Emergency (ER) | payer OTHER ==
[2019-09-10] MEDS ORDERED: ASPIRIN 81 MG TABLET, CHEWABLE PO ONE (19:18)
--- NOTE | 2019-09-10 19:19 | ER Document Report ---
ED Medical Screen (RME) - General Chief Complaint: Psych Problem Stated Complaint: PSYCH EVAL Time Seen by Provider: 09/10/19 19:15 Primary Care Provider: CARLY,MIHAELA [Primary Care Provider] - Follow up as needed Information source: Patient Notes: Patient presents complaining of anxiety and depression for the past 10 years that she feels is worsening recently. Patient denies any specific stressors. Patient with poor eye contact. Patient not very forthcoming with interview. Patient denies any suicidal homicidal ideation. Patient reported to nurse that she was having some left-sided chest pain. I have greeted and performed a rapid initial assessment of this patient. A comprehensive ED assessment and evaluation of the patient, analysis of test results and completion of the medical decision making process will be conducted by additional ED providers. TRAVEL OUTSIDE OF THE [place] IN LAST 30 DAYS: No - Related Data Allergies/Adverse Reactions: No Known Allergies Allergy (Verified 06/28/19 21:49) Past Medical History - Social History Chew tobacco use (# tins/day): No Frequency of alcohol use: None Drug Abuse: None - Past Medical History Cardiac Medical History: Reports: Hx Hypertension Renal/ Medical History: Denies: Hx Peritoneal Dialysis Psychiatric Medical History: Reports: Hx Anxiety, Hx Depression Past Surgical History: Reports: Hx Hysterectomy, Hx Tubal Ligation - Immunizations Immunizations up to date: Yes Hx Diphtheria, Pertussis, Tetanus Vaccination: No Physical Exam - Vital signs Vitals: Temp Pulse Resp BP Pulse Ox 98.9 F 81 16 164/98 H 99 09/10/19 18:59 09/10/19 18:59 09/10/19 18:59 09/10/19 18:59 09/10/19 18:59 - Psychological Associated symptoms: Depressed, Flat affect Course - Vital Signs Vital signs: Temp Pulse Resp BP Pulse Ox 98.9 F 81 16 164/98 H 99 09/10/19 18:59 09/10/19 18:59 09/10/19 18:59 09/10/19 18:59 09/10/19 18:59 Doctor's Discharge - Discharge [facility] - Follow up as needed
--- NOTE | 2019-09-10 19:54 | ER Document Report ---
ED Psych Disorder / Suicide - General Chief Complaint: Psych Problem Stated Complaint: PSYCH EVAL Time Seen by Provider: 09/10/19 19:15 Primary Care Provider: MIHAELA CARROLL [NO LOCAL MD] - Follow up as needed Notes: Patient is a 44-year-old female presents to the emergency department for psychiatric evaluation. Patient voices she feels very anxious. Patient will not let me speak. Does start raising her voice and appears manic. I have attempted to ask if she is suicidal. Patient voices that if she becomes suicida l it is our fault, meaning this emergency department staff. I have been unable to assess the patient or ask if she is homicidal because she will not let me speak. She does appear manic at this time. I will place her under IVC paperwork at this time as we do not have psychiatric evaluation currently in the emergency department. She does have her cell phone on her and she is recording everything from the start of our conversation. Pt. voices she is trying to "protect herself." Pt seems very paranoid. Pt. told research staff member in triage she had CP but will not answer any questions I am asking her. TRAVEL OUTSIDE OF THE [place] IN LAST 30 DAYS: No - Related Data Allergies/Adverse Reactions: No Known Allergies Allergy (Verified 06/28/19 21:49) Past Medical History - General Information source: Patient - Social History Smoking Status: Current Some Day Smoker Chew tobacco use (# tins/day): No Frequency of alcohol use: None Drug Abuse: None Family History: None, Reviewed & Not Pertinent Patient has suicidal ideation: No Patient has homicidal ideation: No - Past Medical History Cardiac Medical History: Reports: Hx Hypertension Renal/ Medical History: Denies: Hx Peritoneal Dialysis Psychiatric Medical History: Reports: Hx Anxiety, Hx Depression Past Surgical History: Reports: Hx Hysterectomy, Hx Tubal Ligation - Immunizations Immunizations up to date: Yes Hx Diphtheria, Pertussis, Tetanus Vaccination: No Review of Systems - Review of Systems -: Yes ROS unobtainable due to patient's medical condition Physical Exam - Vital signs Vitals: Temp Pulse Resp BP Pulse Ox 98.9 F 81 16 164/98 H 99 09/10/19 18:59 09/10/19 18:59 09/10/19 18:59 09/10/19 18:59 09/10/19 18:59 - Notes Notes: Pt. will not let me touch her: will attempt to reassess as the night goes on. GENERAL: Alert, will not make eye contact HEAD: Normocephalic EYES: Pupils equal, round, Extraocular movements intact. ENT: Oral mucosa moist, tongue midline. NECK: Full range of motion. EXTREMITIES: Moves all 4 extremities spontaneously. NEUROLOGICAL: Normal speech. PSYCH: Manic and paranoid. SKIN: No obvious rashes or lesions noted on exposed skin. Course - Re-evaluation Re-evalutation: 09/10/19 23:39 Patient is sleeping at this time, easily arousable to verbal stimuli. I am able to listen to the patient's heart and lungs at this time. I then asked her if she is still having any chest pain. Patient voices "I was never having chest pain." Initial troponin negative, waiting on repeat troponin. Still awaiting urinalysis. Otherwise patient will be stable for psychiatric evaluation. 09/11/19 00:53 Laboratory 09/10/19 09/10/19 09/10/19 20:15 20:15 20:15 WBC 6.4 RBC 4.78 Hgb 13.4 Hct 41.3 MCV 86 MCH 28.1 MCHC 32.6 RDW 14.2 H Plt Count 306 Lymph % (Auto) 41.0 [place] % (Auto) 4.8 Eos % (Auto) 3.3 Baso % (Auto) 0.9 Absolute Neuts (auto) 3.2 Absolute Lymphs (auto) 2.6 Absolute Monos (auto) 0.3 Absolute Eos (auto) 0.2 Absolute Basos (auto) 0.1 Seg Neutrophils % 50.0 Sodium 142.3 Potassium 3.6 Chloride 109 H Carbon Dioxide 25 Anion Gap 8 BUN 12 Creatinine 0.83 Est GFR ( Amer) > 60 Est GFR (MDRD) Non-Af > 60 Glucose 89 Calcium 9.2 Total Bilirubin 0.3 Direct Bilirubin 0.1 Neonat Total Bilirubin Not Reportable Neonat Direct Bilirubin Not Reportable Neonat Indirect Bili Not Reportable AST 24 ALT 16 Alkaline Phosphatase 45 Troponin I Total Protein 6.9 Albumin 3.8 Serum HCG, Qual NEGATIVE Urine Color Urine Appearance Urine pH Ur Specific [place] Urine Protein Urine Glucose (UA) Urine Ketones Urine Blood Urine Nitrite Urine Bilirubin Urine Urobilinogen Ur Leukocyte Esterase Urine WBC (Auto) Urine RBC (Auto) Urine Bacteria (Auto) Squamous Epi Cells Auto Urine Mucus (Auto) Urine Ascorbic Acid Salicylates 1.1 L Urine Opiates Screen Urine Methadone Screen Acetaminophen < 10 L Ur Barbiturates Screen Ur Phencyclidine Scrn Ur Amphetamines Screen U Benzodiazepines Scrn Urine Cocaine Screen U Marijuana (THC) Screen Serum Alcohol < 10 09/10/19 09/10/19 09/10/19 20:15 23:45 23:45 WBC RBC Hgb Hct MCV MCH MCHC RDW Plt Count Lymph % (Auto) [place] % (Auto) Eos % (Auto) Baso % (Auto) Absolute Neuts (auto) Absolute Lymphs (auto) Absolute Monos (auto) Absolute Eos (auto) Absolute Basos (auto) Seg Neutrophils % Sodium Potassium Chloride Carbon Dioxide Anion Gap BUN Creatinine Est GFR ( Amer) Est GFR (MDRD) Non-Af Glucose Calcium Total Bilirubin Direct Bilirubin Neonat Total Bilirubin Neonat Direct Bilirubin Neonat Indirect Bili AST ALT Alkaline Phosphatase Troponin I < 0.012 < 0.012 Total Protein Albumin Serum HCG, Qual Urine Color ALICIA Urine Appearance CLOUDY Urine pH 5.0 Ur Specific [place] 1.033 Urine Protein 30 H Urine Glucose (UA) NEGATIVE Urine Ketones TRACE H Urine Blood SMALL H Urine Nitrite NEGATIVE Urine Bilirubin NEGATIVE Urine Urobilinogen 2.0 H Ur Leukocyte Esterase NEGATIVE Urine WBC (Auto) 2 Urine RBC (Auto) 7 Urine Bacteria (Auto) TRACE Squamous Epi Cells Auto 20 Urine Mucus (Auto) MANY Urine Ascorbic Acid NEGATIVE Salicylates Urine Opiates Screen Urine Methadone Screen Acetaminophen Ur Barbiturates Screen Ur Phencyclidine Scrn Ur Amphetamines Screen U Benzodiazepines Scrn Urine Cocaine Screen U Marijuana (THC) Screen Serum Alcohol 09/10/19 23:45 WBC RBC Hgb Hct MCV MCH MCHC RDW Plt Count Lymph % (Auto) [place] % (Auto) Eos % (Auto) Baso % (Auto) Absolute Neuts (auto) Absolute Lymphs (auto) Absolute Monos (auto) Absolute Eos (auto) Absolute Basos (auto) Seg Neutrophils % Sodium Potassium Chloride Carbon Dioxide Anion Gap BUN Creatinine Est GFR ( Amer) Est GFR (MDRD) Non-Af Glucose Calcium Total Bilirubin Direct Bilirubin Neonat Total Bilirubin Neonat Direct Bilirubin Neonat Indirect Bili AST ALT Alkaline Phosphatase Troponin I Total Protein Albumin Serum HCG, Qual Urine Color Urine Appearance Urine pH Ur Specific [place] Urine Protein Urine Glucose (UA) Urine Ketones Urine Blood Urine Nitrite Urine Bilirubin Urine Urobilinogen Ur Leukocyte Esterase Urine WBC (Auto) Urine RBC (Auto) Urine Bacteria (Auto) Squamous Epi Cells Auto Urine Mucus (Auto) Urine Ascorbic Acid Salicylates Urine Opiates Screen NEGATIVE Urine Methadone Screen NEGATIVE Acetaminophen Ur Barbiturates Screen NEGATIVE Ur Phencyclidine Scrn NEGATIVE Ur Amphetamines Screen NEGATIVE U Benzodiazepines Scrn NEGATIVE Urine Cocaine Screen NEGATIVE U Marijuana (THC) Screen NEGATIVE Serum Alcohol Negative delta troponins in the emergency department. Patient cleared for psychiatric evaluation. Continues to appear to be sleeping in NAD. - Vital Signs Vital signs: Temp Pulse Resp BP Pulse Ox 98.9 F 81 16 164/98 H 99 09/10/19 18:59 09/10/19 18:59 09/10/19 18:59 09/10/19 18:59 09/10/19 18:59 - Laboratory Result Diagrams: 09/10/19 20:15 09/10/19 20:15 Laboratory results interpreted by me: 09/10/19 09/10/19 09/10/19 20:15 20:15 23:45 RDW 14.2 H Chloride 109 H Urine Protein 30 H Urine Ketones TRACE H Urine Blood SMALL H Urine Urobilinogen 2.0 H Salicylates 1.1 L Acetaminophen < 10 L Discharge - Discharge Clinical Impression: Paranoid, Anxious mood Disposition: PSYCH HOSP/UNIT [facility] [NO [facility]AL MD] - Follow up as needed
[2019-09-10 20:31] LABS: ABSOLUTE BASOPHILS # (AUTO) 0.1 10^3/uL (0.0-0.2); ABSOLUTE EOSINOPHILS # (AUTO) 0.2 10^3/uL (0.0-0.6); ABSOLUTE LYMPHOCYTES (AUTO) 2.6 10^3/uL (0.5-4.7); ABSOLUTE MONOCYTES (AUTO) 0.3 10^3/uL (0.1-1.4); ABSOLUTE NEUT (AUTO) 3.2 10^3/uL (1.7-8.2); BASOPHILS % (AUTO) 0.9 % (0-2); EOSINOPHILS % (AUTO) 3.3 % (0-6); HEMATOCRIT 41.3 % (36.0-47.0); HEMOGLOBIN 13.4 g/dL (12.0-15.5); MEAN CORPUSCULAR HEMOGLOBIN 28.1 pg (27.0-33.4); MEAN CORPUSCULAR HGB CONC 32.6 g/dL (32.0-36.0); MEAN CORPUSCULAR VOLUME 86 fl (80-97); MONOCYTES % (AUTO) 4.8 % (3-13); PLATELET COUNT 306 10^3/uL (150-450); RED BLOOD COUNT 4.78 10^6/uL (3.72-5.28); RED CELL DISTRIBUTION WIDTH 14.2 % (11.5-14.0); TOTAL CELLS COUNTED % (AUTO) 100 %; WHITE BLOOD COUNT 6.4 10^3/uL (4.0-10.5)
[2019-09-10 20:47] LABS: ALBUMIN 3.8 g/dL (3.5-5.0); ALKALINE PHOSPHATASE 45 U/L (38-126); ANION GAP 8 (5-19); ASPARTATE AMINO TRANSFERASE 24 U/L (14-36); BILIRUBIN,DIRECT 0.1 mg/dL (0.0-0.4); BILIRUBIN,TOTAL 0.3 mg/dL (0.2-1.3); BLOOD UREA NITROGEN 12 mg/dL (7-20); CALCIUM 9.2 mg/dL (8.4-10.2); CARBON DIOXIDE 25 mmol/L (22-30); CHLORIDE 109 mmol/L (98-107); GLUCOSE 89 mg/dL (75-110); POTASSIUM 3.6 mmol/L (3.6-5.0); SALICYLATE 1.1 mg/dL (2.0-20.0); TOTAL PROTEIN 6.9 g/dL (6.3-8.2)
[2019-09-10 20:48] LABS: ACETAMINOPHEN < 10 ug/mL (10-30); ALCOHOL < 10 mg/dL (NONE DETECTED)
--- NOTE | 2019-09-10 22:55 | EKG REPORT ---
SEVERITY:- ABNORMAL ECG - SINUS RHYTHM BORDERLINE LEFT AXIS DEVIATION BORDERLINE T WAVE ABNORMALITIES : Confirmed by: Varsha Eng MD 10-Sep-2019 22:54:30
[2019-09-11 00:36] LABS: APPEARANCE,URINE CLOUDY; BILIRUBIN,URINE NEGATIVE (NEGATIVE); COLOR,URINE AMBER; GLUCOSE, URINE NEGATIVE (NEGATIVE); KETONES,URINE TRACE mg/dL (NEGATIVE); LEUKOCYTE ESTERASE,URINE NEGATIVE (NEGATIVE); NITRITE,URINE NEGATIVE (NEGATIVE); PROTEIN,URINE 30 mg/dL (NEGATIVE); URINE SPECIFIC GRAVITY 1.033
[2019-09-11 00:48] LABS: URINE AMPHETAMINES SCREEN NEGATIVE; URINE BARBITURATES SCREEN NEGATIVE; URINE BENZODIAZEPINES SCREEN NEGATIVE; URINE COCAINE SCREEN NEGATIVE; URINE MARIJUANA (THC) SCREEN NEGATIVE; URINE METHADONE SCREEN NEGATIVE; URINE PHENCYCLIDINE SCREEN NEGATIVE
--- NOTE | 2019-09-11 09:55 | ER Document Report ---
Doctor's Note Notes: 09/11/19 09:54 44-year-old female presented to the emergency department with history of bipolar. Upon arrival she was manic phase hearing voices. Patient is calm pleasant at this time. Denies suicidal homicidal ideations. Reports that she wishes to be discharged that she can go find alf. [facility] also [facility] PHYSICAL EXAMINATION: GENERAL: Well-appearing and in no acute distress HEAD: Atraumatic, normocephalic. EYES: Pupils equal round extraocular movements intact, sclera anicteric, c onjunctiva are normal. ENT: nares patent, Moist mucous membranes. NECK: Normal range of motion, supple without lymphadenopathy LUNGS: RR even unlabored HEART: Regular rate ABDOMEN: denies pain EXTREMITIES: Normal range of motion, NEUROLOGICAL: Cranial nerves grossly intact. PSYCH: Normal mood, normal affect. SKIN: Warm, Dry, normal turgor, no rashes or lesions noted Patient was discharged after she had a shower. Calm no distress. Dictation of this chart was performed using voice recognition software; therefore, there may be some unintended grammatical errors.
[2019-09-11 10:53] VITALS: BP 181/91
== END 2019-09-11 10:53 | disposition home or self-care (01) ==
LOC: ER 18:52
DX: F41.9 Anxiety disorder, unspecified (principal); F60.0 Paranoid personality disorder; F32.9 Major depressive disorder, single episode, unspecified; F41.1 Generalized anxiety disorder; I10 Essential (primary) hypertension; F17.200 Nicotine dependence, unspecified, uncomplicated; Z59.0 Homelessness; Z90.710 Acquired absence of both cervix and uterus
CPT/HCPCS: 36415; 80053; 80307; 81001; 84484; 84703; 85025; 93005; 93010; 99284

== ENCOUNTER 2019-10-07 19:34 | Emergency (ER) | payer OTHER ==
[2019-10-07 20:23] VITALS: BP 148/84
--- NOTE | 2019-10-07 20:23 | ER Document Report ---
ED Medical Screen (RME) - General Chief Complaint: Psych Problem Stated Complaint: PSYCH EVAL Time Seen by Provider: 10/07/19 20:15 Mode of Arrival: Ambulatory Information source: Patient Notes: 44-year-old female presented to ED for complaint of elevated blood pressure and anxiety. She states the anxiety makes her blood pressure go higher in the higher blood pressure makes her anxiety go worse. She denies any suicidal or homicidal thoughts at this time. She states she is mostly in her concerned of her anxiety and her blood pressure. She is alert oriented respirations regular nonlabored speaking in full sentences. She states she does smoke 10 cigarettes a day does not drink alcohol or use any illicit drugs. She states she is homeless and does not have a job at this time. She states she normally goes to the [place] but has not been going this time since she is done in [place]. She states she did not make it in time to the homeless intermediate and lately they have been for when she tries to go. The blood pressure was 172/109 with the machine but when I checked manually it was 148/84. I have greeted and performed a rapid initial assessment of this patient. A comprehensive ED assessment and evaluation of the patient, analysis of test results and completion of medical decision making process will be conducted by an additional ED providers. TRAVEL OUTSIDE OF THE [place] IN LAST 30 DAYS: No - Related Data Allergies/Adverse Reactions: No Known Allergies Allergy (Verified 06/28/19 21:49) Past Medical History - Past Medical History Cardiac Medical History: Reports: Hx Hypertension Renal/ Medical History: Denies: Hx Peritoneal Dialysis Psychiatric Medical History: Reports: Hx Anxiety, Hx Depression Past Surgical History: Reports: Hx Hysterectomy, Hx Tubal Ligation - Immunizations Immunizations up to date: Yes Hx Diphtheria, Pertussis, Tetanus Vaccination: No
--- NOTE | 2019-10-07 21:01 | ER Document Report ---
ED General - General Chief Complaint: Anxiety Stated Complaint: PSYCH EVAL Time Seen by Provider: 10/07/19 20:15 Mode of Arrival: Ambulatory Notes: 44-year-old female with history of anxiety and depression presents emergency department with reports of increased anxiety. She reports she is homeless at this time. She reports she does have family in the area, a mother and a daughter and [id number]. She reports she had a disagreement with the mother says she cannot go there. She reports she does not want to bother the [id number]. She reports she has been staying in homeless shelters in any where she can. Patient is very calm. She denies suicidal or homicidal ideations. She denies visual and auditory hallucinations. Patient reports she has been seen many times for anxiety. She reports when her anxiety goes up her blood pressure goes up. She does not like to take medications because when her anxiety goes away her blood pressure can drop very low. Patient would like to talk to mental health in the morning. No other complaints such as fever vomiting diarrhea. Patient does report some sinus congestion reports she received her flu shot last week from some clinic. TRAVEL OUTSIDE OF THE [place] IN LAST 30 DAYS: No - HPI Onset: Other Onset/Duration: Persistent Quality of pain: No pain Associated symptoms: None Exacerbated by: Denies Relieved by: Denies - Related Data Allergies/Adverse Reactions: No Known Allergies Allergy (Verified 06/28/19 21:49) Past Medical History - General Information source: Patient - Social History Smoking Status: Current Every Day Smoker Chew tobacco use (# tins/day): No Frequency of alcohol use: None Drug Abuse: None Lives with: Homeless Family History: None, Reviewed & Not Pertinent Patient has suicidal ideation: No Patient has homicidal ideation: No - Past Medical History Cardiac Medical History: Reports: Hx Hypertension Renal/ Medical History: Denies: Hx Peritoneal Dialysis Psychiatric Medical History: Reports: Hx Anxiety, Hx Depression Past Surgical History: Reports: Hx Hysterectomy, Hx Tubal Ligation - Immunizations Immunizations up to date: Yes Hx Diphtheria, Pertussis, Tetanus Vaccination: No Review of Systems - Review of Systems Notes: Review HPI for review of systems., All other systems negative Physical Exam - Vital signs Vitals: Temp Pulse Resp BP Pulse Ox 98.4 F 98 20 148/84 H 97 10/07/19 20:21 10/07/19 20:21 11/23/19 20:21 10/07/19 20:21 10/07/19 20:21 - Notes Notes: PHYSICAL EXAMINATION: GENERAL: Well-appearing and in no acute distress HEAD: Atraumatic, normocephalic. EYES: Pupils equal round and reactive to light, extraocular movements intact, sclera anicteric, conjunctiva are normal. ENT: nares patent, oropharynx clear without exudates. Moist mucous membranes. NECK: Normal range of motion, supple without lymphadenopathy LUNGS: CTAB and equal. No wheezes rales or rhonchi. HEART: Regular rate and rhythm without murmurs ABDOMEN: Soft, no tenderness. No guarding, no rebound EXTREMITIES: Normal range of motion NEUROLOGICAL: Cranial nerves grossly intact. PSYCH: Normal mood, normal affect. SKIN: Warm, Dry, normal turgor, no rashes or lesions noted Course - Re-evaluation Re-evalutation: 10/07/19 21:09 44-year-old female that presents emergency department with complaints of anxiety. She reports when her anxiety goes up her blood pressure goes up. Blood pressure on arrival was 148/84. Patient denies suicidal or homicidal ideations. She denies auditory or visual hallucinations. She reports she has quit smoking marijuana. Patient reports she is gone to several places for assistance but nothing is working. Patient would like to speak with mental health to develop a plan of care on outpatient treatment. Patient is not suicidal or homicidal. Patient is calm. She was instructed on plan for discharge. Patient became irritated. Reports she will just check right back again. Consulted Dr. Oden he agreed with plan to discharge. Dictation of this chart was performed using voice recognition software; therefore, there may be some unintended grammatical errors. - Vital Signs Vital signs: Temp Pulse Resp BP Pulse Ox 98.4 F 98 20 148/84 H 97 10/07/19 20:21 10/07/19 20:21 10/07/19 20:21 10/07/19 20:21 10/07/19 20:21 - EKG Interpretation by Me EKG shows normal: Sinus rhythm Rate: Normal Rhythm: NSR Additional EKG results interpreted by me: 10/07/19 22:[address] elevation Discharge - Discharge Clinical Impression: Anxiety Condition: Stable Disposition: HOME, SELF-CARE Instructions: Anxiety ([facility]) Additional Instructions: *You have been evaluated for anxiety *Follow up with a mental health provider within 1 week *Return to ED for worsening condition, changes, needs Forms: Elevated Blood Pressure
--- NOTE | 2019-10-08 17:14 | EKG REPORT ---
SEVERITY:- BORDERLINE ECG - SINUS RHYTHM BORDERLINE T WAVE ABNORMALITIES : Confirmed by: Nigel Garcia MD 08-Oct-2019 17:13:26
== END 2019-10-07 22:29 | disposition home or self-care (01) ==
LOC: ER 19:34
DX: F41.9 Anxiety disorder, unspecified (principal); F32.9 Major depressive disorder, single episode, unspecified; F17.200 Nicotine dependence, unspecified, uncomplicated; I10 Essential (primary) hypertension; Z98.51 Tubal ligation status; Z90.710 Acquired absence of both cervix and uterus
CPT/HCPCS: 93005; 93010; 99283

== ENCOUNTER 2019-10-26 20:59 | Emergency (ER) | payer OTHER ==
--- NOTE | 2019-10-26 21:27 | ER Document Report ---
ED Medical Screen (RME) - General Stated Complaint: ANXIETY ATTACK Time Seen by Provider: 10/26/19 21:25 TRAVEL OUTSIDE OF THE [place] IN LAST 30 DAYS: No - HPI Notes: 10/26/19 21:25 Patient is a 44-year-old female with a history of anxiety who presents by EMS for increased anxiety and irritability. Patient is not currently on any medicines. Patient is homeless. She has been able to eat and drink without difficulty. She has not had any SI or HI. No fever, URI, chest pain, shortness of breath, abdominal pain, nausea/vomiting. She does not want any medicines at this time. I have treated and performed a rapid initial assessment of this patient. A comprehensive ED assessment and evaluation of the patient, analysis of test results and completion of medical decision making process will be conducted by additional ED providers. PHYSICAL EXAMINATION: GENERAL: Well-appearing, well-nourished and in no acute distress. A&Ox4. Answers questions appropriately. - Related Data Allergies/Adverse Reactions: No Known Allergies Allergy (Verified 06/28/19 21:49) Past Medical History - Past Medical History Cardiac Medical History: Reports: Hx Hypertension Renal/ Medical History: Denies: Hx Peritoneal Dialysis Psychiatric Medical History: Reports: Hx Anxiety, Hx Depression Past Surgical History: Reports: Hx Hysterectomy, Hx Tubal Ligation - Immunizations Immunizations up to date: Yes Hx Diphtheria, Pertussis, Tetanus Vaccination: No
[2019-10-26 21:31] VITALS: BP 177/110
[2019-10-26] MEDS ORDERED: ASPIRIN 325 MG TABLET PO ONE (23:42)
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
== END 2019-10-27 00:26 | disposition home or self-care (01) ==
LOC: ER 20:59
DX: F41.9 Anxiety disorder, unspecified (principal); G44.209 Tension-type headache, unspecified, not intractable; F17.200 Nicotine dependence, unspecified, uncomplicated; I10 Essential (primary) hypertension; Z59.0 Homelessness
CPT/HCPCS: 99283

== ENCOUNTER 2019-10-28 08:13 | Emergency (ER) | payer OTHER ==
[2019-10-28 08:22] VITALS: BP 175/110
== END 2019-10-28 08:38 | disposition left against medical advice (07) ==
LOC: ER 08:13
DX: Z53.21 Procedure and treatment not carried out due to patient leaving prior to being seen by health care provider (principal)

== ENCOUNTER 2019-10-28 14:32 | Emergency (ER) | payer OTHER ==
[2019-10-28 14:57] VITALS: BP 194/115
--- NOTE | 2019-10-28 15:01 | ER Document Report ---
ED Medical Screen (RME) - General Chief Complaint: Anxiety Stated Complaint: ANXIETY Time Seen by Provider: 10/28/19 14:49 Primary Care Provider: MIHAELA CARROLL [Primary Care Provider] - Follow up as needed Mode of Arrival: Ambulatory Information source: Patient Notes: This 44-year-old patient with history of anxiety high blood pressure mental health issues presents today with complaint and concerns over her high blood pressure. She also reports that she is waiting from somebody from [facility] to call her back for treatment for psych issues. Patient wants medical clearance but does not know where she is going to be placed. Patient is homeless and gets irritated when this is mentioned. She denies suicidal or homicidal ideations. I have greeted and performed a rapid initial assessment of this patient. A comprehensive ED assessment and evaluation of the patient, analysis of test results and completion of the medical decision making process will be conducted by additional ED providers. Dictation of this chart was performed using voice recognition software; therefore, there may be some unintended grammatical errors. TRAVEL OUTSIDE OF THE [place] IN LAST 30 DAYS: No - Related Data Allergies/Adverse Reactions: No Known Allergies Allergy (Verified 10/28/19 14:44) Past Medical History - Past Medical History Cardiac Medical History: Reports: Hx Hypertension Renal/ Medical History: Denies: Hx Peritoneal Dialysis Psychiatric Medical History: Reports: Hx Anxiety, Hx Depression Past Surgical History: Reports: Hx Hysterectomy, Hx Tubal Ligation - Immunizations Immunizations up to date: Yes Hx Diphtheria, Pertussis, Tetanus Vaccination: No Doctor's Discharge - Discharge Referrals: [facility] [Primary Care Provider] - Follow up as needed
== END 2019-10-28 15:30 | disposition left against medical advice (07) ==
LOC: ER 14:32
DX: I10 Essential (primary) hypertension (principal); Z59.0 Homelessness; Z53.20 Procedure and treatment not carried out because of patient's decision for unspecified reasons
CPT/HCPCS: 99281

== ENCOUNTER 2019-10-29 08:25 | Emergency (ER) | payer OTHER ==
[2019-10-29 08:32] VITALS: BP 149/99
== END 2019-10-29 08:55 | disposition left against medical advice (07) ==
LOC: ER 08:25
DX: Z53.21 Procedure and treatment not carried out due to patient leaving prior to being seen by health care provider (principal); R51 Headache; F41.9 Anxiety disorder, unspecified

== ENCOUNTER 2019-11-02 17:45 | Emergency (ER) | payer OTHER ==
--- NOTE | 2019-11-02 19:00 | ER Document Report ---
ED Medical Screen (RME) - General Chief Complaint: High Blood Pressure Stated Complaint: ANXIOUS Time Seen by Provider: 11/02/19 18:44 Primary Care Provider: CARLY,MIHAELA [Primary Care Provider] - Follow up as needed TRAVEL OUTSIDE OF THE [place] IN LAST 30 DAYS: No - HPI Notes: 11/02/19 18:56 44-year-old female presents the emergency room for complaints of anxiety which creates her blood pressure to be elevated, states this only happens when she has anxiety that her blood pressure is elevated. Patient states she has been seen by her psychiatrist who "took her off all my meds". Patient denies any medications to manage her anxiety. She states people is what makes her anxious. Patient would like a mental health evaluation today. denies any cp, sob I have greeted and performed a rapid initial assessment of this patient. A comprehensive ED assessment and evaluation of the patient, analysis of test results and completion of the medical decision making process will be conducted by additional ED providers. PHYSICAL EXAMINATION: GENERAL: Well-appearing, well-nourished and in no acute distress. HEAD: Atraumatic, normocephalic. EYES: Pupils equal round extraocular movements intact, conjunctiva are normal. NECK: Normal range of motion CV: s1, s2 regular LUNGS: No respiratory distress Musculoskeletal: Normal range of motion NEUROLOGICAL: reports anxiety. SKIN: Warm, Dry, normal turgor, no rashes or lesions noted. - Related Data Allergies/Adverse Reactions: No Known Allergies Allergy (Verified 10/29/19 08:52) Past Medical History - Past Medical History Cardiac Medical History: Reports: Hx Hypertension Renal/ Medical History: Denies: Hx Peritoneal Dialysis Psychiatric Medical History: Reports: Hx Anxiety, Hx Depression Past Surgical History: Reports: Hx Hysterectomy, Hx Tubal Ligation - Immunizations Immunizations up to date: Yes Hx Diphtheria, Pertussis, Tetanus Vaccination: No Physical Exam - Vital signs Vitals: Temp Pulse Resp BP 97.8 F 97 18 177/116 H 11/02/19 17:57 11/02/19 17:57 11/02/19 17:57 11/02/19 17:57 Course - Vital Signs Vital signs: Temp Pulse Resp BP Pulse Ox 97.8 F 97 18 177/116 H 11/02/19 18:45 11/02/19 17:57 11/02/19 18:45 11/02/19 17:57 Doctor's Discharge - Discharge [facility]: [facility] - Follow up as needed
[2019-11-02 21:35] LABS: APPEARANCE,URINE SLIGHTLY-CLOUDY; BILIRUBIN,URINE NEGATIVE (NEGATIVE); COLOR,URINE YELLOW; GLUCOSE, URINE NEGATIVE (NEGATIVE); KETONES,URINE NEGATIVE (NEGATIVE); LEUKOCYTE ESTERASE,URINE NEGATIVE (NEGATIVE); NITRITE,URINE NEGATIVE (NEGATIVE); PROTEIN,URINE 30 mg/dL (NEGATIVE); URINE SPECIFIC GRAVITY 1.028; UROBILINOGEN,URINE NEGATIVE mg/dL (<2.0)
[2019-11-02 21:43] LABS: URINE AMPHETAMINES SCREEN NEGATIVE; URINE BARBITURATES SCREEN NEGATIVE; URINE BENZODIAZEPINES SCREEN NEGATIVE; URINE COCAINE SCREEN NEGATIVE; URINE MARIJUANA (THC) SCREEN NEGATIVE; URINE METHADONE SCREEN NEGATIVE; URINE PHENCYCLIDINE SCREEN NEGATIVE
--- NOTE | 2019-11-02 22:07 | ER Document Report ---
ED General - General Chief Complaint: High Blood Pressure Stated Complaint: ANXIOUS Time Seen by Provider: 11/02/19 18:44 Primary Care Provider: CARLY,MIHAELA [Primary Care Provider] - Follow up as needed Notes: 44-year-old female presents for anxiety which causes elevated blood pressure. Patient denies SI or HI. Patient states she wants to be seen by the psychiatric team. Patient states lately she has been having situations that are causing her anxiety to get worse. Patient also asked about a formal diagnosis of hypertension and states that "they got it wrong." Patient states she was taken off all her psychiatric medications in November. TRAVEL OUTSIDE OF THE [place] IN LAST 30 DAYS: No - Related Data Allergies/Adverse Reactions: No Known Allergies Allergy (Verified 10/29/19 08:52) Past Medical History - Social History Smoking Status: Unknown if Ever Smoked Family History: None, Reviewed & Not Pertinent Patient has suicidal ideation: No Patient has homicidal ideation: No - Past Medical History Cardiac Medical History: Reports: Hx Hypertension Renal/ Medical History: Denies: Hx Peritoneal Dialysis Psychiatric Medical History: Reports: Hx Anxiety, Hx Depression Past Surgical History: Reports: Hx Hysterectomy, Hx Tubal Ligation - Immunizations Immunizations up to date: Yes Hx Diphtheria, Pertussis, Tetanus Vaccination: No Review of Systems - Review of Systems Notes: Constitutional: Negative for fever. HENT: Negative for sore throat. Eyes: Negative for visual changes. Cardiovascular: Negative for chest pain. Respiratory: Negative for shortness of breath. Gastrointestinal: Negative for abdominal pain, vomiting or diarrhea. Genitourinary: Negative for dysuria. Musculoskeletal: Negative for back pain. Skin: Negative for rash. Neurological: Negative for headaches, weakness or numbness. Psych: Positive for anxiety. Negative for SI or HI. 10 point ROS negative except as marked above and in HPI. Physical Exam - Vital signs Vitals: Temp Pulse Resp BP 97.8 F 97 18 177/116 H 11/02/19 17:57 11/02/19 17:57 11/02/19 17:57 11/02/19 17:57 - Notes Notes: GENERAL: Well-appearing, well-nourished and in no acute distress. HEAD: Atraumatic, normocephalic. EYES: Pupils equal round and reactive to light, extraocular movements intact, sclera anicteric, conjunctiva are normal. NECK: Normal range of motion, supple without lymphadenopathy or JVD. LUNGS: Breath sounds clear to auscultation bilaterally and equal. No wheezes rales or rhonchi. HEART: Regular rate and rhythm without murmurs, rubs or gallops. EXTREMITIES: Normal range of motion, no pitting or edema. No clubbing or cyanosis. NEUROLOGICAL: Cranial nerves II through XII grossly intact. Normal speech, normal gait. PSYCH: Normal mood, normal affect. SKIN: Warm, Dry, normal turgor, no rashes or lesions noted. Course - Re-evaluation Re-evalutation: 11/02/19 22:07 This provider has attempted to see the patient 3 times and she is refusing for various reasons. First time was due to community service representative being in room. Second and third time patient is refusing until she is given something to drink. Attempted to ask patient if she would be willing to talk while a drink is being provided to her and she refused. Will go see other patients and will reassess later. 11/02/19 23:04 Patient was finally assessed. Patient has no signs of endorgan damage. Patient is currently medically cleared pending psychiatric evaluation. Patient was offered medications however states she does not want to take any until evaluated by psychiatric team. - Vital Signs Vital signs: Temp Pulse Resp BP Pulse Ox 98.2 F 80 20 170/81 H 100 11/02/19 19:51 11/02/19 19:51 11/02/19 19:51 11/02/19 19:51 11/02/19 19:51 - Laboratory Result Diagrams: 11/02/19 21:53 11/02/19 21:53 Laboratory results interpreted by me: 11/02/19 11/02/19 11/02/19 20:45 21:53 21:53 RDW 14.5 H Albumin 3.4 L Urine Protein 30 H Urine Blood SMALL H Acetaminophen < 10 L Discharge - Discharge Clinical Impression: Anxiety Condition: Stable Disposition: PSYCH HOSP/UNIT [facility]: [facility] [[facility] - Follow up as needed
[2019-11-02 22:09] LABS: ABSOLUTE BASOPHILS # (AUTO) 0.1 10^3/uL (0.0-0.2); ABSOLUTE EOSINOPHILS # (AUTO) 0.4 10^3/uL (0.0-0.6); ABSOLUTE LYMPHOCYTES (AUTO) 3.5 10^3/uL (0.5-4.7); ABSOLUTE MONOCYTES (AUTO) 0.5 10^3/uL (0.1-1.4); ABSOLUTE NEUT (AUTO) 3.5 10^3/uL (1.7-8.2); BASOPHILS % (AUTO) 0.8 % (0-2); EOSINOPHILS % (AUTO) 4.5 % (0-6); HEMATOCRIT 38.8 % (36.0-47.0); LYMPHOCYTES % (AUTO) 44.5 % (13-45); MEAN CORPUSCULAR HEMOGLOBIN 28.6 pg (27.0-33.4); MEAN CORPUSCULAR HGB CONC 33.4 g/dL (32.0-36.0); MEAN CORPUSCULAR VOLUME 86 fl (80-97); MONOCYTES % (AUTO) 5.9 % (3-13); PLATELET COUNT 289 10^3/uL (150-450); RED BLOOD COUNT 4.52 10^6/uL (3.72-5.28); RED CELL DISTRIBUTION WIDTH 14.5 % (11.5-14.0); SEGMENTED NEUTROPHILS % (AUTO) 44.3 % (42-78); TOTAL CELLS COUNTED % (AUTO) 100 %; WHITE BLOOD COUNT 7.9 10^3/uL (4.0-10.5)
[2019-11-02 22:23] LABS: ACETAMINOPHEN < 10 ug/mL (10-30); ALBUMIN 3.4 g/dL (3.5-5.0); ALCOHOL < 10 mg/dL (NONE DETECTED); ALKALINE PHOSPHATASE 65 U/L (38-126); ANION GAP 7 (5-19); ASPARTATE AMINO TRANSFERASE 26 U/L (14-36); BILIRUBIN,DIRECT 0.1 mg/dL (0.0-0.4); BILIRUBIN,TOTAL 0.2 mg/dL (0.2-1.3); BLOOD UREA NITROGEN 13 mg/dL (7-20); CALCIUM 9.2 mg/dL (8.4-10.2); CARBON DIOXIDE 26 mmol/L (22-30); CHLORIDE 105 mmol/L (98-107); GLUCOSE 81 mg/dL (75-110); POTASSIUM 3.6 mmol/L (3.6-5.0); SALICYLATE 2.9 mg/dL (2.0-20.0); TOTAL PROTEIN 6.5 g/dL (6.3-8.2)
--- NOTE | 2019-11-03 09:27 | ER Document Report ---
Doctor's Note Notes: Patient was seen and evaluated by myself with the nurse at the bedside. Patient very angry stating that psychiatric team did not do a full psychiatric evaluation on her. She states that she came here for a full psych eval. Patient is also complaining about not having a medical evaluation. She states we have not done anything for her blood pressure. Unfortunately the patient has been prescribed blood pressure medications but this facility multiple times, she has either not fill them or refused to take them. Patient has been refusing for the last 5 hours to have her blood pressure checked. I did offer to re- prescribe her blood pressure medications, patient is refusing any further treatment from me. She has been cleared medically and by psychiatric team.
--- NOTE | 2019-11-03 10:14 | PSYCHOLOGICAL NOTE ---
Psych Note - Psych Note Date seen by psych provider: 11/03/19 Time seen by psych provider: 07:30 Psych Note: Reason for consult: Anxiety; Patient is requesting a mental health evaluation Patient is a 44 year old female who presents to ED via POV with concerns for anx iety which increases her blood pressure. Patient requests a mental health evaluation. Patient is well known to this ED. Patient did not want the lights on or the door closed. Clinician stated the door had to remain open. 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 Patient request mental health evaluation. Clinician inquired for specifics regarding patient's expectations regarding the mental health evaluation (wanting inpatient; full psyco workup). Patient would not elaborate. Clinician informed patient that the ED was an acute facility, not an outpatient or fdc placement facility with the resources to conduct a mental health evaluation. Patient replied "I've never been talked to like this," and then refused to engage further. Patient requested clinician contact the MD for her records. Clinician replied that hearing from patient herself is part of the process. Patient refused to engage further. Clinician left room. Nursing staff informed clinician of patient's refusal to have her vitals taken. The light was on when clinician entered room. Patient again asked for light to be off and door to remain open. Clinician replied that the light will be cut off as soon as the evaluation is completed. Patient shut light off. Clinician attempted to speak with patient, who stated the nurse "did not need to take my vitals." Clinician informed patient that she is here for treatment and has thus far denied treatment. Patient replied, "I'm hungry; I'm not diabetic but my sugars get low if I don't eat." Clinician made additional attempts to conduct evaluation. Patient refused to engage further. Carrie at the [facility] has been contacted for collateral information. Clinician left message requesting return phone call. There is no observed behavior that suggests patient is responding to internal stimuli. Patient denies current auditory and visual hallucinations. Eye contact is appropriate. Conversational speech is within normal rate, tone, and prosody. Intellectual ability appears to be within average range. Attention and concentration are good. Insight, judgment and impulse control are currently poor. DSM Diagnosis: Per report, anxiety Medication recommendations per [facility] contracted psychiatrist Dr. Giovana VASQUEZ is as follows: NONE Impression/Plan: Patient is cleared from acute psychiatric services. Patient does not meet IVC criteria per [place] GS 122C. Patient is homeless. Patient refuses to engage with clinician. Patient was encouraged follow up with the MD for housing assistance and mental health services. Dr. Nuñez was consulted on the care and management of this patient; attending physician is in agreement with recommendations and disposition.
[2019-11-03 15:55] VITALS: BP 192/92
--- NOTE | 2019-11-03 17:25 | EKG REPORT ---
SEVERITY:- BORDERLINE ECG - SINUS RHYTHM BORDERLINE T WAVE ABNORMALITIES : Confirmed by: Jose Juan Crouch 03-Nov-2019 17:24:28
== END 2019-11-03 13:00 | disposition home or self-care (01) ==
LOC: ER 17:45
DX: F41.9 Anxiety disorder, unspecified (principal); I10 Essential (primary) hypertension; Z90.710 Acquired absence of both cervix and uterus
CPT/HCPCS: 36415; 80053; 80307; 81001; 84443; 85025; 93005; 93010; 96360; 96372; 99285

== ENCOUNTER 2019-11-04 02:28 | Emergency (ER) | payer OTHER ==
[2019-11-04 02:37] VITALS: BP 174/100
== END 2019-11-04 04:00 | disposition left against medical advice (07) ==
LOC: ER 02:28
DX: Z53.21 Procedure and treatment not carried out due to patient leaving prior to being seen by health care provider (principal)

== ENCOUNTER 2019-11-04 05:09 | Emergency (ER) | payer OTHER ==
[2019-11-04 05:18] VITALS: BP 175/117
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
--- NOTE | 2019-11-04 09:28 | EKG REPORT ---
SEVERITY:- BORDERLINE ECG - SINUS RHYTHM BORDERLINE PROLONGED QT INTERVAL : Confirmed by: Jose Juan Crouch 04-Nov-2019 09:28:14
== END 2019-11-04 07:16 | disposition left against medical advice (07) ==
LOC: ER 05:09
DX: Z59.0 Homelessness (principal)
CPT/HCPCS: 93005; 93010

== ENCOUNTER 2019-11-04 07:32 | Emergency (ER) | payer OTHER ==
--- NOTE | 2019-11-04 10:49 | ER Document Report ---
HPI - HPI Pain Level: 3 Context: Patient is a 44-year-old female who has been in this emergency department 9 times in the last 9 days and left without being seen four times. Patient is noncompliant and has been cleared by psychiatric services and when I went into the room she was very argumentative and refused to allow me to perform a medical exam. She said that yes I could perform a medical exam but refused to allow me to listen to her breathing or heart sounds with a stethoscope. Patient is homeless. Patient was medically cleared here 48 hours ago. Patient is being noncompliant with the entire staff and will not provide me with a history and just keeps arguing with me. - NEURO Neurology: REPORTS: Headache - REPRODUCTIVE Reproductive: DENIES: : Past Medical History - Social History Smoking Status: Current Every Day Smoker Chew tobacco use (# tins/day): No Frequency of alcohol use: None Drug Abuse: None Family History: None, Reviewed & Not Pertinent Patient has suicidal ideation: No Patient has homicidal ideation: No - Past Medical History Cardiac Medical History: Reports: Hx Hypertension Renal/ Medical History: Denies: Hx Peritoneal Dialysis Psychiatric Medical History: Reports: Hx Anxiety, Hx Depression - and anxiety Past Surgical History: Reports: Hx Hysterectomy, Hx Tubal Ligation - Immunizations Immunizations up to date: Yes Hx Diphtheria, Pertussis, Tetanus Vaccination: No Vertical Provider Document - CONSTITUTIONAL Notes: PHYSICAL EXAMINATION: Reviewed vital signs and charting by RN GENERAL: Lying on her stomach on the bed with eyes closed HEAD: Normocephalic, atraumatic. EYES: Unable to observe patient refuses physical exam LUNGS: Refuses exam HEART: refUses exam ABDOMEN: Refuses exam EXTREMITIES: Moves all 4 extremities spontaneously. No edema, No cyanosis. PSYCH: Argumentative and not compliant - INFECTION CONTROL TRAVEL OUTSIDE OF THE [place] IN LAST 30 DAYS: No Course - Re-evaluation Re-evalutation: 11/04/19 10:53 I explained to patient that she has been cleared by acute psychiatric services on November 03. Patient would not allow me to examine her. She is homeless and [facility] They state that she has refused treatment, does not get her prescriptions filled, and has called the [facility] crisis hotline on the and for rides across town. Patient is argumentative with me and not allowing me to perform a physical exam although she states that she will allow us to perform a medical exam. I told the patient that she is either leaving AGAINST MEDICAL ADVICE, she will have to elope, or she will have to concede to a full medical exam. 11/04/19 11:45 Patient refused to leave so I went and spoke with her again. She did have her eyes open and she said that she was concerned about her blood pressure and was requesting a dose of her Cozaar. I agreed to that. She then started going off on a tangent and became argumentative stating that she wanted a psych eval and was ambivalent about a medical exam. She is being very manipulative. This patient is again cleared from psychiatric services and states that she is here for a psych eval. When further pressing her she could not provide any complaints other than "I need a psych eval". I did give her a single dose of losartan 25 mg p.o. once and she is stable for discharge. - Vital Signs Vital signs: Temp Pulse Resp BP Pulse Ox 98.5 F 82 16 175/100 H 100 11/04/19 08:08 11/04/19 07:35 11/04/19 08:08 11/04/19 07:35 11/04/19 08:08 Discharge - Discharge Clinical Impression: Anxiety Condition: Stable Disposition: HOME, SELF-CARE Additional Instructions: You were seen here for anxiety. Acute psychiatric services deems you stable for discharge. They stated that the [facility] did give gave you medication recommendations and prescriptions but you refused to fill them. Also, the [facility] crisis hotline is not to be used to call for a ride across [facility], you are abusing the system. Mental health stated that you called the crisis hotline on the and the for this reason. Also, you are missing your [facility] appointments. [facility] [place] to get definitive [facility] services. You stated that you would concede to a medical exam but refused to allow me to place a stethoscope on you or open your eyes. You had lab work in the last 48 hours that was all normal. You are being noncompliant. Again, [facility]. Referrals: [facility] [Primary Care Provider] - Follow up as needed
[2019-11-04 11:16] VITALS: BP 181/102
[2019-11-04] MEDS ORDERED: LOSARTAN POTASSIUM 25 MG TABLET PO ONE (11:44)
== END 2019-11-04 11:52 | disposition home or self-care (01) ==
LOC: ER 07:32
DX: F41.9 Anxiety disorder, unspecified (principal); R51 Headache; Z59.0 Homelessness; F17.200 Nicotine dependence, unspecified, uncomplicated; I10 Essential (primary) hypertension; Z90.710 Acquired absence of both cervix and uterus
CPT/HCPCS: 99283

== ENCOUNTER 2019-11-04 22:11 | Emergency (ER) | payer OTHER ==
--- NOTE | 2019-11-05 00:35 | ER Document Report ---
ED General - General Chief Complaint: High Blood Pressure Stated Complaint: BLOOD PRESSURE CHECK Time Seen by Provider: 11/04/19 23:34 Primary Care Provider: MIHAELA CARROLL [Primary Care Provider] - 11/06/19 Notes: Patient is a 44-year-old female that comes emergency department for chief complaint of elevated blood pressure. When I asked her what brings her in tonight she states she is out of her blood pressure medication and earlier tonight before arrival she felt "an unexplainable sensation in the chest that made me short of breath". She denies shortness of breath now, chest pain, vomiting, fever, dizziness. Past medical history of hypertension and anxiety reportedly, denies medical history otherwise. TRAVEL OUTSIDE OF THE [place] IN LAST 30 DAYS: No - Related Data Allergies/Adverse Reactions: No Known Allergies Allergy (Verified 11/04/19 08:08) Home Medications: losartan-script given earlier today, [facility] not open Past Medical History - General Information source: Patient - Social History Smoking Status: Current Every Day Smoker Frequency of alcohol use: None Drug Abuse: None Lives with: Alone Family History: None, Reviewed & Not Pertinent Patient has suicidal ideation: No Patient has homicidal ideation: No - Past Medical History Cardiac Medical History: Reports: Hx Hypertension Renal/ Medical History: Denies: Hx Peritoneal Dialysis Psychiatric Medical History: Reports: Hx Anxiety, Hx Depression - and anxiety Past Surgical History: Reports: Hx Hysterectomy, Hx Tubal Ligation - Immunizations Immunizations up to date: Yes Hx Diphtheria, Pertussis, Tetanus Vaccination: No Review of Systems - Review of Systems Constitutional: No symptoms reported EENT: No symptoms reported Cardiovascular: See HPI Respiratory: See HPI Gastrointestinal: No symptoms reported Genitourinary: No symptoms reported Female Genitourinary: No symptoms reported Musculoskeletal: No symptoms reported Skin: No symptoms reported Hematologic/Lymphatic: No symptoms reported Neurological/Psychological: No symptoms reported Physical Exam - Vital signs Vitals: Temp Pulse Resp BP Pulse Ox 98.2 F 80 18 159/107 H 97 11/04/19 22:16 11/04/19 22:16 11/04/19 22:16 11/04/19 22:16 11/04/19 22:16 - Notes Notes: GENERAL: Sleeping but easily aroused, no distress HEAD: Normocephalic, atraumatic. EYES: Pupils equal, round, and reactive to light. Extraocular movements intact. ENT: Oral mucosa moist, tongue midline. Oropharynx unremarkable. Airway patent. LUNGS: Clear to auscultation bilaterally, no wheezes, rales, or rhonchi. No respiratory distress. HEART: Regular rate and rhythm. No murmur ABDOMEN: Soft, non-tender. Non-distended. EXTREMITIES: Moves all 4 extremities spontaneously. No edema, normal radial and dorsalis pedis pulses bilaterally. No cyanosis. BACK: no cervical, thoracic, lumbar midline tenderness. No saddle anesthesia, normal distal neurovascular exam. Moves all extremities in full range of motion. NEUROLOGICAL: Alert and oriented x3. Normal speech. Cranial nerves II through XII grossly intact. PSYCH: Slightly flat affect and speaks quietly but does make eye contact and answers questions appropriately SKIN: Warm, dry, normal turgor. No rashes or lesions noted. Course - Re-evaluation Re-evalutation: Patient with very vague nonspecific symptoms reported. No current symptoms. Unremarkable vital signs except mildly elevated blood pressure, she states she has not been compliant with her medications and despite previously being given a prescription she states she does not currently have one. She is requesting another prescription for her blood pressure. She will be provided with this. EKG and chest x-ray without significant change from prior concerning findings. Patient's physical exam is unremarkable. She did cooperate with a physical exam. I did review recent visits, patient has been here 10 times in the past week and a half. Apparently she seeks penitentiary here when it is cold. Patient was asking to remain in the room. I do not feel any additional work-up is indicated based on her lack of current symptoms, nonspecific symptoms reportedly, recent normal work-ups which were extensive, and current presentation. Discussed with Dr. Oden. Patient was discharged with return precautions. - Vital Signs Vital signs: Temp Pulse Resp BP Pulse Ox 98.1 F 64 14 111/67 98 11/05/19 01:39 11/05/19 01:39 11/05/19 01:39 11/05/19 01:39 11/05/19 01:39 - EKG Interpretation by Me Additional EKG results interpreted by me: EKG shows sinus rhythm at a rate of 69, borderline left axis deviation, prolonged QT interval at 523, inverted T wave in lead V3 but no T wave inversions or ST segment changes in consecutive leads. No significant change from prior. Discharge - Discharge Clinical Impression: Essential hypertension, Homelessness Condition: Stable Disposition: HOME, SELF-CARE Additional Instructions: Your evaluation does not show any concerning findings at this time. Fill and take the blood pressure medication as prescribed. [facility]. Return to emergency department for any concerning symptoms including chest pain, difficulty breathing, passing out, fever, or any other concerning symptoms. Prescriptions: Losartan Potassium [Cozaar 25 mg Tablet] 25 mg PO DAILY #30 tablet [facility]: [facility] [Primary Care Provider] - 11/06/19
--- NOTE | 2019-11-05 01:18 | RADIOLOGY REPORT (SQ) ---
EXAM DESCRIPTION: [facility]: XR CHEST 1 VIEW CLINICAL HISTORY: 44 years Female, shortness of breath COMPARISON: 09/01/2019 FINDINGS: Lungs are clear, with no focal infiltrate, pneumothorax, or pleural effusion. Mediastinum is within normal limits for this positioning. Bony structures are unremarkable. IMPRESSION: 1. No acute pulmonary findings.
[2019-11-05 01:40] VITALS: BP 111/67
--- NOTE | 2019-11-05 17:15 | EKG REPORT ---
SEVERITY:- ABNORMAL ECG - SINUS RHYTHM CONSIDER ANTEROSEPTAL INFARCT PROLONGED QT INTERVAL : Confirmed by: Jose Juan Crouch 05-Nov-2019 17:14:03
== END 2019-11-05 01:40 | disposition home or self-care (01) ==
LOC: ER 22:11
DX: I10 Essential (primary) hypertension (principal); F41.9 Anxiety disorder, unspecified; F17.200 Nicotine dependence, unspecified, uncomplicated; Z59.0 Homelessness
CPT/HCPCS: 71045; 93005; 93010; 99283

== ENCOUNTER 2019-11-06 21:18 | Emergency (ER) | payer OTHER | END 2019-11-06 21:30 | disposition left against medical advice (07) | LOC: ER 21:18 | DX: Z53.21 Procedure and treatment not carried out due to patient leaving prior to being seen by health care provider (principal); F41.9 Anxiety disorder, unspecified ==

== ENCOUNTER 2019-11-06 22:58 | Emergency (ER) | payer OTHER | END 2019-11-07 01:00 | disposition left against medical advice (07) | LOC: ER 22:58 | DX: Z53.21 Procedure and treatment not carried out due to patient leaving prior to being seen by health care provider (principal); I10 Essential (primary) hypertension ==

== ENCOUNTER 2019-11-08 23:26 | Emergency (ER) | payer OTHER ==
[2019-11-08 23:48] VITALS: BP 165/108
== END 2019-11-09 03:15 | disposition left against medical advice (07) ==
LOC: ER 23:26
DX: Z53.21 Procedure and treatment not carried out due to patient leaving prior to being seen by health care provider (principal)

== ENCOUNTER 2019-11-09 07:01 | Emergency (ER) | payer OTHER | END 2019-11-09 08:21 | disposition left against medical advice (07) | LOC: ER 07:01 | DX: Z53.21 Procedure and treatment not carried out due to patient leaving prior to being seen by health care provider (principal) ==

== ENCOUNTER 2019-11-09 23:23 | Emergency (ER) | payer OTHER ==
--- NOTE | 2019-11-09 23:54 | ER Document Report ---
Doctor's Note Notes: Note to Attending Provider...... Please refer to NOTES section from this Provider for important information regarding this Patient and current visit.
[2019-11-10 00:07] VITALS: BP 150/105
== END 2019-11-10 08:09 | disposition left against medical advice (07) ==
LOC: ER 23:23
DX: Z53.21 Procedure and treatment not carried out due to patient leaving prior to being seen by health care provider (principal)

== ENCOUNTER 2019-11-11 03:17 | Emergency (ER) | payer OTHER ==
[2019-11-11 03:35] VITALS: BP 138/104
[2019-11-11 03:56] LABS: ABSOLUTE BASOPHILS # (AUTO) 0.1 10^3/uL (0.0-0.2); ABSOLUTE EOSINOPHILS # (AUTO) 0.3 10^3/uL (0.0-0.6); ABSOLUTE LYMPHOCYTES (AUTO) 3.4 10^3/uL (0.5-4.7); ABSOLUTE MONOCYTES (AUTO) 0.5 10^3/uL (0.1-1.4); ABSOLUTE NEUT (AUTO) 4.3 10^3/uL (1.7-8.2); BASOPHILS % (AUTO) 0.9 % (0-2); EOSINOPHILS % (AUTO) 3.4 % (0-6); HEMOGLOBIN 13.2 g/dL (12.0-15.5); LYMPHOCYTES % (AUTO) 39.4 % (13-45); MEAN CORPUSCULAR HEMOGLOBIN 28.9 pg (27.0-33.4); MEAN CORPUSCULAR HGB CONC 33.9 g/dL (32.0-36.0); MEAN CORPUSCULAR VOLUME 85 fl (80-97); MONOCYTES % (AUTO) 6.1 % (3-13); PLATELET COUNT 263 10^3/uL (150-450); RED BLOOD COUNT 4.57 10^6/uL (3.72-5.28); RED CELL DISTRIBUTION WIDTH 14.7 % (11.5-14.0); SEGMENTED NEUTROPHILS % (AUTO) 50.2 % (42-78); TOTAL CELLS COUNTED % (AUTO) 100 %; WHITE BLOOD COUNT 8.6 10^3/uL (4.0-10.5)
[2019-11-11 04:15] LABS: ALBUMIN 3.7 g/dL (3.5-5.0); ALKALINE PHOSPHATASE 67 U/L (38-126); ANION GAP 8 (5-19); ASPARTATE AMINO TRANSFERASE 38 U/L (14-36); BILIRUBIN,DIRECT 0.1 mg/dL (0.0-0.4); BILIRUBIN,TOTAL 0.2 mg/dL (0.2-1.3); BLOOD UREA NITROGEN 16 mg/dL (7-20); CALCIUM 8.9 mg/dL (8.4-10.2); CARBON DIOXIDE 25 mmol/L (22-30); CHLORIDE 107 mmol/L (98-107); CREATINE KINASE 697 U/L (30-135); GLUCOSE 81 mg/dL (75-110); POTASSIUM 3.7 mmol/L (3.6-5.0); TOTAL PROTEIN 6.8 g/dL (6.3-8.2)
[2019-11-11 04:31] LABS: TROPONIN I < 0.012 ng/mL
--- NOTE | 2019-11-11 13:49 | EKG REPORT ---
SEVERITY:- BORDERLINE ECG - SINUS RHYTHM BORDERLINE LEFT AXIS DEVIATION BORDERLINE T WAVE ABNORMALITIES : Confirmed by: Varsha Eng MD 11-Nov-2019 13:48:51
== END 2019-11-11 05:00 | disposition left against medical advice (07) ==
LOC: ER 03:17
DX: Z53.21 Procedure and treatment not carried out due to patient leaving prior to being seen by health care provider (principal); I10 Essential (primary) hypertension
CPT/HCPCS: 36415; 80053; 82550; 82553; 84484; 85025; 93005; 93010

== ENCOUNTER 2019-11-13 00:43 | Emergency (ER) | payer OTHER ==
[2019-11-13 01:26] VITALS: BP 149/85
== END 2019-11-13 06:50 | disposition left against medical advice (07) ==
LOC: ER 00:43
DX: Z53.21 Procedure and treatment not carried out due to patient leaving prior to being seen by health care provider (principal)

== ENCOUNTER 2019-11-21 18:57 | Emergency (ER) | payer OTHER ==
--- NOTE | 2019-11-21 19:58 | ER Document Report ---
ED Medical Screen (RME) - General Chief Complaint: Anxiety Stated Complaint: ANXIOUS Time Seen by Provider: 11/21/19 19:52 Primary Care Provider: CARLY,MIHAELA [Primary Care Provider] - Follow up as needed Mode of Arrival: Ambulatory Information source: Patient Notes: 44-year-old female presented to ED for complaint of elevated blood pressure and anxiety. She states she went into her doctor's office yesterday and the nurse told her that she was supposed to come to the emergency room yesterday due to her elevated blood pressure her blood per blood pressure at this time is 203/112 on the right arm. States she has been taking losartan 50 mg once a day and she was prescribed losartan 25 mg once a day and her blood pressure still very high. States she is almost out of her blood pressure medicine but the [facility] is [facility]. She states she is having a lot of depression and anxiety at this time. I have greeted and performed a rapid initial assessment of this patient. A comprehensive ED assessment and evaluation of the patient, analysis of test results and completion of medical decision making process will be conducted by an additional ED providers. TRAVEL OUTSIDE OF THE [place] IN LAST 30 DAYS: No - Related Data Allergies/Adverse Reactions: No Known Allergies Allergy (Verified 11/21/19 19:52) Past Medical History - Past Medical History Cardiac Medical History: Reports: Hx Hypertension Renal/ Medical History: Denies: Hx Peritoneal Dialysis Psychiatric Medical History: Reports: Hx Anxiety, Hx Depression - and anxiety Past Surgical History: Reports: Hx Hysterectomy, Hx Tubal Ligation - Immunizations Immunizations up to date: Yes Hx Diphtheria, Pertussis, Tetanus Vaccination: Yes Physical Exam - Vital signs Vitals: Temp Pulse Resp BP Pulse Ox 99.3 F 82 16 181/112 H 98 11/21/19 19:05 11/21/19 19:05 11/21/19 19:05 11/21/19 19:05 11/21/19 19:05 Course - Vital Signs Vital signs: Temp Pulse Resp BP Pulse Ox 99.3 F 82 16 179/110 H 98 11/21/19 19:05 11/21/19 19:05 11/21/19 19:05 11/21/19 19:07 11/21/19 19:05 Doctor's Discharge - Discharge Referrals: [facility] [Primary Care Provider] - Follow up as needed
[2019-11-21 20:42] LABS: APPEARANCE,URINE CLEAR; BILIRUBIN,URINE NEGATIVE (NEGATIVE); COLOR,URINE YELLOW; GLUCOSE, URINE NEGATIVE (NEGATIVE); KETONES,URINE NEGATIVE (NEGATIVE); LEUKOCYTE ESTERASE,URINE NEGATIVE (NEGATIVE); NITRITE,URINE NEGATIVE (NEGATIVE); PROTEIN,URINE NEGATIVE (NEGATIVE); URINE SPECIFIC GRAVITY 1.011; UROBILINOGEN,URINE NEGATIVE mg/dL (<2.0)
[2019-11-21 20:54] LABS: ABSOLUTE BASOPHILS # (AUTO) 0.1 10^3/uL (0.0-0.2); ABSOLUTE EOSINOPHILS # (AUTO) 0.1 10^3/uL (0.0-0.6); ABSOLUTE LYMPHOCYTES (AUTO) 2.8 10^3/uL (0.5-4.7); ABSOLUTE MONOCYTES (AUTO) 0.3 10^3/uL (0.1-1.4); BASOPHILS % (AUTO) 1.1 % (0-2); EOSINOPHILS % (AUTO) 1.9 % (0-6); HEMATOCRIT 40.9 % (36.0-47.0); HEMOGLOBIN 13.6 g/dL (12.0-15.5); LYMPHOCYTES % (AUTO) 44.2 % (13-45); MEAN CORPUSCULAR HEMOGLOBIN 28.7 pg (27.0-33.4); MEAN CORPUSCULAR HGB CONC 33.3 g/dL (32.0-36.0); MEAN CORPUSCULAR VOLUME 86 fl (80-97); MONOCYTES % (AUTO) 4.4 % (3-13); PLATELET COUNT 320 10^3/uL (150-450); RED BLOOD COUNT 4.75 10^6/uL (3.72-5.28); RED CELL DISTRIBUTION WIDTH 14.2 % (11.5-14.0); SEGMENTED NEUTROPHILS % (AUTO) 48.4 % (42-78); TOTAL CELLS COUNTED % (AUTO) 100 %; WHITE BLOOD COUNT 6.3 10^3/uL (4.0-10.5)
[2019-11-21 21:12] LABS: ALBUMIN 4.3 g/dL (3.5-5.0); ALKALINE PHOSPHATASE 55 U/L (38-126); ANION GAP 11 (5-19); ASPARTATE AMINO TRANSFERASE 25 U/L (14-36); BILIRUBIN,DIRECT 0.2 mg/dL (0.0-0.4); BILIRUBIN,TOTAL 0.3 mg/dL (0.2-1.3); BLOOD UREA NITROGEN 10 mg/dL (7-20); CALCIUM 9.8 mg/dL (8.4-10.2); CARBON DIOXIDE 26 mmol/L (22-30); CHLORIDE 103 mmol/L (98-107); GLUCOSE 93 mg/dL (75-110); POTASSIUM 3.9 mmol/L (3.6-5.0); TOTAL PROTEIN 7.8 g/dL (6.3-8.2)
--- NOTE | 2019-11-21 22:09 | ER Document Report ---
ED General - General Chief Complaint: High Blood Pressure Stated Complaint: ANXIOUS Time Seen by Provider: 11/21/19 19:52 [facility]] - Follow up as needed Mode of Arrival: Ambulatory Information source: Patient TRAVEL OUTSIDE OF THE [place] IN LAST 30 DAYS: No - HPI Onset: Other - unknown onset Onset/Duration: Intermittent Quality of pain: No pain Severity: Mild Pain Level: Denies Associated symptoms: Other - anxiety Exacerbated by: Other - anxiety Relieved by: Denies Similar symptoms previously: Yes - patient has chronic anxiety and HTN Recently seen / treated by doctor: Yes - patient has been seen in the ER for similar symptoms in the last month Notes: 44 year old female with a history of Anxiety, Hypertension, and Homelessness here for Anxiety and Hypertension. The patient tells me she is maintained on Losartan 25mg daily. She says she has been taking Losartan, however, she also says she is nearly out and having some more sent to her in the mail by the [facility]. The patient says she went to the [facility] today and was told her BP was high but she did not have her BP medication changed and she cannot tell me how high it was there. - Related Data Allergies/Adverse Reactions: No Known Allergies Allergy (Verified 11/21/19 19:52) Home Medications: LARSARTAN 25 MG Past Medical History - General Information source: Patient - Social History Smoking Status: Current Every Day Smoker Frequency of alcohol use: None Drug Abuse: None Family History: None, Reviewed & Not Pertinent Patient has suicidal ideation: No Patient has homicidal ideation: No - Past Medical History Cardiac Medical History: Reports: Hx Hypertension Renal/ Medical History: Denies: Hx Peritoneal Dialysis Psychiatric Medical History: Reports: Hx Anxiety, Hx Depression - and anxiety Past Surgical History: Reports: Hx Hysterectomy, Hx Tubal Ligation - Immunizations Immunizations up to date: Yes Hx Diphtheria, Pertussis, Tetanus Vaccination: Yes Review of Systems - Review of Systems Constitutional: No symptoms reported EENT: No symptoms reported Cardiovascular: Other - Hypertension Respiratory: No symptoms reported Gastrointestinal: No symptoms reported Genitourinary: No symptoms reported Female Genitourinary: No symptoms reported Musculoskeletal: No symptoms reported Skin: No symptoms reported Hematologic/Lymphatic: No symptoms reported Neurological/Psychological: Anxiety Physical Exam - Vital signs Vitals: Temp Pulse Resp BP Pulse Ox 99.3 F 82 16 181/112 H 98 11/21/19 19:05 11/21/19 19:05 11/21/19 19:05 11/21/19 19:05 11/21/19 19:05 - Notes Notes: GENERAL: Well-appearing, well-nourished and in no acute distress. HEAD: Atraumatic, normocephalic. EYES: Pupils equal round and reactive to light, extraocular movements intact, sclera anicteric, conjunctiva are normal. ENT: TMs normal, nares patent, oropharynx clear without exudates. Moist mucous membranes. NECK: Normal range of motion, supple without lymphadenopathy or JVD. LUNGS: Breath sounds clear to auscultation bilaterally and equal. No wheezes rales or rhonchi. HEART: Regular rate and rhythm without murmurs, rubs or gallops. ABDOMEN: Soft, nontender, normoactive bowel sounds. No guarding, no rebound. No masses appreciated. EXTREMITIES: Normal range of motion, no pitting or edema. No clubbing or cyanosis. NEUROLOGICAL: Cranial nerves II through XII grossly intact. Normal speech, normal gait. PSYCH: Anxious, slightly agitated and aggressive verbally. SKIN: Warm, Dry, normal turgor, no rashes or lesions noted. Course - Re-evaluation Re-evalutation: 11/21/19 22:54 The patient is here for anxiety and for high blood pressure. The patient is maintained on Losartan but it is not clear to me she is taking it as prescribed. The patient is anxious and somewhat verbally aggressive in the ER. I gave her one Hydroxyzine tab in the ER and told her to follow up with her PCP for help with management of her anxiety and hypertension. Will not make BP medication changes today in the ER since patient's blood pressure is likely high due to her anxiety at present. - Vital Signs Vital signs: Temp Pulse Resp BP Pulse Ox 98.2 F 74 18 164/84 H 100 11/21/19 22:25 11/21/19 22:25 11/21/19 22:25 11/21/19 22:25 11/21/19 22:25 - Laboratory Result Diagrams: 11/21/19 20:35 11/21/19 20:35 Laboratory results interpreted by me: 11/21/19 11/21/19 20:10 20:35 RDW 14.2 H Urine Blood SMALL H Discharge - Discharge Clinical Impression: Anxiety Hypertension Qualifiers: Hypertension type: essential hypertension Qualified Code(s): I10 - Essential (primary) hypertension Condition: Stable Disposition: HOME, SELF-CARE Instructions: Anxiety ([facility]), High Blood Pressure ([facility]) Additional Instructions: Continue taking Losartan as prescribed. Monitor your blood pressure and keep a log of your blood pressures. Follow up with your primary care doctor for help with management of your high blood pressure and anxiety. [facility] - Follow up as needed
[2019-11-21] MEDS: HYDROXYZINE PAMOATE 50 MG CAPSULE PO ONE ×2 (22:29→22:41)
[2019-11-21 23:18] VITALS: BP 168/84
== END 2019-11-21 23:10 | disposition home or self-care (01) ==
LOC: ER 18:57
DX: F41.9 Anxiety disorder, unspecified (principal); I10 Essential (primary) hypertension; F17.200 Nicotine dependence, unspecified, uncomplicated; Z79.899 Other long term (current) drug therapy
CPT/HCPCS: 36415; 80053; 81001; 85025; 99283

== ENCOUNTER 2019-11-22 11:41 | Emergency (ER) | payer OTHER ==
[2019-11-22 11:47] VITALS: BP 181/102
--- NOTE | 2019-11-22 11:58 | ER Document Report ---
ED Medical Screen (RME) - General Chief Complaint: Dizziness Stated Complaint: DIZZINESS Time Seen by Provider: 11/22/19 11:55 [facility]: [facility]] - Follow up as needed Mode of Arrival: Medic Information source: Patient, Emergency Med Personnel Notes: Patient presented via EMS for reports of anxiety dizziness. Apparently she has called EMS multiple times. Patient was brought into the pit 1. The community solder making laborer attempted to talk with patient regarding calling 911 for these reasons. She became anxious and walked out of the room. I have greeted and performed a rapid initial assessment of this patient. A comprehensive ED assessment and evaluation of the patient, analysis of test results and completion of the medical decision making process will be conducted by additional ED providers. TRAVEL OUTSIDE OF THE [place] IN LAST 30 DAYS: No - Related Data Allergies/Adverse Reactions: No Known Allergies Allergy (Verified 11/21/19 19:52) Past Medical History - Past Medical History Cardiac Medical History: Reports: Hx Hypertension Renal/ Medical History: Denies: Hx Peritoneal Dialysis Psychiatric Medical History: Reports: Hx Anxiety, Hx Depression - and anxiety Past Surgical History: Reports: Hx Hysterectomy, Hx Tubal Ligation - Immunizations Immunizations up to date: Yes Hx Diphtheria, Pertussis, Tetanus Vaccination: Yes Physical Exam - Vital signs Vitals: Temp Pulse Resp BP Pulse Ox 97.6 F 68 16 181/102 H 100 11/22/19 11:44 11/22/19 11:44 11/22/19 11:44 11/22/19 11:44 11/22/19 11:44 Course - Vital Signs Vital signs: Temp Pulse Resp BP Pulse Ox 97.6 F 68 16 181/102 H 100 11/22/19 11:44 11/22/19 11:44 11/22/19 11:44 11/22/19 11:44 11/22/19 11:44 Doctor's Discharge - Discharge Referrals: [facility]] - Follow up as needed
== END 2019-11-22 12:10 | disposition left against medical advice (07) ==
LOC: ER 11:41
DX: Z53.21 Procedure and treatment not carried out due to patient leaving prior to being seen by health care provider (principal); R42 Dizziness and giddiness; F41.9 Anxiety disorder, unspecified; I10 Essential (primary) hypertension

== ENCOUNTER 2019-11-23 01:17 | Emergency (ER) | payer OTHER ==
--- NOTE | 2019-11-23 05:17 | ER Document Report ---
HPI - HPI Time Seen by Provider: 11/23/19 04:56 Pain Level: 0 Context: Patient is a 44-year-old female that comes to the emergency department for chief complaint of anxiety. She states she woke up and felt anxious. She states that her front door was open and she could not remember if she left it open or not. She states that she became anxious and sought evaluation. She also states that she was "picked up by law enforcement" and "went to the [facility] and they told me I had to get a psychiatric evaluation or I could not walk". She states that she was "brought by law enforcement to the emergency department for psychiatric evaluation". She denies any symptoms otherwise including vomiting, fever, chest pain, dizziness. She states she is supposed to be taking blood pressure medication, she used to be on medication for anxiety but is not anymore. She denies SI or HI. - CONSTITUTIONAL Constitutional: DENIES: Fever, Chills - REPRODUCTIVE Reproductive: DENIES: : Past Medical History - General Information source: Patient - Social History Smoking Status: Current Every Day Smoker Frequency of alcohol use: None Drug Abuse: None Lives with: Alone Family History: None, Reviewed & Not Pertinent Patient has suicidal ideation: No Patient has homicidal ideation: No - Past Medical History Cardiac Medical History: Reports: Hx Hypertension Renal/ Medical History: Denies: Hx Peritoneal Dialysis Psychiatric Medical History: Reports: Hx Anxiety, Hx Depression - and anxiety Past Surgical History: Reports: Hx Hysterectomy, Hx Tubal Ligation - Immunizations Immunizations up to date: Yes Hx Diphtheria, Pertussis, Tetanus Vaccination: Yes Vertical Provider Document - CONSTITUTIONAL General Appearance: WD/WN, No Apparent Distress - INFECTION CONTROL TRAVEL OUTSIDE OF THE U.[place]. IN LAST 30 DAYS: No - HEENT HEENT: Atraumatic, Normocephalic - NECK Neck: Normal Inspection - RESPIRATORY Respiratory: Breath Sounds Normal, No Respiratory Distress - CARDIOVASCULAR Cardiovascular: Regular Rate, Regular Rhythm - GI/ABDOMEN Gastrointestinal: Abdomen Soft, Abdomen Non-Tender - BACK Back: Normal Inspection - MUSCULOSKELETAL/EXTREMETIES Musculoskeletal/Extremeties: MAEW, FROM, Non-Tender - NEURO Level of Consciousness: Awake, Alert Motor/Sensory: No Motor Deficit, No Sensory Deficit - DERM Integumentary: Warm, Dry, No Rash Course - Re-evaluation Re-evalutation: Patient has no paperwork stating she is supposed to get a psychiatric evaluation, nurse and alumnae secretary at ED greeting desk both tell me that patient did not come with the law enforcement escort she reported, they state that she walked in on her own accord. Patient tells me that she has not had a psychiatric evaluation at any point recently and she has been seen by mental health repeatedly recently. I discussed this with patient. She became irritable, she started shaking her head, stopped answering questions specifically. I explained to her that I would discuss the situation with my attending but based on her evaluation I believed that she could be discharged and she can follow-up with [facility] for mental health/anxiety. Patient frustrated at this, states she wants to stay and sleep. I explained that unfortunately this was not possible and she would be discharged. I discussed with Dr. Sullivan, he agrees with discharge at this time. Patient left without signing discharge paperwork. - Vital Signs Vital signs: Temp Pulse Resp BP Pulse Ox 98.5 F 72 18 100 11/23/19 01:24 11/23/19 01:24 11/23/19 01:24 11/23/19 01:24 Discharge - Discharge Clinical Impression: Anxiety Condition: Stable Disposition: HOME, SELF-CARE Additional Instructions: The provider feels that some of your health problems are being caused by anxiety. Anxiety affects your health in many ways. Anxiety alone can cause palpitations, sweats, chest pains, abdominal pains, shortness of breath, and headaches. It contributes to ulcer disease, high blood pressure, irritable bowel syndrome, and has been shown to cause flare-ups of many other diseases. Anxiety is not a simple disorder to treat. If the anxiety is due to recent life stresses, you may simply need time to "work through" the changes. If the anxiety is due to an underlying unhappiness with yourself or due to psychiatric disturbance, professional help will be needed. Call the listed referral for followup. Return to the emergency department for any concerning symptoms or something is not right. [facility] - Follow up as needed [facility] [Provider Group] - Follow up as needed
== END 2019-11-23 05:33 | disposition home or self-care (01) ==
LOC: ER 01:17
DX: F41.9 Anxiety disorder, unspecified (principal); F17.200 Nicotine dependence, unspecified, uncomplicated; Z90.710 Acquired absence of both cervix and uterus
CPT/HCPCS: 99283

== ENCOUNTER 2019-11-23 22:30 | Emergency (ER) | payer OTHER ==
--- NOTE | 2019-11-24 02:29 | ER Document Report ---
ED General - General Mode of Arrival: Ambulatory Information source: Patient TRAVEL OUTSIDE OF THE U.S. IN LAST 30 DAYS: No - HPI Patient complains to provider of: Anxiety causing mental duress. Patient denies any suicidal or homicidal id Onset: This morning Onset/Duration: Persistent Severity: None Pain Level: 0 Associated symptoms: Other - Anxiety Exacerbated by: Other - "lifes stresses" Relieved by: Denies Similar symptoms previously: Yes Recently seen / treated by doctor: Yes - Related Data Home Medications: patient not engaging <HUGO ELMORE JR - Last Filed: 11/24/19 02:32> <YESICA ALICEA - Last Filed: 11/24/19 12:53> - General Chief Complaint: Psych Problem Stated Complaint: ANXIETY Time Seen by Provider: 11/24/19 02:24 Primary Care Provider: [facility] [Provider Group] - Follow up as needed [facility] - Follow up as needed - Related Data Allergies/Adverse Reactions: No Known Allergies Allergy (Verified 11/24/19 00:10) Past Medical History - General Information source: Patient - Social History Smoking Status: Current Every Day Smoker Cigarette use (# per day): Yes Chew tobacco use (# tins/day): No Smoking Education Provided: Yes Lives with: Alone, Other - Homeless Family History: None, Reviewed & Not Pertinent Patient has suicidal ideation: No Patient has homicidal ideation: No - Past Medical History Cardiac Medical History: Reports: Hx Hypertension Renal/ Medical History: Denies: Hx Peritoneal Dialysis Psychiatric Medical History: Reports: Hx Anxiety, Hx Depression - and anxiety Past Surgical History: Reports: Hx Hysterectomy, Hx Tubal Ligation - Immunizations Immunizations up to date: Yes Hx Diphtheria, Pertussis, Tetanus Vaccination: Yes <HUGO ELMORE JR - Last Filed: 11/24/19 02:32> Review of Systems - Review of Systems Constitutional: No symptoms reported EENT: No symptoms reported Cardiovascular: No symptoms reported Respiratory: No symptoms reported Gastrointestinal: No symptoms reported Genitourinary: No symptoms reported Female Genitourinary: No symptoms reported Musculoskeletal: No symptoms reported Skin: No symptoms reported Hematologic/Lymphatic: No symptoms reported Neurological/Psychological: Anxiety, Other - Reports her hypertension goes away when her anxiety goes away <HUGO ELMORE JR - Last Filed: 11/24/19 02:32> Physical Exam - Vital signs Interpretation: Normal - General General appearance: Appears well, Alert - HEENT Head: Normocephalic, Atraumatic Eyes: Normal Pupils: PERRL - Respiratory Respiratory status: No respiratory distress Chest status: Nontender Breath sounds: Normal Chest palpation: Normal - Cardiovascular Rhythm: Regular Heart sounds: Normal auscultation Murmur: No - Abdominal Inspection: Normal Distension: No distension Bowel sounds: Normal Tenderness: Nontender Organomegaly: No organomegaly - Back Back: Normal, Nontender - Extremities General upper extremity: Normal inspection, Nontender, Normal color, Normal ROM, Normal temperature General lower extremity: Normal inspection, Nontender, Normal color, Normal ROM, Normal temperature, Normal weight bearing. No: Gisselle's sign - Neurological Neuro grossly intact: Yes Cognition: Normal Orientation: AAOx4 [place] Coma Scale Eye Opening: Spontaneous [place] Coma Scale Verbal: Oriented [place] Coma Scale Motor: Obeys Commands Lizeth Coma Scale Total: 15 Speech: Normal Motor strength normal: LUE, RUE, LLE, RLE Sensory: Normal - Psychological Associated symptoms: Normal affect, Normal mood - Skin Skin Temperature: Warm Skin Moisture: Dry Skin Color: Normal <HUGO ELMORE JR - Last Filed: 11/24/19 02:32> - Vital signs Vitals: Temp Pulse Resp BP Pulse Ox 98.1 F 88 20 196/117 H 100 11/23/19 22:42 11/23/19 22:42 11/23/19 22:42 11/23/19 22:42 11/23/19 22:42 Course <HUGO ELMORE JR - Last Filed: 11/24/19 02:32> - Laboratory Result Diagrams: 11/24/19 02:55 11/24/19 02:55 <YESICA ALICEA - Last Filed: 11/24/19 12:53> - Re-evaluation Re-evalutation: 11/24/19 02:28 [address] IVC paper this patient and place her on Ativan to Geodon 20 p.o. and Catapres 0.2 (HUGO ELMORE JR) 11/24/19 10:30 Sanket with the mental health team states that patient does not meet IVC criteria and has a known history of anxiety and will frequently present to the ER as she is homeless. [facility] 11/24/19 11:02 Pt resting on stretcher states that she would like to have her blood sugar checked and that she would like coffee. Patient denies any suicidal homicidal ideation. Consulted with Dr. Choudhary regarding patient presentation, Dr. Choudhary agrees that patient does not meet criteria at this time for IVC. Patient is otherwise stable for discharge and will be given out patient resource information for [facility] per her request. 11/24/19 11:23 pt denies homelessness but states that she would like inpatient treatment and is wanting transferred. Patient repeatedly saying this life is not worth living although denies SI or HI with any type of plan. Patient continues to repeat herself as she states that she does not want to be discharged. She is demonstrating malingering behavior. 11/24/19 12:50 Patient has been evaluated by mental health team and does not meet IVC criteria at this time. Mental health team states she does have outpatient resources and appointments and encouraged her to follow-up with them. Patient medically clear for discharge. Patient eating lunch and states that she is her blood pressure medication change that she does not like to take this current medication. Patient advised that provider would give her a 2-week refill of what she had presently been taking but that any medication changes would have to come from her primary doctor. Patient states she does not want to see her primary doctor as she states that she uncontrolled with them. Camila with mental health team says she spoke with Carrie who confirmed that patient is still currently enrolled in their system and has active appointments later this month. Patient states that she is getting documentation together because [facility] and [facility] is a recorded line. Patient states that she is doing these things to protect herself. Provider then attempted to reassure patient that if she is doing things to protect herself and that means that she does not want to harm herself. Patient then became agitated stating that she has more training then many of the medical staff members here and she feels that she needs i npatient treatment. Patient is requesting to speak with the patient advocate. Nurse encouraged to get patient advocate for patient and then patient can be discharged. Camila with mental health team states that Dr. Nuñez called after speaking with risk-management and states that patient can be discharged and that if refuses to leave the premises that [place] [employer] can be contacted for trespassing. (YESICA ALICEA) - Vital Signs Vital signs: Temp Pulse Resp BP Pulse Ox 98.3 F 79 20 113/67 99 11/24/19 10:39 11/24/19 10:39 11/24/19 10:39 11/24/19 10:39 11/24/19 10:39 - Laboratory Laboratory results interpreted by me: 11/24/19 11/24/19 11/24/19 02:55 02:55 04:24 RDW 14.7 H Urine Blood SMALL H Acetaminophen < 10 L Discharge <HUGO ELMORE JR - Last Filed: 11/24/19 02:32> <YESICA ALICEA - Last Filed: 11/24/19 12:53> - Discharge Clinical Impression: Anxiety Hypertension Qualifiers: Hypertension type: unspecified Qualified Code(s): I10 - Essential (primary) hypertension Condition: Fair Disposition: PSYCH HOSP/UNIT Instructions: Anxiety ([facility]), High Blood Pressure ([facility]) Additional Instructions: Return immediately for any new or worsening symptoms Followup with your primary care provider, you already have an appointment on November 29 of this month. Keep your mental health follow-up appointment on 12/14/2019 at 1 PM Follow-up with the OR clinic Follow-up with [facility], their contact information is on the handout provided. Prescriptions: Losartan Potassium [Cozaar] 25 mg PO DAILY #15 tablet [facility] - Follow up as needed [facility] [Provider Group] - Follow up as needed
[2019-11-24] MEDS ORDERED: ZIPRASIDONE HCL 20 MG CAPSULE PO ONE (02:30)
[2019-11-24] MEDS ORDERED: CLONIDINE HCL 0.2 MG TABLET PO ONE (02:30)
[2019-11-24] MEDS ORDERED: LORAZEPAM 1 MG TABLET PO ONE (02:30)
[2019-11-24 03:05] LABS: ABSOLUTE BASOPHILS # (AUTO) 0.1 10^3/uL (0.0-0.2); ABSOLUTE EOSINOPHILS # (AUTO) 0.2 10^3/uL (0.0-0.6); ABSOLUTE LYMPHOCYTES (AUTO) 2.8 10^3/uL (0.5-4.7); ABSOLUTE MONOCYTES (AUTO) 0.4 10^3/uL (0.1-1.4); ABSOLUTE NEUT (AUTO) 4.7 10^3/uL (1.7-8.2); BASOPHILS % (AUTO) 1.2 % (0-2); EOSINOPHILS % (AUTO) 2.3 % (0-6); HEMATOCRIT 42.4 % (36.0-47.0); HEMOGLOBIN 13.9 g/dL (12.0-15.5); LYMPHOCYTES % (AUTO) 34.5 % (13-45); MEAN CORPUSCULAR HEMOGLOBIN 28.9 pg (27.0-33.4); MEAN CORPUSCULAR HGB CONC 32.9 g/dL (32.0-36.0); MEAN CORPUSCULAR VOLUME 88 fl (80-97); MONOCYTES % (AUTO) 4.6 % (3-13); PLATELET COUNT 325 10^3/uL (150-450); RED BLOOD COUNT 4.83 10^6/uL (3.72-5.28); RED CELL DISTRIBUTION WIDTH 14.7 % (11.5-14.0); SEGMENTED NEUTROPHILS % (AUTO) 57.4 % (42-78); TOTAL CELLS COUNTED % (AUTO) 100 %; WHITE BLOOD COUNT 8.2 10^3/uL (4.0-10.5)
[2019-11-24 03:21] LABS: ALBUMIN 4.1 g/dL (3.5-5.0); ALKALINE PHOSPHATASE 64 U/L (38-126); ANION GAP 8 (5-19); ASPARTATE AMINO TRANSFERASE 22 U/L (14-36); BILIRUBIN,DIRECT 0.1 mg/dL (0.0-0.4); BILIRUBIN,TOTAL 0.3 mg/dL (0.2-1.3); BLOOD UREA NITROGEN 13 mg/dL (7-20); CALCIUM 9.4 mg/dL (8.4-10.2); CARBON DIOXIDE 26 mmol/L (22-30); CHLORIDE 105 mmol/L (98-107); GLUCOSE 91 mg/dL (75-110); POTASSIUM 3.8 mmol/L (3.6-5.0); SALICYLATE 2.3 mg/dL (2.0-20.0); TOTAL PROTEIN 7.4 g/dL (6.3-8.2)
[2019-11-24 03:23] LABS: ACETAMINOPHEN < 10 ug/mL (10-30); ALCOHOL < 10 mg/dL (NONE DETECTED)
--- NOTE | 2019-11-24 04:21 | RADIOLOGY REPORT (SQ) ---
EXAM DESCRIPTION: CT HEAD WITHOUT IV CONTRAST COMPLETED DATE/TME: 11/24/2019 03:14 CLINICAL HISTORY: 44 years, Female, htn COMPARISON: None. TECHNIQUE: 204 Images stored on PACS. All CT scanners at this facility use dose modulation, iterative reconstruction, and/or weight based dosing when appropriate to reduce radiation dose to as low as reasonably achievable (ALARA). [facility]: Dose Right [facility]: CareDose [facility]: Dose Right [facility]: Teradose 4D [facility]: [employer] Technologies LIMITATIONS: None. FINDINGS: The globes are intact. The paranasal sinuses and mastoid air cells are unremarkable. No displaced or depressed skull fracture. No intra or extra-axial hemorrhage. CT is limited for evaluation of acute infarct. No CT evidence for large or territorial acute infarct. No mass or midline shift IMPRESSION: Negative exam TECHNICAL DOCUMENTATION: Quality ID # [id number]: Final reports with documentation of one or more dose reduction techniques (e.g., Automated exposure control, adjustment of the mA and/or kV according to patient size, use of iterative reconstruction technique) copyright 2011 [email or web address]- All Rights Reserved
[2019-11-24 04:53] LABS: APPEARANCE,URINE CLEAR; BILIRUBIN,URINE NEGATIVE (NEGATIVE); COLOR,URINE STRAW; GLUCOSE, URINE NEGATIVE (NEGATIVE); KETONES,URINE NEGATIVE (NEGATIVE); LEUKOCYTE ESTERASE,URINE NEGATIVE (NEGATIVE); NITRITE,URINE NEGATIVE (NEGATIVE); PROTEIN,URINE NEGATIVE (NEGATIVE); URINE SPECIFIC GRAVITY 1.005; UROBILINOGEN,URINE NEGATIVE mg/dL (<2.0)
[2019-11-24 05:01] LABS: URINE AMPHETAMINES SCREEN NEGATIVE; URINE BARBITURATES SCREEN NEGATIVE; URINE BENZODIAZEPINES SCREEN NEGATIVE; URINE COCAINE SCREEN NEGATIVE; URINE MARIJUANA (THC) SCREEN NEGATIVE; URINE METHADONE SCREEN NEGATIVE; URINE PHENCYCLIDINE SCREEN NEGATIVE
[2019-11-24 13:20] VITALS: BP 132/87
--- NOTE | 2019-11-24 14:37 | PSYCHOLOGICAL NOTE ---
Psych Note - Psych Note Date seen by psych provider: 11/24/19 Time seen by psych provider: 12:30 Psych Note: Reason For Consult:Upon discharge patient request for mental health evaluation Consent Permissions:none provided Patient reports she wants a mental health evaluation. She states she would like to go to [place] to [facility] because she has been to [facility] and "they changed to rules just for me, so I don't want to go back there." She states she does not like doctors or hospitals but feels she needs to go inpatient. Clinician explained IVC verses voluntary, transportation, and the importance of outpatient follow up. Patient continues to discuss how other hospitals have snacks in the waiting room but feels that she still has received adequate care from [facility]. Patient reports that she really wants assistance in getting to [facility] because she refuses to follow-up with the [facility] for treatment. Clinician reminded patient that she has an appointment with the [facility] clinic for both medical and behavioral hea lth. Patient states she is been refusing to go to those appointments. Clinician offered resource list so patient can choose a new provider. Patient again started to discuss her need for going inpatient. Patient was reminded that this is a medical hospital and that the patient does not meet IVC criteria so transportation is not possible. Patient began to make vague suicidal comments in regards to eating treatment; "I have been telling you I needed treatment for months...I have anxiety and depression...I don't want to be here, in the place or in this life... I keep coming in and you want send me to [facility]... I do not want to be here, I just want to be sent inpatient to wake up in a new place to start a different chapter in life." She then states she will hold the clinician responsible because she is being discharged. Clinician attempted to discuss patient's numerous past visits and explained the importance of using emergency services for emergencies. If patient needs assist ance with housing or food these resources information can be provided. Patient states she has a place to live. Clinician again reminded the patient that she has had frequent visits and then refuses to engage with staff for treatment. Patient states she has the right to do this. Patient is alert and orientated to person, place, time and circumstance. Mood is irritable with congruent affect. Patient denies suicidal and homicidal ideation over is noted to make vague suicidal comments upon discharge. Patient notes patient does have a documented history with attempting to sabotage her discharges. Delusions are absent and behaviors congruent with an intact reality based presentation ie organized and linear thought process. Eye contact is well-maintained. Conversational speech is within normal rate, tone and prosody. Intellectual abilities appear to be within the average range. Attention and concentration are good. Insight, judgment, impulse control are fair. Patient continues to refuse to leave [facility]. [facility] was contacted and the patient has been warned she is now banned from [facility] unless there is a MEDICAL emergency. If the patient has a mental health emergency she can use other community services such as [facility], [place] local clinic, and mobile crisis. Patient received a written trespass warning from [facility] and her case number for the ban is [id number]. Impression\\plan:Patient is cleared from acute psychiatric services. Patient requested to have transport to inpatient. She provides vague mental health concerns that she continues to reports during previous evaluations. Patient refuses to follow up with recommendations for outpatient therapy and medication. She has chronic issues with homelessness and appears to use the hospital for a place to sleep. Patient is noted to come in the evening after the behavioral health team is gone for the day in an effort to spend the night. Patient has been banned and trespassed from [facility]. Patient can only been seen if it is a MEDICAL emergency. Dr. Nuñez was consulted to care management of this patient; attending physicians in agreement with recommendations and disposition.
--- NOTE | 2019-11-24 21:00 | EKG REPORT ---
SEVERITY:- ABNORMAL ECG - SINUS RHYTHM PROBABLE LEFT VENTRICULAR HYPERTROPHY ANTERIOR Q WAVES, POSSIBLY DUE TO LVH : Confirmed by: Jose Juan Crouch 24-Nov-2019 20:59:50
== END 2019-11-24 13:19 ==
LOC: ER 22:30
DX: F41.9 Anxiety disorder, unspecified (principal); I10 Essential (primary) hypertension; F17.210 Nicotine dependence, cigarettes, uncomplicated; Z90.710 Acquired absence of both cervix and uterus; Z59.0 Homelessness
CPT/HCPCS: 36415; 70450; 80053; 80307; 81001; 82962; 84443; 84703; 85025; 86592; 93005; 93010; 99285

== ENCOUNTER 2019-11-30 15:46 | Emergency (ER) | payer OTHER ==
--- NOTE | 2019-11-30 16:46 | ER Document Report ---
ED Medical Screen (RME) - General Stated Complaint: high blood pressure Time Seen by Provider: 11/30/19 16:38 Primary Care Provider: CARLY,MIHAELA [Primary Care Provider] - Follow up as needed Mode of Arrival: Ambulatory Information source: Patient TRAVEL OUTSIDE OF THE [place] IN LAST 30 DAYS: No - HPI Notes: 11/30/19 16:46 44-year-old female presents emergency room for complaints of chest pain, elevated blood pressure. Patient states chest pain started yesterday around 3:00 when she was arguing with another person, she states is worse with anxiety. Chest pain comes and goes, she noticed that this morning when she did wake up. States worse with her anxiety exacerbations. Patient signed herself out of Jud yesterday. Denies fevers, chills, palpitations, shortness of breath, dyspnea, nausea, vomiting, diarrhea, abdominal pain, hematuria,blurred vision, double vision, loss of vision, speech changes, LH, dizziness, syncope, headaches, wheezing, ST, URI, neck pain, weakness, bowel or bladder dysfunction, saddle anesthesia, numbness or tingling in bilateral upper or lower extremities equally, muscle paralysis, weakness in bilateral upper or lower extremities equally or rash. I have greeted and performed a rapid initial assessment of this patient. A comprehensive ED assessment and evaluation of the patient, analysis of test results and completion of the medical decision making process will be conducted by additional ED providers. PHYSICAL EXAMINATION: GENERAL: Well-appearing, well-nourished and in no acute distress. HEAD: Atraumatic, normocephalic. EYES: Pupils equal round extraocular movements intact, conjunctiva are normal. NECK: Normal range of motion CV: s1, s2 regular LUNGS: No respiratory distress Musculoskeletal: Normal range of motion NEUROLOGICAL: Normal speech, normal gait. SKIN: Warm, Dry, normal turgor, no rashes or lesions noted. - Related Data Allergies/Adverse Reactions: No Known Allergies Allergy (Verified 11/24/19 00:10) Past Medical History - Past Medical History Cardiac Medical History: Reports: Hx Hypertension Renal/ Medical History: Denies: Hx Peritoneal Dialysis Psychiatric Medical History: Reports: Hx Anxiety, Hx Depression - and anxiety Past Surgical History: Reports: Hx Hysterectomy, Hx Tubal Ligation - Immunizations Immunizations up to date: Yes Hx Diphtheria, Pertussis, Tetanus Vaccination: Yes Physical Exam - Vital signs Vitals: Temp Pulse Resp BP Pulse Ox 98.3 F 80 16 179/105 H 100 11/30/19 16:36 11/30/19 16:36 11/30/19 16:36 11/30/19 16:36 11/30/19 16:36 Course - Vital Signs Vital signs: Temp Pulse Resp BP Pulse Ox 98.3 F 80 16 179/105 H 100 11/30/19 16:36 11/30/19 16:36 11/30/19 16:36 11/30/19 16:36 11/30/19 16:36 Doctor's Discharge - Discharge [facility] - Follow up as needed
[2019-11-30 17:36] LABS: ABSOLUTE EOSINOPHILS # (AUTO) 0.1 10^3/uL (0.0-0.6); ABSOLUTE LYMPHOCYTES (AUTO) 2.7 10^3/uL (0.5-4.7); ABSOLUTE MONOCYTES (AUTO) 0.4 10^3/uL (0.1-1.4); ABSOLUTE NEUT (AUTO) 3.9 10^3/uL (1.7-8.2); BASOPHILS % (AUTO) 0.7 % (0-2); EOSINOPHILS % (AUTO) 1.6 % (0-6); HEMATOCRIT 38.3 % (36.0-47.0); HEMOGLOBIN 12.9 g/dL (12.0-15.5); LYMPHOCYTES % (AUTO) 37.6 % (13-45); MEAN CORPUSCULAR HEMOGLOBIN 28.9 pg (27.0-33.4); MEAN CORPUSCULAR HGB CONC 33.5 g/dL (32.0-36.0); MEAN CORPUSCULAR VOLUME 86 fl (80-97); MONOCYTES % (AUTO) 5.7 % (3-13); PLATELET COUNT 285 10^3/uL (150-450); RED BLOOD COUNT 4.45 10^6/uL (3.72-5.28); RED CELL DISTRIBUTION WIDTH 14.7 % (11.5-14.0); SEGMENTED NEUTROPHILS % (AUTO) 54.4 % (42-78); TOTAL CELLS COUNTED % (AUTO) 100 %; WHITE BLOOD COUNT 7.2 10^3/uL (4.0-10.5)
--- NOTE | 2019-11-30 17:36 | RADIOLOGY REPORT (SQ) ---
EXAM DESCRIPTION: CHEST SINGLE VIEW COMPLETED DATE/TIME: 11/30/2019 5:27 pm REASON FOR STUDY: elevated bp COMPARISON: 11/05/2019. EXAM PARAMETERS: NUMBER OF VIEWS: One view. TECHNIQUE: Single frontal radiographic view of the chest acquired. RADIATION DOSE: NA LIMITATIONS: None. FINDINGS: LUNGS AND PLEURA: No opacities, masses or pneumothorax. No pleural effusion. MEDIASTINUM AND HILAR STRUCTURES: No masses. Contour normal. HEART AND VASCULAR STRUCTURES: Heart normal in size. Normal vasculature. BONES: No acute findings. HARDWARE: None in the chest. OTHER: No other significant finding. IMPRESSION: NO ACUTE RADIOGRAPHIC FINDING IN THE CHEST. TECHNICAL DOCUMENTATION: JOB ID: [id number] [employer]- All Rights Reserved Reading location - IP/workstation name: [email or web address]
[2019-11-30 17:41] LABS: APPEARANCE,URINE SLIGHTLY-CLOUDY; BILIRUBIN,URINE NEGATIVE (NEGATIVE); COLOR,URINE YELLOW; GLUCOSE, URINE NEGATIVE (NEGATIVE); KETONES,URINE NEGATIVE (NEGATIVE); LEUKOCYTE ESTERASE,URINE NEGATIVE (NEGATIVE); NITRITE,URINE NEGATIVE (NEGATIVE); PROTEIN,URINE NEGATIVE (NEGATIVE); URINE SPECIFIC GRAVITY 1.011; UROBILINOGEN,URINE NEGATIVE mg/dL (<2.0)
[2019-11-30 17:57] LABS: ALBUMIN 3.9 g/dL (3.5-5.0); ALKALINE PHOSPHATASE 56 U/L (38-126); ANION GAP 8 (5-19); ASPARTATE AMINO TRANSFERASE 27 U/L (14-36); BILIRUBIN,DIRECT 0.2 mg/dL (0.0-0.4); BILIRUBIN,TOTAL 0.2 mg/dL (0.2-1.3); BLOOD UREA NITROGEN 6 mg/dL (7-20); CALCIUM 9.3 mg/dL (8.4-10.2); CARBON DIOXIDE 28 mmol/L (22-30); CHLORIDE 104 mmol/L (98-107); GLUCOSE 97 mg/dL (75-110); POTASSIUM 3.9 mmol/L (3.6-5.0); TOTAL PROTEIN 7.1 g/dL (6.3-8.2)
[2019-11-30 19:11] VITALS: BP 169/106
--- NOTE | 2019-11-30 23:32 | EKG REPORT ---
SEVERITY:- BORDERLINE ECG - SINUS RHYTHM BORDERLINE T WAVE ABNORMALITIES : Confirmed by: Varsha Eng MD 30-Nov-2019 23:31:08
== END 2019-11-30 20:36 | disposition left against medical advice (07) ==
LOC: ER 15:46
DX: I10 Essential (primary) hypertension (principal); R07.9 Chest pain, unspecified; Z53.20 Procedure and treatment not carried out because of patient's decision for unspecified reasons
CPT/HCPCS: 36415; 71045; 80053; 81001; 84443; 84484; 85025; 93005; 93010; 99281

== ENCOUNTER 2019-12-01 23:33 | Emergency (ER) | payer OTHER ==
--- NOTE | 2019-12-02 00:58 | ER Document Report ---
ED Medical Screen (RME) - General Chief Complaint: High Blood Pressure Stated Complaint: SUICIDE IDEATION Time Seen by Provider: 12/02/19 00:50 Primary Care Provider: CARLY,MIHAELA [Primary Care Provider] - Follow up as needed Mode of Arrival: Ambulatory Information source: Patient Notes: Patient is a 44-year-old female presenting to emergency department initially complaining of suicidal ideations. Patient is frequently into time to our facility with either suicidal thoughts or elevated blood pressure. When I went and spoke with the patient patient is complaining of elevated blood pressure. She would not elaborate on her suicidal thoughts. She is currently sleeping on a bench in the lobby but does arouse with verbal stimuli to answer some questions. She is not being compliant with a full triage/medical screening. It is come to our attention that there may be some type of trespassing order in on this patient however charge nurse Anisha Tee RN called the nurse transport company manager Vasquez Arthur to get clarification on this and per Vasquez there is no such order that he has been made aware of and the patient needs to be seen in the emergency department as per usual protocols. I have greeted and performed a rapid initial assessment of this patient. A comprehensive ED assessment and evaluation of the patient, analysis of test results and completion of the medical decision making process will be conducted by additional ED providers. I have specifically instructed the patient or family members with the patient to immediately return to any nursing staff should anything change in the patient's condition or with their chief complaint. TRAVEL OUTSIDE OF THE [place] IN LAST 30 DAYS: No - Related Data Allergies/Adverse Reactions: No Known Allergies Allergy (Verified 11/24/19 00:10) Past Medical History - Past Medical History Cardiac Medical History: Reports: Hx Hypertension Renal/ Medical History: Denies: Hx Peritoneal Dialysis Psychiatric Medical History: Reports: Hx Anxiety, Hx Depression - and anxiety Past Surgical History: Reports: Hx Hysterectomy, Hx Tubal Ligation - Immunizations Immunizations up to date: Yes Hx Diphtheria, Pertussis, Tetanus Vaccination: Yes Physical Exam - Vital signs Vitals: Temp Pulse Resp BP Pulse Ox 98.7 F 90 16 167/114 H 100 12/01/19 23:40 12/01/19 23:40 12/01/19 23:40 12/01/19 23:40 12/01/19 23:40 Course - Vital Signs Vital signs: Temp Pulse Resp BP Pulse Ox 98.7 F 90 16 167/114 H 100 12/01/19 23:40 12/01/19 23:40 12/01/19 23:40 12/01/19 23:40 12/01/19 23:40 Doctor's Discharge - Discharge [facility] - Follow up as needed
[2019-12-02] MEDS ORDERED: LOSARTAN POTASSIUM 25 MG TABLET PO ONE (01:01)
--- NOTE | 2019-12-02 01:48 | ER Document Report ---
ED General - General Chief Complaint: Blood Pressure Problem Stated Complaint: BLOOD PRESSURE PROBLEM Time Seen by Provider: 12/02/19 00:50 Primary Care Provider: CARLY,MIHAELA [Primary Care Provider] - Follow up as needed Mode of Arrival: Ambulatory Notes: 44-year-old female presents emergency department due to concerns over hypertension. Patient states she was at [facility] when she developed chest pain, shortness of breath and headache as well as some abdominal discomfort so she checked her blood pressure and found her systolic blood pressure to be 240 mmHg. Patient states she took aspirin but was unable to take any medications aside from that because she has been out of her blood pressure and anxiety medications for the past week. Patient states that the last time she had any medications was when she was in [facility] 2 to 3 days ago. She does not know what the medication is that she supposed to be taking. She states she thinks it starts with a C and its 25 mg 3 times a day but does not know what it is. Currently patient is chest pain-free unless she sits up and then she has chest pain, she also complains of feeling short of breath and states that she has a lot of phlegm in her throat. Denies any current headache. Admits history of hypertension, denies any other past medical history. Patient states that her medications are supposed to be mailed to her. TRAVEL OUTSIDE OF THE [place] IN LAST 30 DAYS: No - Related Data Allergies/Adverse Reactions: No Known Allergies Allergy (Verified 11/24/19 00:10) Past Medical History - General Information source: Patient - Social History Smoking Status: Current Every Day Smoker Chew tobacco use (# tins/day): No Frequency of alcohol use: None Drug Abuse: None Family History: None, Reviewed & Not Pertinent Patient has suicidal ideation: No Patient has homicidal ideation: No - Past Medical History Cardiac Medical History: Reports: Hx Hypertension Renal/ Medical History: Denies: Hx Peritoneal Dialysis Psychiatric Medical History: Reports: Hx Anxiety, Hx Depression - and anxiety Past Surgical History: Reports: Hx Hysterectomy, Hx Tubal Ligation - Immunizations Immunizations up to date: Yes Hx Diphtheria, Pertussis, Tetanus Vaccination: Yes Review of Systems - Review of Systems Constitutional: No symptoms reported EENT: See HPI - Increased phlegm in his throat. Cardiovascular: See HPI, Chest pain, Other - Hypertension. Respiratory: See HPI, Short of breath. denies: Cough Gastrointestinal: See HPI, Abdominal pain -: Yes All other systems reviewed and negative Physical Exam - Vital signs Vitals: Temp Pulse Resp BP Pulse Ox 98.7 F 90 16 167/114 H 100 12/01/19 23:40 12/01/19 23:40 12/01/19 23:40 12/01/19 23:40 12/01/19 23:40 Interpretation: Hypertensive - Notes Notes: GENERAL: Alert, interacts well. No acute distress. HEAD: Normocephalic, atraumatic EYES: Pupils equal, round and reactive to light, extraocular movements intact. ENT: Oral mucosa moist, tongue midline. No rhinorrhea, no turbinate edema, nares patent, tympanic membranes intact, no postnasal drip. No swelling in the posterior oropharynx. NECK: Full range of motion, supple, trachea midline. LUNGS: Clear to auscultation bilaterally, no wheezes, rales or rhonchi, no respiratory distress. HEART: Regular rate and rhythm, no murmurs, gallops, rubs. ABDOMEN: Soft, nontender, nondistended, bowel sounds present in all 4 quadrants. EXTREMITIES: Moves all 4 extremities spontaneously, no edema, radial and dorsalis pedis pulses 2/4 bilaterally. No cyanosis. NEUROLOGICAL: Alert and oriented x3, normal speech, no facial droop, biceps and patellar DTRs 2+ bilaterally. PSYCH: Normal mood, normal affect. SKIN: Warm, Dry, normal turgor, no rashes or lesions noted. Course - Re-evaluation Re-evalutation: 12/02/19 03:28 CBC unremarkable, CMP unremarkable, CK and CK-MB both mildly elevated, troponin initially negative, chest x-ray shows interstitial prominence but unchanged from prior. Blood pressure is improved significantly compared to what it was reading at [facility]. Patient has no neurologic symptoms. No evidence of hypertensive emergency at this time. Repeat troponin will be performed 3 hours after initial troponin. 12/02/19 04:47 Patient still asymptomatic, no evidence of anxiety. Patient states that she is having a great deal of anxiety. Feels that her anxiety is emergent and needs to immediately be evaluated by mental health. Discussed this with the patient while she was laying in bed talking to be very calmly with normal respiratory rate and heart rate. Patient states that she would like me to call the [facility]. States she talked with rn social work there who said that if she has somebody from the ER call the [facility] they will immediately send somebody to pick her up and take her to the [facility] for evaluation. Discussed with patient that at this time I do not feel she meets involuntary commitment criteria and I also do not feel would be appropriate to do an ER to ER transfer of her for her anxiety that has been going on for several years. Offered to have behavioral health evaluate her here once more and see if they could facilitate a transfer to the [facility]. Patient is agreeable to this plan. Interestingly when I discussed with her that they have tried to set her up for outpatient appointments multiple times and at that she has not met involuntary commitment criteria the last several times she has been here but she has refused to seek help on her own at an outside facility patient states that she has never been seen in by behavioral health at [facility] in the past. I discussed with her that I have read several of the notes written by behavioral health after they have seen her in consultation and she states that that is not possible because she has never seen them. Consult has been placed for behavioral health team once again. 12/02/19 04:49 Patient has been started on a clonidine patch 0.1 mg to help with anxiety and hypertension. Discussed with patient that if she stopped taking this medication abruptly it will result in market rebound hypertension and this could be quite dangerous. Patient is agreeable to trialing the patch and following up as an outpatient for a longer prescription of this if it helps. 12/02/19 05:39 Repeat troponin is negative. Patient has been medically cleared. 12/02/19 05:45 If behavioral health feels that patient is clear from a behavioral health standpoint patient may be discharged to home or they may pursue transfer to [facility] for further behavioral health assessment. I have entered a prescription for clonidine patches for the next 2 weeks so that she has enough to get her through [facility] - Vital Signs Vital signs: Temp Pulse Resp BP Pulse Ox 98.7 F 90 28 H 181/106 H 97 12/01/19 23:40 12/01/19 23:40 12/02/19 01:41 12/02/19 01:41 12/02/19 01:50 - Laboratory Result Diagrams: 12/02/19 01:43 12/02/19 01:43 Laboratory results interpreted by me: 12/02/19 12/02/19 12/02/19 01:43 01:43 01:43 RDW 14.1 H Creatine Kinase 242 H CK-MB (CK-2) 5.72 H - EKG Interpretation by Me Additional EKG results interpreted by me: 12/02/19 03:29 EKG shows sinus rhythm at a rate of 73, left axis deviation, normal intervals, normal R wave progression, no ST segment elevations or depressions, T wave inversions noted in lead III, V5, T wave flattening in aVF and V6 per my interpretation. Discharge - Discharge Clinical Impression: Anxiety Hypertension Qualifiers: Hypertension type: essential hypertension Qualified Code(s): I10 - Essential (primary) hypertension Condition: Stable Disposition: HOME, SELF-CARE Prescriptions: Clonidine [Catapres-Tts 1 (0.1 mg/24 Hr) Transderm Patch] 1 each TD ASDIR PRN #2 patch.tdwk PRN Reason: [facility]: [facility] [[facility] - Follow up as needed
[2019-12-02 01:50] VITALS: BP 181/106
[2019-12-02 01:53] LABS: ABSOLUTE BASOPHILS # (AUTO) 0.1 10^3/uL (0.0-0.2); ABSOLUTE EOSINOPHILS # (AUTO) 0.2 10^3/uL (0.0-0.6); ABSOLUTE LYMPHOCYTES (AUTO) 2.7 10^3/uL (0.5-4.7); ABSOLUTE MONOCYTES (AUTO) 0.6 10^3/uL (0.1-1.4); ABSOLUTE NEUT (AUTO) 4.5 10^3/uL (1.7-8.2); BASOPHILS % (AUTO) 1.1 % (0-2); EOSINOPHILS % (AUTO) 2.1 % (0-6); HEMATOCRIT 41.1 % (36.0-47.0); HEMOGLOBIN 13.6 g/dL (12.0-15.5); LYMPHOCYTES % (AUTO) 33.9 % (13-45); MEAN CORPUSCULAR HEMOGLOBIN 28.4 pg (27.0-33.4); MEAN CORPUSCULAR HGB CONC 33.2 g/dL (32.0-36.0); MEAN CORPUSCULAR VOLUME 86 fl (80-97); PLATELET COUNT 294 10^3/uL (150-450); RED CELL DISTRIBUTION WIDTH 14.1 % (11.5-14.0); SEGMENTED NEUTROPHILS % (AUTO) 55.9 % (42-78); TOTAL CELLS COUNTED % (AUTO) 100 %
[2019-12-02 02:25] LABS: CREATINE KINASE MB 5.72 ng/mL (<4.55)
[2019-12-02 02:27] LABS: TROPONIN I < 0.012 ng/mL
[2019-12-02 02:32] LABS: ALBUMIN 3.8 g/dL (3.5-5.0); ALKALINE PHOSPHATASE 62 U/L (38-126); ANION GAP 7 (5-19); ASPARTATE AMINO TRANSFERASE 27 U/L (14-36); BILIRUBIN,DIRECT 0.2 mg/dL (0.0-0.4); BILIRUBIN,TOTAL 0.2 mg/dL (0.2-1.3); BLOOD UREA NITROGEN 10 mg/dL (7-20); CALCIUM 9.5 mg/dL (8.4-10.2); CARBON DIOXIDE 27 mmol/L (22-30); CHLORIDE 105 mmol/L (98-107); CREATINE KINASE 242 U/L (30-135); GLUCOSE 80 mg/dL (75-110); POTASSIUM 3.8 mmol/L (3.6-5.0); TOTAL PROTEIN 6.9 g/dL (6.3-8.2)
--- NOTE | 2019-12-02 02:48 | RADIOLOGY REPORT (SQ) ---
EXAM DESCRIPTION: XR CHEST 1 VIEW COMPLETED DATE/TME: 12/02/2019 01:35 CLINICAL HISTORY: 44 years, Female, chest pain COMPARISON: November 30, 2019 NUMBER OF VIEWS: Single portable TECHNIQUE: LIMITATIONS: None. FINDINGS: Cardiac silhouette is dominant but stable. Interstitial prominence in the lungs, similar to prior. No consolidation. No effusion. No pneumothorax IMPRESSION: Interstitial prominence. No adverse change from prior copyright 2010 [employer]- All Rights Reserved
[2019-12-02] MEDS ORDERED: CLONIDINE 0.1 MG/24 HR PATCH.TDWK TD ONE (04:45)
--- NOTE | 2019-12-02 09:51 | PSYCHOLOGICAL NOTE ---
Psych Note - Psych Note Date seen by psych provider: 12/02/19 Time seen by psych provider: 09:40 Psych Note: Patient was reminded of the ban in place. Patient replied, "do you not see all these testes that they done." Patient continues that she can come to the hospital for life threatening emergencies, which she reports this ED visit was for life threatening conditions. Patient got up and walked away to the restroom. Patient was informed that [facility] was contacted. Patient replied "[facility] was, too." Impression/Plan: Patient is cleared from acute psychiatric services. Patient is banned from [facility] unless there is a life threatening emergency (Ban ). [facility] has been contacted. Dr. Nuñez was consulted on the care and management of this patient; attending physician is in agreement with recommendations and disposition.
--- NOTE | 2019-12-02 10:01 | ER Document Report ---
Doctor's Note Notes: 12/02/19 10:00 Patient evaluated. Pt is calm and cooperative. Nontoxic, well appearing. Patient was seen by behavioral health team and cleared by them. Discussed lab results, chest x-ray, and EKG with patient. Patient has a follow- up appointment with her PCP on the . Dr. Crowe wrote a prescription for her blood pressure medicine to last her until this appointment. Patient voices understanding and agrees with plan of care.
--- NOTE | 2019-12-02 19:26 | EKG REPORT ---
SEVERITY:- ABNORMAL ECG - SINUS RHYTHM BORDERLINE LEFT AXIS DEVIATION CONSIDER ANTEROSEPTAL INFARCT BORDERLINE T WAVE ABNORMALITIES : Confirmed by: Varsha Eng MD 02-Dec-2019 19:26:10
== END 2019-12-02 10:03 | disposition home or self-care (01) ==
LOC: ER 23:33
DX: R45.851 Suicidal ideations (principal); F41.9 Anxiety disorder, unspecified; I10 Essential (primary) hypertension
CPT/HCPCS: 93005; 99284; 36415; 82553; 82550; 85025; 80053; 84484; 71045; 93010; J3490

== ENCOUNTER 2019-12-06 14:50 | Emergency (ER) | payer OTHER ==
[2019-12-06] MEDS ORDERED: ASPIRIN 81 MG TABLET, CHEWABLE PO ONE (15:07)
--- NOTE | 2019-12-06 15:07 | ER Document Report ---
ED Medical Screen (RME) - General Chief Complaint: Chest Pain Stated Complaint: BLOOD PRESSURE PROBLEMS Time Seen by Provider: 12/06/19 14:58 Primary Care Provider: CARLY,MIHAELA [Primary Care Provider] - Follow up as needed Mode of Arrival: Ambulatory Information source: Patient Notes: 44-year-old female presented to ED for complaint of chest pain headache high blood pressure no numbness to her tongue dry throat. She states she went to [facility] yesterday and her blood sugar was too low around 30 they had to give her a shot and gave her a tube of something to eat. She states she has not felt like she has had low blood sugar since then. She has had a headache chest pain and high blood pressure. [facility] and they were trying to find a way to get her admitted and were not able to do so she came to the emergency room. She states she was supposed to get admitted for inpatient for anxiety so she brought her stuff with her and the [facility] told her the only way they could get her admitted was IVC and she said she was not going to lie to get admitted. I have greeted and performed a rapid initial assessment of this patient. A comprehensive ED assessment and evaluation of the patient, analysis of test results and completion of medical decision making process will be conducted by an additional ED providers. TRAVEL OUTSIDE OF THE [place] IN LAST 30 DAYS: No - Related Data Allergies/Adverse Reactions: No Known Allergies Allergy (Verified 12/06/19 14:57) Past Medical History - Past Medical History Cardiac Medical History: Reports: Hx Hypertension Renal/ Medical History: Denies: Hx Peritoneal Dialysis Psychiatric Medical History: Reports: Hx Anxiety, Hx Depression - and anxiety Past Surgical History: Reports: Hx Hysterectomy, Hx Tubal Ligation - Immunizations Immunizations up to date: Yes Hx Diphtheria, Pertussis, Tetanus Vaccination: Yes Doctor's Discharge - Discharge [facility]: [facility] [[facility] - Follow up as needed
[2019-12-06 15:38] LABS: ABSOLUTE BASOPHILS # (AUTO) 0.1 10^3/uL (0.0-0.2); ABSOLUTE EOSINOPHILS # (AUTO) 0.1 10^3/uL (0.0-0.6); ABSOLUTE LYMPHOCYTES (AUTO) 2.1 10^3/uL (0.5-4.7); ABSOLUTE MONOCYTES (AUTO) 0.3 10^3/uL (0.1-1.4); BASOPHILS % (AUTO) 1.5 % (0-2); HEMATOCRIT 41.6 % (36.0-47.0); LYMPHOCYTES % (AUTO) 27.5 % (13-45); MEAN CORPUSCULAR HEMOGLOBIN 28.8 pg (27.0-33.4); MEAN CORPUSCULAR HGB CONC 33.7 g/dL (32.0-36.0); MEAN CORPUSCULAR VOLUME 86 fl (80-97); MONOCYTES % (AUTO) 4.5 % (3-13); PLATELET COUNT 323 10^3/uL (150-450); RED BLOOD COUNT 4.87 10^6/uL (3.72-5.28); RED CELL DISTRIBUTION WIDTH 14.8 % (11.5-14.0); SEGMENTED NEUTROPHILS % (AUTO) 65.5 % (42-78); TOTAL CELLS COUNTED % (AUTO) 100 %; WHITE BLOOD COUNT 7.7 10^3/uL (4.0-10.5)
[2019-12-06 15:48] LABS: APPEARANCE,URINE CLEAR; BILIRUBIN,URINE NEGATIVE (NEGATIVE); COLOR,URINE STRAW; GLUCOSE, URINE NEGATIVE (NEGATIVE); KETONES,URINE NEGATIVE (NEGATIVE); PROTEIN,URINE NEGATIVE (NEGATIVE); URINE SPECIFIC GRAVITY 1.009; UROBILINOGEN,URINE NEGATIVE mg/dL (<2.0)
--- NOTE | 2019-12-06 16:00 | RADIOLOGY REPORT (SQ) ---
EXAM DESCRIPTION: CHEST 2 VIEWS COMPLETED DATE/TIME: 12/06/2019 3:50 pm REASON FOR STUDY: chest pain COMPARISON: 12/02/2019 EXAM PARAMETERS: NUMBER OF VIEWS: two views TECHNIQUE: Digital Frontal and Lateral radiographic views of the chest acquired. RADIATION DOSE: NA LIMITATIONS: none FINDINGS: LUNGS AND PLEURA: No opacities, masses or pneumothorax. No pleural effusion. MEDIASTINUM AND HILAR STRUCTURES: No masses or contour abnormalities. HEART AND VASCULAR STRUCTURES: Heart normal size. No evidence for failure. BONES: No acute findings. HARDWARE: None in the chest. OTHER: No other significant finding. IMPRESSION: NO ACUTE RADIOGRAPHIC FINDING IN THE CHEST. TECHNICAL DOCUMENTATION: JOB ID: [id number] [employer]- All Rights Reserved Reading location - IP/workstation name: [email or web address]
[2019-12-06 16:03] LABS: ALBUMIN 4.4 g/dL (3.5-5.0); ALKALINE PHOSPHATASE 67 U/L (38-126); ANION GAP 9 (5-19); ASPARTATE AMINO TRANSFERASE 32 U/L (14-36); BILIRUBIN,TOTAL 0.2 mg/dL (0.2-1.3); BLOOD UREA NITROGEN 10 mg/dL (7-20); CALCIUM 9.3 mg/dL (8.4-10.2); CARBON DIOXIDE 26 mmol/L (22-30); CHLORIDE 105 mmol/L (98-107); GLUCOSE 97 mg/dL (75-110); POTASSIUM 3.6 mmol/L (3.6-5.0); TOTAL PROTEIN 7.8 g/dL (6.3-8.2)
[2019-12-06 16:04] LABS: URINE AMPHETAMINES SCREEN NEGATIVE; URINE BARBITURATES SCREEN NEGATIVE; URINE BENZODIAZEPINES SCREEN NEGATIVE; URINE COCAINE SCREEN NEGATIVE; URINE MARIJUANA (THC) SCREEN NEGATIVE; URINE METHADONE SCREEN NEGATIVE; URINE PHENCYCLIDINE SCREEN NEGATIVE
--- NOTE | 2019-12-06 16:31 | EKG REPORT ---
SEVERITY:- OTHERWISE NORMAL ECG - SINUS RHYTHM BORDERLINE LEFT AXIS DEVIATION : Confirmed by: Nigel Garcia MD 06-Dec-2019 16:30:59
--- NOTE | 2019-12-06 17:04 | ER Document Report ---
ED Blood Pressure Problem - General Chief Complaint: Chest Pain Stated Complaint: BLOOD PRESSURE PROBLEMS Time Seen by Provider: 12/06/19 14:58 [facility]: [facility] [[facility]] - Follow up as needed Mode of Arrival: Ambulatory Information source: Patient TRAVEL OUTSIDE OF THE [place] IN LAST 30 DAYS: No - HPI Notes: Patient presents with several concerns. One she states she is had some sharp brief left-sided chest pain that was on and off since this morning. Nothing makes it better or worse. It is been mild and intermittent. She also states that her blood pressure has been hard to control and that she does not currently have any blood pressure medication. In addition patient states that she has been feeling anxious. Patient states she has no thoughts of suicidal or homicidal ideation. She denies auditory and visual hallucinations. - Related Data Allergies/Adverse Reactions: No Known Allergies Allergy (Verified 12/06/19 14:57) Past Medical History - General Information source: Patient - Social History Smoking Status: Current Some Day Smoker Chew tobacco use (# tins/day): No Frequency of alcohol use: None Drug Abuse: None Family History: None, Reviewed & Not Pertinent Patient has suicidal ideation: No Patient has homicidal ideation: No - Past Medical History Cardiac Medical History: Reports: Hx Hypertension Renal/ Medical History: Denies: Hx Peritoneal Dialysis Psychiatric Medical History: Reports: Hx Anxiety, Hx Depression - and anxiety Past Surgical History: Reports: Hx Hysterectomy, Hx Tubal Ligation - Immunizations Immunizations up to date: Yes Hx Diphtheria, Pertussis, Tetanus Vaccination: Yes Review of Systems - Review of Systems Constitutional: denies: Chills, Fever Cardiovascular: Chest pain. denies: Palpitations Respiratory: denies: Cough, Short of breath -: Yes All other systems reviewed and negative Physical Exam - Vital signs Vitals: Pulse Ox 99 12/06/19 15:30 Interpretation: Normal - General General appearance: Appears well, Alert - HEENT Head: Normocephalic, Atraumatic Eyes: Normal Pupils: PERRL - Respiratory Respiratory status: No respiratory distress Chest status: Nontender Breath sounds: Normal Chest palpation: Normal - Cardiovascular Rhythm: Regular Heart sounds: Normal auscultation Murmur: No - Abdominal Inspection: Normal Distension: No distension Bowel sounds: Normal Tenderness: Nontender Organomegaly: No organomegaly - Back Back: Normal, Nontender - Extremities General upper extremity: Normal inspection, Nontender, Normal color, Normal ROM, Normal temperature General lower extremity: Normal inspection, Nontender, Normal color, Normal ROM, Normal temperature, Normal weight bearing. No: Gisselle's sign - Neurological Neuro grossly intact: Yes Cognition: Normal Orientation: AAOx4 Lizeth Coma Scale Eye Opening: Spontaneous Lizeth Coma Scale Verbal: Oriented Lizeth Coma Scale Motor: Obeys Commands Thornton Coma Scale Total: 15 Speech: Normal Motor strength normal: LUE, RUE, LLE, RLE Sensory: Normal - Psychological Associated symptoms: Normal affect, Normal mood. No: Agitated, Confused, Excessive sleeping, Psychomotor agitation, Psychomotor depression, Mandaen preoccupation, Tangential speech, Visual hallucinations - Skin Skin Temperature: Warm Skin Moisture: Dry Skin Color: Normal Course - Re-evaluation Re-evalutation: 12/06/19 16:56 Patient presents with several problems. 1. She has had some brief chest pain. There is no evidence of ischemic changes on EKG her markers are not elevated. 2. Patient has some anxiety but she has no suicidal homicidal ideation. She has no psychosis. She does have a long mental health history. There is no evidence at this time that she is a threat to herself or others. I informed her that if she continues to have problems with anxiety she should consider the [facility]. She states she was aware of this and that she would consider going there. 3. Patient has uncontrolled hypertension. Patient will be given a prescription for blood pressure medication as she does not currently have 1. - Vital Signs Vital signs: Temp Pulse Resp BP Pulse Ox 99 12/06/19 15:30 - Laboratory Result Diagrams: 12/06/19 15:27 12/06/19 15:27 Laboratory results interpreted by me: 12/06/19 12/06/19 15:27 15:27 RDW 14.8 H Urine Blood SMALL H - Diagnostic Test Radiology reviewed: Image reviewed, Reports reviewed - EKG Interpretation by Me EKG shows normal: Sinus rhythm Rate: Normal - 83 Rhythm: NSR [place]/QRS: Left axis deviation Discharge - Discharge Clinical Impression: Uncontrolled hypertension, Anxiety Chest pain Qualifiers: Chest pain type: unspecified Qualified Code(s): R07.9 - Chest pain, unspecified Condition: Stable Disposition: HOME, SELF-CARE Instructions: Chest Wall Pain ([facility]), Anxiety ([facility]), High Blood Pressure, Requiring Treatment ([facility]) Additional Instructions: Please consider going to [facility] if you have further trouble with anxiety. Please take your blood pressure medicine as prescribed Please discuss cardiac stress test with your primary doctor as soon as possible. Prescriptions: Amlodipine Besylate [Norvasc 5 mg Tablet] 5 mg PO DAILY #30 tablet [facility] - Follow up tomorrow
[2019-12-06 17:34] VITALS: BP 175/102
== END 2019-12-06 17:39 | disposition home or self-care (01) ==
LOC: ER 14:50
DX: I10 Essential (primary) hypertension (principal); F41.9 Anxiety disorder, unspecified; R07.9 Chest pain, unspecified; F17.200 Nicotine dependence, unspecified, uncomplicated
CPT/HCPCS: 36415; 71046; 80053; 80307; 81001; 84484; 85025; 93005; 93010; 99284

== ENCOUNTER 2019-12-12 08:21 | Emergency (ER) | payer OTHER ==
[2019-12-12 09:18] VITALS: BP 164/92
--- NOTE | 2019-12-12 09:36 | ER Document Report ---
ED Medical Screen (RME) - General Chief Complaint: Black/Tarry Stools Stated Complaint: VOMITING BLOOD Time Seen by Provider: 12/12/19 09:29 Primary Care Provider: MIHAELA CARROLL [Primary Care Provider] - Follow up as needed TRAVEL OUTSIDE OF THE [place] IN LAST 30 DAYS: No - HPI Notes: 12/12/19 09:35 44-year-old female presents emergency room for complaints of vomiting blood approximately 2 days ago and reports dark brown stools. Patient reports she did have chest pain yesterday morning with some shortness of breath. Denies being on blood thinners. Has not tried anything [id number]. Denies any fevers or chills. Reports intermittent abdominal pain. Last bowel movement was this morning. I have greeted and performed a rapid initial assessment of this patient. A com prehensive ED assessment and evaluation of the patient, analysis of test results and completion of the medical decision making process will be conducted by additional ED providers. PHYSICAL EXAMINATION: GENERAL: Well-appearing, well-nourished and in no acute distress. NECK: Normal range of motion CV: s1, s2 regular LUNGS: No respiratory distress Musculoskeletal: Normal range of motion NEUROLOGICAL: Normal speech, normal gait. SKIN: Warm, Dry, normal turgor, no rashes or lesions noted. - Related Data Allergies/Adverse Reactions: No Known Allergies Allergy (Verified 12/12/19 09:22) Past Medical History - Past Medical History Cardiac Medical History: Reports: Hx Hypertension Renal/ Medical History: Denies: Hx Peritoneal Dialysis Psychiatric Medical History: Reports: Hx Anxiety, Hx Depression - and anxiety Past Surgical History: Reports: Hx Hysterectomy, Hx Tubal Ligation - Immunizations Immunizations up to date: Yes Hx Diphtheria, Pertussis, Tetanus Vaccination: Yes Physical Exam - Vital signs Vitals: Temp Pulse Resp BP Pulse Ox 98.6 F 82 18 164/92 H 100 12/12/19 09:17 12/12/19 09:17 12/12/19 09:17 12/12/19 09:17 12/12/19 09:17 Course - Vital Signs Vital signs: Temp Pulse Resp BP Pulse Ox 98.6 F 82 18 164/92 H 100 12/12/19 09:17 12/12/19 09:17 12/12/19 09:17 12/12/19 09:17 12/12/19 09:17 Doctor's Discharge - Discharge [facility]errals: [facility] - Follow up as needed
[2019-12-12 10:27] LABS: ABSOLUTE EOSINOPHILS # (AUTO) 0.2 10^3/uL (0.0-0.6); ABSOLUTE LYMPHOCYTES (AUTO) 2.3 10^3/uL (0.5-4.7); ABSOLUTE MONOCYTES (AUTO) 0.4 10^3/uL (0.1-1.4); ABSOLUTE NEUT (AUTO) 3.3 10^3/uL (1.7-8.2); BASOPHILS % (AUTO) 0.8 % (0-2); EOSINOPHILS % (AUTO) 3.4 % (0-6); HEMATOCRIT 39.2 % (36.0-47.0); HEMOGLOBIN 13.1 g/dL (12.0-15.5); LYMPHOCYTES % (AUTO) 36.6 % (13-45); MEAN CORPUSCULAR HEMOGLOBIN 28.7 pg (27.0-33.4); MEAN CORPUSCULAR HGB CONC 33.4 g/dL (32.0-36.0); MEAN CORPUSCULAR VOLUME 86 fl (80-97); MONOCYTES % (AUTO) 5.7 % (3-13); PLATELET COUNT 257 10^3/uL (150-450); RED BLOOD COUNT 4.56 10^6/uL (3.72-5.28); RED CELL DISTRIBUTION WIDTH 15.3 % (11.5-14.0); SEGMENTED NEUTROPHILS % (AUTO) 53.5 % (42-78); TOTAL CELLS COUNTED % (AUTO) 100 %; WHITE BLOOD COUNT 6.2 10^3/uL (4.0-10.5)
--- NOTE | 2019-12-12 10:28 | RADIOLOGY REPORT (SQ) ---
EXAM DESCRIPTION: CHEST 2 VIEWS COMPLETED DATE/TIME: 12/12/2019 10:16 am REASON FOR STUDY: coughing up blood COMPARISON: 12/06/2019 TECHNIQUE: Frontal and lateral radiographic views of the chest acquired. NUMBER OF VIEWS: Two view. LIMITATIONS: None. FINDINGS: LUNGS AND PLEURA: No opacities, masses or pneumothorax. No pleural effusion. MEDIASTINUM AND HILAR STRUCTURES: No masses or contour abnormalities. HEART AND VASCULAR STRUCTURES: Heart normal size. No evidence for failure. BONES: No acute findings. HARDWARE: None in the chest. OTHER: No other significant finding. IMPRESSION: NO SIGNIFICANT RADIOGRAPHIC FINDING IN THE CHEST. TECHNICAL DOCUMENTATION: JOB ID: [id number] [employer]- All Rights Reserved Reading location - IP/workstation name: [email or web address]
[2019-12-12 10:41] LABS: ALBUMIN 3.8 g/dL (3.5-5.0); ALKALINE PHOSPHATASE 63 U/L (38-126); ANION GAP 5 (5-19); ASPARTATE AMINO TRANSFERASE 29 U/L (14-36); BILIRUBIN,TOTAL 0.1 mg/dL (0.2-1.3); BLOOD UREA NITROGEN 11 mg/dL (7-20); CALCIUM 9.3 mg/dL (8.4-10.2); CARBON DIOXIDE 28 mmol/L (22-30); CHLORIDE 107 mmol/L (98-107); GLUCOSE 89 mg/dL (75-110); POTASSIUM 4.6 mmol/L (3.6-5.0); TOTAL PROTEIN 6.7 g/dL (6.3-8.2)
[2019-12-12 10:45] LABS: INTERNATIONAL RATION (INR) 1.06; PROTHROMBIN TIME 13.8 SEC (11.4-15.4)
[2019-12-12 10:46] LABS: PARTIAL THROMBOPLASTIN TIME 29.8 SEC (23.5-35.8)
--- NOTE | 2019-12-12 11:30 | ER Document Report ---
ED General - General Chief Complaint: Black/Tarry Stools Stated Complaint: VOMITING BLOOD Time Seen by Provider: 12/12/19 09:29 Primary Care Provider: MIHAELA CARROLL [Primary Care Provider] - Follow up as needed Mode of Arrival: Ambulatory Information source: Patient TRAVEL OUTSIDE OF THE [place] IN LAST 30 DAYS: No - HPI Notes: Patient complains of vomiting blood and having some dark stools over the last several days. She states she had some abdominal pain yesterday. It was mild and crampy. Nothing made it better or worse. It did radiate throughout her abdomen. She is has had no vomiting of blood or dark stools today. She states she does take aspirin frequently. - Related Data Allergies/Adverse Reactions: No Known Allergies Allergy (Verified 12/12/19 09:22) Past Medical History - General Information source: Patient - Social History Smoking Status: Current Every Day Smoker Frequency of alcohol use: None Drug Abuse: None Family History: None, Reviewed & Not Pertinent Patient has suicidal ideation: No Patient has homicidal ideation: No - Past Medical History Cardiac Medical History: Reports: Hx Hypertension Renal/ Medical History: Denies: Hx Peritoneal Dialysis Psychiatric Medical History: Reports: Hx Anxiety, Hx Depression - and anxiety Past Surgical History: Reports: Hx Hysterectomy, Hx Tubal Ligation - Immunizations Immunizations up to date: Yes Hx Diphtheria, Pertussis, Tetanus Vaccination: Yes Review of Systems - Review of Systems Constitutional: denies: Chills, Fever Cardiovascular: denies: Chest pain, Palpitations Respiratory: denies: Cough, Short of breath -: Yes All other systems reviewed and negative Physical Exam - Vital signs Vitals: Temp Pulse Resp BP Pulse Ox 98.6 F 82 18 164/92 H 100 12/12/19 09:17 12/12/19 09:17 12/12/19 09:17 12/12/19 09:17 12/12/19 09:17 Interpretation: Normal - General General appearance: Appears well, Alert - HEENT Head: Normocephalic, Atraumatic Eyes: Normal Pupils: PERRL - Respiratory Respiratory status: No respiratory distress Chest status: Nontender Breath sounds: Normal Chest palpation: Normal - Cardiovascular Rhythm: Regular Heart sounds: Normal auscultation Murmur: No - Abdominal Inspection: Normal Distension: No distension Bowel sounds: Normal Tenderness: Nontender Organomegaly: No organomegaly - Rectal Tenderness: No Stool: Heme negative Hemorrhoids: None - Back Back: Normal, Nontender - Extremities General upper extremity: Normal inspection, Nontender, Normal color, Normal ROM, Normal temperature General lower extremity: Normal inspection, Nontender, Normal color, Normal ROM, Normal temperature, Normal weight bearing. No: Gisselle's sign - Neurological Neuro grossly intact: Yes Cognition: Normal Orientation: AAOx4 Lizeth Coma Scale Eye Opening: Spontaneous Lizeth Coma Scale Verbal: Oriented [place] Coma Scale Motor: Obeys Commands [place] Coma Scale Total: 15 Speech: Normal Motor strength normal: LUE, RUE, LLE, RLE Sensory: Normal - Psychological Associated symptoms: Normal affect, Normal mood - Skin Skin Temperature: Warm Skin Moisture: Dry Skin Color: Normal Course - Vital Signs Vital signs: Temp Pulse Resp BP Pulse Ox 98.6 F 82 18 164/92 H 100 12/12/19 09:17 12/12/19 09:17 12/12/19 09:17 12/12/19 09:17 12/12/19 09:17 - Laboratory Result Diagrams: 12/12/19 09:59 12/12/19 09:59 Laboratory results interpreted by me: 12/12/19 12/12/19 09:59 09:59 RDW 15.3 H Total Bilirubin 0.1 L Discharge - Discharge Clinical Impression: History of hematemesis Abdominal pain Qualifiers: Abdominal location: generalized Qualified Code(s): R10.84 - Generalized abdominal pain Condition: Stable Disposition: HOME, SELF-CARE Instructions: Abdominal Pain ([facility]) [facility]errals: [facility] [Primary Care Provider] - 12/12/19
--- NOTE | 2019-12-13 14:28 | EKG REPORT ---
SEVERITY:- ABNORMAL ECG - SINUS RHYTHM ABNRM R PROG, CONSIDER ASMI OR LEAD PLACEMENT BORDERLINE T WAVE ABNORMALITIES : Confirmed by: Jose Juan Crouch 13-Dec-2019 14:27:51
== END 2019-12-12 11:33 | disposition home or self-care (01) ==
LOC: ER 08:21
DX: R10.84 Generalized abdominal pain (principal); K92.0 Hematemesis; R19.5 Other fecal abnormalities; R10.9 Unspecified abdominal pain; Z79.82 Long term (current) use of aspirin; F17.200 Nicotine dependence, unspecified, uncomplicated; I10 Essential (primary) hypertension
CPT/HCPCS: 36415; 71046; 80053; 83690; 84484; 85025; 85610; 85730; 93005; 93010; 99284

== ENCOUNTER 2020-01-24 04:32 | Emergency (ER) | payer OTHER ==
[2020-01-24] MEDS ORDERED: LOSARTAN POTASSIUM 25 MG TABLET PO ONE (05:24)
--- NOTE | 2020-01-24 05:26 | ER Document Report ---
ED Medical Screen (RME) - General Chief Complaint: Chest Pain Stated Complaint: Chest Pain Time Seen by Provider: 01/24/20 05:24 Primary Care Provider: MIHAELA CARROLL [Primary Care Provider] - Follow up as needed Notes: 44-year-old female with chief complaint of left-sided chest pain, states that she has been having this intermittently for 1 week, she states the pain makes her short of breath. She states when she stretches her chest feels like it pops and it relieves it for a while. She denies history of [place], she is supposed to be on losartan 25 mg daily for blood pressure. She states she took first 324 mg of aspirin and then an additional 162 mg of aspirin before coming in. She denies medical history otherwise. She denies any other complaints to me. TRAVEL OUTSIDE OF THE [place] IN LAST 30 DAYS: No - Related Data Allergies/Adverse Reactions: No Known Allergies Allergy (Verified 12/12/19 09:22) Home Medications: Losartan Past Medical History - Social History Chew tobacco use (# tins/day): No Frequency of alcohol use: None Drug Abuse: None - Past Medical History Cardiac Medical History: Reports: Hx Hypertension Renal/ Medical History: Denies: Hx Peritoneal Dialysis Psychiatric Medical History: Reports: Hx Anxiety, Hx Depression - and anxiety Past Surgical History: Reports: Hx Hysterectomy, Hx Tubal Ligation - Immunizations Immunizations up to date: Yes Hx Diphtheria, Pertussis, Tetanus Vaccination: Yes Physical Exam - Vital signs Vitals: Temp Pulse Resp BP Pulse Ox 98.6 F 94 19 172/105 H 100 01/24/20 04:50 01/24/20 04:50 01/24/20 04:50 01/24/20 04:50 01/24/20 04:50 - Respiratory Respiratory status: No respiratory distress Breath sounds: Normal - Cardiovascular Rhythm: Regular. No: Tachycardia Heart sounds: Normal auscultation, S1 appreciated, S2 appreciated Course - Re-evaluation Re-evalutation: I have greeted and performed a rapid initial assessment of this patient. A comprehensive ED assessment and evaluation of the patient, analysis of test results and completion of the medical decision making process will be conducted by additional ED providers. - Vital Signs Vital signs: Temp Pulse Resp BP Pulse Ox 98.6 F 94 19 172/105 H 100 01/24/20 04:50 01/24/20 04:50 01/24/20 04:50 01/24/20 04:50 01/24/20 04:50 Doctor's Discharge - Discharge [facility]errals: [facility] [[facility]] - Follow up as needed
--- NOTE | 2020-01-24 06:29 | ER Document Report ---
ED General - General Chief Complaint: Chest Pain Stated Complaint: Chest Pain Time Seen by Provider: 01/24/20 05:24 Primary Care Provider: CARLY,MIHAELA [Primary Care Provider] - Follow up as needed TRAVEL OUTSIDE OF THE [place] IN LAST 30 DAYS: No - HPI Notes: Chief complaint: Chest pain 44-year-old female presenting for evaluation of chest pain. Longstanding history of hypertension with poor compliance and major depression. Frequent ED visits for wide variety of complaints including chest pain. Patient currently reports discomfort intermittently for approximately 1 week. D escribed as a sharp popping sensation sometimes aggravated by movement or taking a deep breath. Also aggravated by turning onto the right side or touching anterior portion of the chest. Pain is nonradiating. No associated dyspnea, nausea, vomiting or diaphoresis no history of CAD, diabetes, hyperlipidemia or thromboembolic disease. Family history negative for CAD. Denies use cocaine. HEART Score: HISTORY 0 ECG 0 AGE 1 RISK FACTORS 1 TROPONIN 0 TOTAL: 3 If HEART score is = 3 AND both tronponin measurments are normal, the 30 day risk of a major adverse cardiac event (all-cause mortality, myocardia infarction or need for coronary revscularization) is < 1% (Sensitivity 100%, NPV 100%). - Related Data Allergies/Adverse Reactions: No Known Allergies Allergy (Verified 12/12/19 09:22) Home Medications: Losartan Past Medical History - General Information source: Patient - Social History Smoking Status: Current Every Day Smoker Chew tobacco use (# tins/day): No Frequency of alcohol use: None Drug Abuse: None Family History: None, Reviewed & Not Pertinent Patient has suicidal ideation: No Patient has homicidal ideation: No - Past Medical History Cardiac Medical History: Reports: Hx Hypertension Renal/ Medical History: Denies: Hx Peritoneal Dialysis Psychiatric Medical History: Reports: Hx Anxiety, Hx Depression - and anxiety Past Surgical History: Reports: Hx Hysterectomy, Hx Tubal Ligation - Immunizations Immunizations up to date: Yes Hx Diphtheria, Pertussis, Tetanus Vaccination: Yes Review of Systems - Review of Systems Notes: Constitutional: Negative for fever. HENT: Negative for sore throat. Eyes: Negative for visual changes. Cardiovascular: As per HPI. Respiratory: Negative for shortness of breath. Gastrointestinal: Negative for abdominal pain, vomiting or diarrhea. Genitourinary: Negative for dysuria. Musculoskeletal: Negative for back pain. Skin: Negative for rash. Neurological: Negative for headaches, weakness or numbness. 10 point ROS negative except as marked above and in HPI. Physical Exam - Vital signs Vitals: Temp Pulse Resp BP Pulse Ox 98.6 F 94 19 172/105 H 100 01/24/20 04:50 01/24/20 04:50 01/24/20 04:50 01/24/20 04:50 01/24/20 04:50 - Notes Notes: GENERAL: Well-developed well-nourished appearing in no acute distress. SKIN: Good turgor no rashes. HEAD: Normocephalic atraumatic. EYES: PERRLA. EOMI. Conjunctivae and sclerae clear. EARS: CANALS AND TMS CLEAR. NOSE: CLEAR. MOUTH: Moist mucosa. Good dentition. No stridor or edema. No drooling. NECK: Supple. No masses or thyromegaly. No adenopathy. Carotids 2+ without bruits. No JVD. BACK: Symmetrical without tenderness. CHEST: Palpation of right anterior chest wall EXACTLY reproduces discomfort. Respirations unlabored. Breath sounds clear and symmetrical. HEART: Regular rhythm. No murmur gallop or rub. ABDOMEN: Soft nontender without masses, organomegaly or rebound. Bowel sounds normally active. No bruits. GENITALIA: Deferred. EXTREMITIES: No edema. No calf tenderness. Cap refill less than 1.5 seconds. Dorsalis pedis and posterior tibial pulses 3+ and symmetrical. NEUROLOGICAL: GCS 15. Alert and oriented x3. Normal gait. Fluent speech. Cranial nerves II through XII intact. Sensorimotor and cerebellar normal. Normal tone. PSYCHIATRIC: Appropriate affect. Course - Vital Signs Vital signs: Temp Pulse Resp BP Pulse Ox 98.6 F 94 18 126/81 H 100 01/24/20 04:50 01/24/20 04:50 01/24/20 09:01 01/24/20 09:00 01/24/20 09:01 - Laboratory Result Diagrams: 01/24/20 06:50 01/24/20 06:50 Laboratory results interpreted by me: 01/24/20 06:50 RDW 14.8 H - EKG Interpretation by Me Additional EKG results interpreted by me: 01/24/20 06:30 Twelve-lead EKG from 0522 hrs. is reviewed by me contemporaneously showing a normal sinus rhythm with a rate of 74 QRS axis -10 degrees normal intervals and no acute ST changes. There are some changes suggestive of LVH similar to those noted on prior tracings. Discharge - Discharge Clinical Impression: Chest pain Disposition: HOME, SELF-CARE [facility]errals: [facility] [Primary [facility]] - Follow up as needed
[2020-01-24 07:01] LABS: ABSOLUTE BASOPHILS # (AUTO) 0.1 10^3/uL (0.0-0.2); ABSOLUTE EOSINOPHILS # (AUTO) 0.1 10^3/uL (0.0-0.6); ABSOLUTE LYMPHOCYTES (AUTO) 2.9 10^3/uL (0.5-4.7); ABSOLUTE MONOCYTES (AUTO) 0.6 10^3/uL (0.1-1.4); ABSOLUTE NEUT (AUTO) 6.4 10^3/uL (1.7-8.2); BASOPHILS % (AUTO) 1.4 % (0-2); EOSINOPHILS % (AUTO) 1.4 % (0-6); HEMATOCRIT 42.2 % (36.0-47.0); HEMOGLOBIN 14.1 g/dL (12.0-15.5); LYMPHOCYTES % (AUTO) 28.6 % (13-45); MEAN CORPUSCULAR HEMOGLOBIN 28.7 pg (27.0-33.4); MEAN CORPUSCULAR HGB CONC 33.4 g/dL (32.0-36.0); MEAN CORPUSCULAR VOLUME 86 fl (80-97); MONOCYTES % (AUTO) 5.9 % (3-13); PLATELET COUNT 251 10^3/uL (150-450); RED BLOOD COUNT 4.91 10^6/uL (3.72-5.28); RED CELL DISTRIBUTION WIDTH 14.8 % (11.5-14.0); SEGMENTED NEUTROPHILS % (AUTO) 62.7 % (42-78); TOTAL CELLS COUNTED % (AUTO) 100 %; WHITE BLOOD COUNT 10.1 10^3/uL (4.0-10.5)
--- NOTE | 2020-01-24 07:18 | RADIOLOGY REPORT (SQ) ---
Chest one view on 01/24/2020 at 6:00 AM CLINICAL INDICATION: Chest pain COMPARISON: 12/12/2019 FINDINGS: The lungs are clear. Cardiac, hilar and mediastinal contours are within normal limits. Pulmonary vascularity is within normal limits. No bony abnormality is noted. IMPRESSION: No active disease.
[2020-01-24 07:20] LABS: ANION GAP 9 (5-19); BLOOD UREA NITROGEN 12 mg/dL (7-20); CALCIUM 8.9 mg/dL (8.4-10.2); CARBON DIOXIDE 23 mmol/L (22-30); CHLORIDE 107 mmol/L (98-107); GLUCOSE 88 mg/dL (75-110)
[2020-01-24 09:48] VITALS: BP 126/81
--- NOTE | 2020-01-24 17:26 | EKG REPORT ---
SEVERITY:- ABNORMAL ECG - SINUS RHYTHM PROBABLE LEFT VENTRICULAR HYPERTROPHY : Confirmed by: Jose Juan Crouch 24-Jan-2020 17:25:27
== END 2020-01-24 11:18 | disposition home or self-care (01) ==
LOC: ER 04:32
DX: R07.9 Chest pain, unspecified (principal); I10 Essential (primary) hypertension; F17.200 Nicotine dependence, unspecified, uncomplicated
CPT/HCPCS: 36415; 71045; 80048; 84484; 85025; 93005; 93010; 99285

== ENCOUNTER 2020-01-25 19:07 | Emergency (ER) | payer OTHER ==
[2020-01-25 19:31] VITALS: BP 191/114
--- NOTE | 2020-01-25 20:56 | ER Document Report ---
ED Medical Screen (RME) - General Chief Complaint: Chest Pain Stated Complaint: CHEST PAIN, NAUSEA, VERTIGO Time Seen by Provider: 01/25/20 20:44 Primary Care Provider: MIHAELA CARROLL [Primary Care Provider] - Follow up as needed Information source: Patient Notes: This is a 44-year-old female presents to the emergency room today stating that she is got left-sided chest pain which is been ongoing for roughly a week she was here last night signed out AMA and came back this evening because she would like further evaluation. TRAVEL OUTSIDE OF THE [place] IN LAST 30 DAYS: No - Related Data Allergies/Adverse Reactions: No Known Allergies Allergy (Verified 01/25/20 20:40) Past Medical History - Social History Chew tobacco use (# tins/day): No Frequency of alcohol use: None Drug Abuse: None - Past Medical History Cardiac Medical History: Reports: Hx Hypertension Renal/ Medical History: Denies: Hx Peritoneal Dialysis Psychiatric Medical History: Reports: Hx Anxiety, Hx Depression - and anxiety Past Surgical History: Reports: Hx Hysterectomy, Hx Tubal Ligation - Immunizations Immunizations up to date: Yes Hx Diphtheria, Pertussis, Tetanus Vaccination: Yes Physical Exam - Vital signs Vitals: Temp Pulse Resp BP Pulse Ox 98.6 F 79 20 191/114 H 100 01/25/20 19:30 01/25/20 19:30 01/25/20 19:30 01/25/20 19:30 01/25/20 19:30 - Cardiovascular Rhythm: Regular Heart sounds: Normal auscultation Murmur: No Course - Vital Signs Vital signs: Temp Pulse Resp BP Pulse Ox 98.6 F 79 20 191/114 H 100 01/25/20 19:30 01/25/20 19:30 01/25/20 19:30 01/25/20 19:30 01/25/20 19:30 Doctor's Discharge - Discharge Referrals: [facility] [Primary Care Provider] - Follow up as needed
[2020-01-25 21:37] LABS: ABSOLUTE BASOPHILS # (AUTO) 0.1 10^3/uL (0.0-0.2); ABSOLUTE EOSINOPHILS # (AUTO) 0.2 10^3/uL (0.0-0.6); ABSOLUTE MONOCYTES (AUTO) 0.5 10^3/uL (0.1-1.4); EOSINOPHILS % (AUTO) 1.9 % (0-6); HEMATOCRIT 42.4 % (36.0-47.0); HEMOGLOBIN 14.3 g/dL (12.0-15.5); LYMPHOCYTES % (AUTO) 34.4 % (13-45); MEAN CORPUSCULAR HEMOGLOBIN 28.8 pg (27.0-33.4); MEAN CORPUSCULAR HGB CONC 33.7 g/dL (32.0-36.0); MEAN CORPUSCULAR VOLUME 85 fl (80-97); MONOCYTES % (AUTO) 5.2 % (3-13); PLATELET COUNT 276 10^3/uL (150-450); RED BLOOD COUNT 4.96 10^6/uL (3.72-5.28); RED CELL DISTRIBUTION WIDTH 15.1 % (11.5-14.0); SEGMENTED NEUTROPHILS % (AUTO) 57.5 % (42-78); TOTAL CELLS COUNTED % (AUTO) 100 %; WHITE BLOOD COUNT 8.7 10^3/uL (4.0-10.5)
--- NOTE | 2020-01-25 21:38 | RADIOLOGY REPORT (SQ) ---
EXAM DESCRIPTION: XR CHEST 1 VIEW COMPLETED DATE/TME: 01/25/2020 20:55 CLINICAL HISTORY: 44 years, Female, cp COMPARISON: Multiple priors, most recent from 01/24/2020 NUMBER OF VIEWS: One TECHNIQUE: Single frontal view of the chest was obtained LIMITATIONS: None. FINDINGS: Cardiac and mediastinal contours are normal in appearance. Lungs are clear. No pleural effusion or pneumothorax. IMPRESSION: No acute disease. copyright 2010 [employer]- All Rights Reserved
[2020-01-25 21:57] LABS: ALBUMIN 4.2 g/dL (3.5-5.0); ALKALINE PHOSPHATASE 64 U/L (38-126); ANION GAP 11 (5-19); ASPARTATE AMINO TRANSFERASE 24 U/L (14-36); BILIRUBIN,DIRECT 0.2 mg/dL (0.0-0.4); BILIRUBIN,TOTAL 0.3 mg/dL (0.2-1.3); BLOOD UREA NITROGEN 10 mg/dL (7-20); CALCIUM 9.3 mg/dL (8.4-10.2); CARBON DIOXIDE 23 mmol/L (22-30); CHLORIDE 105 mmol/L (98-107); CREATINE KINASE 306 U/L (30-135); GLUCOSE 71 mg/dL (75-110); POTASSIUM 3.4 mmol/L (3.6-5.0); TOTAL PROTEIN 7.7 g/dL (6.3-8.2)
[2020-01-25 22:09] LABS: CREATINE KINASE MB 4.86 ng/mL (<4.55); TROPONIN I 0.012 ng/mL
--- NOTE | 2020-01-25 23:00 | ER Document Report ---
ED General - General Chief Complaint: Chest Pain Stated Complaint: CHEST PAIN, NAUSEA, VERTIGO Time Seen by Provider: 01/25/20 20:44 Primary Care Provider: MIHAELA CARROLL [Primary Care Provider] - Follow up as needed Notes: 44-year-old female presents emergency department complaining of intermittent left-sided chest tightness for the past week. Patient states the chest tightness is actually underneath her left arm and does not radiate to her arm. States that is been getting progressively worse but she can pop it by rolling her shoulders back and forth and then the pain will resolve. There is no change with exertion. She has never had pain similar to this. She does have occasional shortness with breath with this but states that after she pops her chest she feels like she can breathe normally. Denies any personal or family cardiac history. TRAVEL OUTSIDE OF THE [place] IN LAST 30 DAYS: No - Related Data Allergies/Adverse Reactions: No Known Allergies Allergy (Verified 01/25/20 20:40) Past Medical History - General Information source: Patient - Social History Smoking Status: Current Every Day Smoker Chew tobacco use (# tins/day): No Frequency of alcohol use: None Drug Abuse: None Family History: None, Reviewed & Not Pertinent. denies: CAD, CVA Patient has suicidal ideation: No Patient has homicidal ideation: No - Past Medical History Cardiac Medical History: Reports: Hx Hypertension Renal/ Medical History: Denies: Hx Peritoneal Dialysis Psychiatric Medical History: Reports: Hx Anxiety, Hx Depression - and anxiety Past Surgical History: Reports: Hx Hysterectomy, Hx Tubal Ligation - Immunizations Immunizations up to date: Yes Hx Diphtheria, Pertussis, Tetanus Vaccination: Yes Review of Systems - Review of Systems Constitutional: No symptoms reported Cardiovascular: See HPI, Chest pain Respiratory: See HPI Musculoskeletal: See HPI -: Yes All other systems reviewed and negative Physical Exam - Vital signs Vitals: Temp Pulse Resp BP Pulse Ox 98.6 F 79 20 191/114 H 100 01/25/20 19:30 01/25/20 19:30 01/25/20 19:30 01/25/20 19:30 01/25/20 19:30 Interpretation: Hypertensive - Notes Notes: GENERAL: Alert, interacts well. No acute distress. HEAD: Normocephalic, atraumatic EYES: Pupils equal, round and reactive to light, extraocular movements intact. ENT: Oral mucosa moist, tongue midline. NECK: Full range of motion, supple, trachea midline. LUNGS: Clear to auscultation bilaterally, no wheezes, rales or rhonchi, no respiratory distress. Chest pain is no longer reproducible. Patient does indicate that the pain is worst in the midaxillary line on the left at approximately the level of T6. No rashes noted. HEART: Regular rate and rhythm, no murmurs, gallops, rubs. ABDOMEN: Soft, nontender, nondistended, bowel sounds present in all 4 quadrants. EXTREMITIES: Moves all 4 extremities spontaneously, no edema, radial and dorsalis pedis pulses 2/4 bilaterally. No cyanosis. NEUROLOGICAL: Alert and oriented x3, normal speech. PSYCH: Normal mood, normal affect. SKIN: Warm, Dry, normal turgor, no rashes or lesions noted. Course - Re-evaluation Re-evalutation: 01/25/20 23:46 CBC unremarkable, CMP shows slight low potassium at 3.4, troponin is again negative, initial troponin have been performed on 01/24/2020 at 6:50 AM. Patient states that they did want to do a second troponin but states she left. States she returned today because she was worried she may have missed something by not doing the second troponin. EKG remains nonischemic. Chest x-ray is unremarkable. Given that she is low risk based off of the heart score (heart score of 2, one-point for age and at 1 point for hypertension and smoking) 2- troponins and a normal EKG x2 are sufficient to rule out MACE and ACS. Patient will be discharged home. I suspect this more likely represents intercostal muscle spasm. Patient will be started on Flexeril and Lidoderm patches, [facility] 01/25/20 23:48 Chest X-Ray 01/25/20 20:55 IMPRESSION: No acute disease. copyright 2010 [employer]- All Rights Reserved - Vital Signs Vital signs: Temp Pulse Resp BP Pulse Ox 98.6 F 79 20 191/114 H 100 01/25/20 19:30 01/25/20 19:30 01/25/20 19:30 01/25/20 19:30 01/25/20 19:30 - Laboratory Result Diagrams: 01/25/20 19:25 01/25/20 19:25 Laboratory results interpreted by me: 01/25/20 01/25/20 01/25/20 19:25 19:25 19:25 RDW 15.1 H Potassium 3.4 L Glucose 71 L Creatine Kinase 306 H CK-MB (CK-2) 4.86 H - EKG Interpretation by Me Additional EKG results interpreted by me: 01/25/20 23:00 EKG shows sinus rhythm at a rate of 77, left axis deviation, normal intervals, T wave inversions in lead III, no ST segment elevations or depressions, somewhat slow R wave progression per my interpretation. Discharge - Discharge Clinical Impression: Intercostal muscle spasm Chest pain Qualifiers: Chest pain type: intercostal pain Qualified Code(s): R07.82 - Intercostal pain Condition: Stable Disposition: HOME, SELF-CARE Additional Instructions: Chest Wall Pain Your chest pain has been diagnosed as coming from the chest wall. It is most likely muscle spasm between your ribs on the left. Rest from strenuous physical activity. This kind of chest pain is usually made worse by movement of the chest. I have prescribed Lidoderm patches which are topical numbing medication, Flexeril which is a muscle relaxer and I would like you to use ibuprofen and acetaminophen. Please use ibuprofen (Motrin or Advil) 600-800 mg every 8 hours as needed for pain or fever. You may also use acetaminophen (Tylenol) 1000 mg every 4-6 hours as needed for pain or fever. Please be aware that many medications contain acetaminophen, do not exceed a total of 1000 mg of acetaminophen every 6 hours. If the pain is new, and seems to be due to muscle strain, cold packs can help. Otherwise, apply gentle warmth to the painful area for 15 minutes every hour or two. You should contact the doctor immediately if things change. Further evaluation is needed if you develop a fever or cough, if the nature of the pain changes, or if you become short of breath. Prescriptions: Cyclobenzaprine HCl [Flexeril 10 mg Tablet] 10 mg PO TIDP PRN #15 tab PRN Reason: Lidocaine [Lidoderm 5% (700 mg) Transdermal Patch] 1 patch TP DAILY #20 adh..patch [facility]errals: [facility] [Primary [facility]] - Follow up as needed
[2020-01-25] MEDS ORDERED: CYCLOBENZAPRINE HCL 10 MG TABLET PO ONE (23:43)
[2020-01-25] MEDS ORDERED: LIDOCAINE 5% (700 MG) TRANSDERMAL ADH..PATCH TP ONE (23:43)
--- NOTE | 2020-01-26 18:20 | EKG REPORT ---
SEVERITY:- BORDERLINE ECG - SINUS RHYTHM LVH BY VOLTAGE : Confirmed by: Jose Juan Crouch 26-Jan-2020 18:19:50
--- NOTE | 2020-01-29 00:37 | EKG REPORT ---
SEVERITY:- BORDERLINE ECG - SINUS RHYTHM BORDERLINE T ABNORMALITIES, ANT-LAT LEADS : Confirmed by: Jose Juan Crouch 29-Jan-2020 00:36:54
== END 2020-01-25 23:58 | disposition home or self-care (01) ==
LOC: ER 19:07
DX: M62.838 Other muscle spasm (principal); R07.82 Intercostal pain; R06.02 Shortness of breath; F17.200 Nicotine dependence, unspecified, uncomplicated; I10 Essential (primary) hypertension
CPT/HCPCS: 36415; 71045; 80053; 82550; 82553; 84484; 85025; 93005; 93010; 99285

== ENCOUNTER 2020-01-26 01:25 | Emergency (ER) | payer OTHER ==
--- NOTE | 2020-01-26 06:10 | ER Document Report ---
ED General - General Chief Complaint: Headache Stated Complaint: HEADACHE,DIZZINESS Time Seen by Provider: 01/26/20 05:48 Primary Care Provider: GEOVANY MCCLELLAND MD [ACTIVE STAFF] - Follow up in 1 week [facility] [Primary Care Provider] - Follow up in 3-5 days Notes: 44-year-old female presents for chest pain. Patient was seen in this ER earlier today for the same complaint and had a work-up which included a negative t roponin. Patient denies any headache, dyspnea, fever. TRAVEL OUTSIDE OF THE [place] IN LAST 30 DAYS: No - Related Data Allergies/Adverse Reactions: No Known Allergies Allergy (Verified 01/26/20 01:32) Home Medications: losartan. hysar Past Medical History - Social History Smoking Status: Current Every Day Smoker Frequency of alcohol use: None Drug Abuse: None Family History: None, Reviewed & Not Pertinent. denies: CAD, CVA Patient has suicidal ideation: No Patient has homicidal ideation: No - Past Medical History Cardiac Medical History: Reports: Hx Hypertension Renal/ Medical History: Denies: Hx Peritoneal Dialysis Psychiatric Medical History: Reports: Hx Anxiety, Hx Depression - and anxiety Past Surgical History: Reports: Hx Hysterectomy, Hx Tubal Ligation - Immunizations Immunizations up to date: Yes Hx Diphtheria, Pertussis, Tetanus Vaccination: Yes Review of Systems - Review of Systems Notes: Constitutional: Negative for fever. HENT: Negative for sore throat. Eyes: Negative for visual changes. Cardiovascular: Positive for chest pain. Respiratory: Negative for shortness of breath. Gastrointestinal: Negative for abdominal pain, vomiting or diarrhea. Genitourinary: Negative for dysuria. Musculoskeletal: Negative for back pain. Skin: Negative for rash. Neurological: Negative for headaches, weakness or numbness. 10 point ROS negative except as marked above and in HPI. Physical Exam - Vital signs Vitals: Temp Pulse Resp BP Pulse Ox 99.0 F 86 20 173/114 H 99 01/26/20 01:29 01/26/20 01:29 01/26/20 01:29 01/26/20 01:29 01/26/20 01:29 - Notes Notes: GENERAL: Well-appearing, well-nourished and in no acute distress. HEAD: Atraumatic, normocephalic. EYES: Extraocular movements intact, sclera anicteric, conjunctiva are normal. NECK: Normal range of motion, supple without lymphadenopathy or JVD. LUNGS: Breath sounds clear to auscultation bilaterally and equal. No wheezes rales or rhonchi. HEART: Regular rate and rhythm without murmurs, rubs or gallops. EXTREMITIES: Normal range of motion, no pitting or edema. No clubbing or cyanosis. NEUROLOGICAL: Cranial nerves II through XII grossly intact. Normal speech, normal gait. PSYCH: Normal mood, normal affect. SKIN: Warm, Dry, normal turgor, no rashes or lesions noted. Course - Re-evaluation Re-evalutation: 01/26/20 nontoxic, well-appearing 44-year-old female who is well-known to this ER presents for left-sided chest pain. Patient was seen earlier today for the same complaint and had a work-up which included a negative troponin. Discussed all this with patient. Return precautions given. Patient given follow-up with manager hospitality and her primary care doctor. Patient voices understanding and agrees with plan of care. - Vital Signs Vital signs: Temp Pulse Resp BP Pulse Ox 99.0 F 86 20 173/114 H 99 01/26/20 01:29 01/26/20 01:29 01/26/20 01:29 01/26/20 01:29 01/26/20 01:29 Discharge - Discharge Clinical Impression: Chest pain Qualifiers: Chest pain type: unspecified Qualified Code(s): R07.9 - Chest pain, unspecified Condition: Stable Disposition: HOME, SELF-CARE Instructions: Chest Pain of Unclear Cause ([facility]) Additional Instructions: You were seen earlier in the ER for chest pain. Your workup was reassuring. Please follow up with your primary care doctor in 3-5 days. Follow up with manager hospitality listed in 1 week. Return to ER for any worsening symptoms, including worsening chest pain, shortness of breath, fever, nausea/vomiting, neck stiffness, confusion, dizziness, or any other symptoms that are concerning to you. Referrals: [facility] [Primary Care [facility]] - Follow up in 3-5 days GEOVANY MCCLELLAND MD [ACTIVE STAFF] - Follow up in 1 week
[2020-01-26 06:42] VITALS: BP 147/96
== END 2020-01-26 06:59 | disposition home or self-care (01) ==
LOC: ER 01:25
DX: R07.9 Chest pain, unspecified (principal); R51 Headache; R42 Dizziness and giddiness; F17.200 Nicotine dependence, unspecified, uncomplicated; I10 Essential (primary) hypertension
CPT/HCPCS: 99283

== ENCOUNTER 2020-01-27 01:37 | Emergency (ER) | payer OTHER ==
[2020-01-27] MEDS ORDERED: MECLIZINE HCL 25 MG TABLET PO ONE (03:59)
--- NOTE | 2020-01-27 03:59 | ER Document Report ---
ED General - General Chief Complaint: Dizziness Stated Complaint: HEAD PAIN Time Seen by Provider: 01/27/20 03:22 Primary Care Provider: MI[facility]EL[facility] CARROLL [Primary Care Provider] - Follow up as needed Notes: 44-year-old female who is well-known to this ER presents for dizziness that feels like she is swaying back and forth. Patient states she has a history of vertigo. Patient denies any chest pain or dyspnea. Patient denies any presyncope or syncope. TRAVEL OUTSIDE OF THE [place] IN LAST 30 DAYS: No - Related Data Allergies/Adverse Reactions: No Known Allergies Allergy (Verified 01/26/20 01:32) Home Medications: hyzaar, losartan, low dose asa Past Medical History - Social History Smoking Status: Current Every Day Smoker Family History: None, Reviewed & Not Pertinent. denies: CAD, CVA Patient has suicidal ideation: No Patient has homicidal ideation: No - Past Medical History Cardiac Medical History: Reports: Hx Hypertension Renal/ Medical History: Denies: Hx Peritoneal Dialysis Psychiatric Medical History: Reports: Hx Anxiety, Hx Depression - and anxiety Past Surgical History: Reports: Hx Hysterectomy, Hx Tubal Ligation - Immunizations Immunizations up to date: Yes Hx Diphtheria, Pertussis, Tetanus Vaccination: Yes Review of Systems - Review of Systems Notes: Constitutional: Negative for fever. HENT: Negative for sore throat. Eyes: Negative for visual changes. Cardiovascular: Negative for chest pain. Respiratory: Negative for shortness of breath. Gastrointestinal: Negative for abdominal pain, vomiting or diarrhea. Genitourinary: Negative for dysuria. Musculoskeletal: Negative for back pain. Skin: Negative for rash. Neurological: Positive for dizziness. Negative for headaches, weakness or numbness. 10 point ROS negative except as marked above and in HPI. Physical Exam - Vital signs Vitals: Temp Pulse Resp BP Pulse Ox 97.4 F 78 18 174/105 H 100 01/27/20 01:47 01/27/20 01:47 01/27/20 01:47 01/27/20 01:47 01/27/20 01:47 - Notes Notes: GENERAL: Well-appearing, well-nourished and in no acute distress. HEAD: Atraumatic, normocephalic. EYES: Extraocular movements intact, sclera anicteric, conjunctiva are normal. NECK: Normal range of motion, supple without lymphadenopathy or JVD. EXTREMITIES: Normal range of motion, no pitting or edema. No clubbing or cyanosis. NEUROLOGICAL: Cranial nerves II through XII grossly intact. Normal speech, normal gait. PSYCH: Normal mood, normal affect. SKIN: Warm, Dry, normal turgor, no rashes or lesions noted. Course - Re-evaluation Re-evalutation: 01/27/20 nontoxic, well-appearing female presents with vertigo type symptoms. Patient states she has a history of vertigo. Neuro grossly intact. PE is otherwise unremarkable. Patient is resting comfortably without difficulty. Patient given dose of meclizine and prescription for same with referral back to her PCP. Return precautions given. All questions/concerns addressed prior to discharge. - Vital Signs Vital signs: Temp Pulse Resp BP Pulse Ox 97.4 F 78 18 174/105 H 100 01/27/20 01:47 01/27/20 01:47 01/27/20 01:47 01/27/20 01:47 01/27/20 01:47 Discharge - Discharge Clinical Impression: Vertigo Condition: Stable Disposition: HOME, SELF-CARE Instructions: Vertigo ([facility]), Meclizine ([facility]) Additional Instructions: Please take meclizine as prescribed. Please follow-up with your primary care doctor in 3 to 5 days. Return to ER for any worsening symptoms, including feeling like he can pass out, passing out, nausea/vomiting, fever, abdominal pain, chest pain, shortness of breath, confusion, weakness, numbness, or any other symptoms that are concerning to you. Prescriptions: Meclizine HCl [Antivert 25 mg Tablet] 25 mg PO TID PRN #21 tablet PRN Reason: Referrals: [facility] [Primary Care [facility]] - Follow up in 3-5 days
[2020-01-27 04:47] VITALS: BP 139/84
== END 2020-01-27 04:48 | disposition home or self-care (01) ==
LOC: ER 01:37
DX: R42 Dizziness and giddiness (principal); I10 Essential (primary) hypertension; F17.200 Nicotine dependence, unspecified, uncomplicated; Z79.899 Other long term (current) drug therapy; Z79.82 Long term (current) use of aspirin
CPT/HCPCS: 99283

== ENCOUNTER 2020-01-27 04:31 | Emergency (ER) | payer OTHER ==
[2020-01-27 07:19] VITALS: BP 159/100
--- NOTE | 2020-01-29 07:29 | ER Document Report ---
Entered by SHAINA MIR SCRIBE 01/27/20 0652 Acting as scribe for:DANTE SANCHEZ MD ED General - General Chief Complaint: Headache Stated Complaint: HEADACHE Time Seen by Provider: 01/27/20 06:14 Primary Care Provider: NITHYA BOSCH MD [Primary Care Provider] - Follow up as needed Information source: Patient Notes: This 44 year old female patient presents to the emergency department today with vertigo. Patient states she has had vertigo in the past and does not take any medications for it. Patient states she feels like she is "under water" and that this is different than before. Patient states she did not take her medication for hypertension this morning. Patient denies symptoms of a headache, runny nose, or sore throat. Patient states there is some ringing in her ears. TRAVEL OUTSIDE OF THE [place] IN LAST 30 DAYS: No - Related Data Allergies/Adverse Reactions: No Known Allergies Allergy (Verified 01/26/20 01:32) Past Medical History - General Information source: Patient - Social History Smoking Status: Current Every Day Smoker Cigarette use (# per day): Yes Family History: None, Reviewed & Not Pertinent Patient has suicidal ideation: No Patient has homicidal ideation: No - Past Medical History Cardiac Medical History: Reports: Hx Hypertension Psychiatric Medical History: Reports: Hx Anxiety, Hx Depression - and anxiety Past Surgical History: Reports: Hx Hysterectomy, Hx Tubal Ligation - Immunizations Immunizations up to date: Yes Hx Diphtheria, Pertussis, Tetanus Vaccination: Yes Review of Systems - Review of Systems Constitutional: No symptoms reported EENT: See HPI. denies: Nose discharge, Throat pain Cardiovascular: See HPI, Other - Vertigo Respiratory: No symptoms reported Gastrointestinal: No symptoms reported Genitourinary: No symptoms reported Female Genitourinary: No symptoms reported Musculoskeletal: No symptoms reported Skin: No symptoms reported Hematologic/Lymphatic: No symptoms reported Neurological/Psychological: No symptoms reported -: Yes All other systems reviewed and negative Physical Exam - Vital signs Vitals: Temp Pulse Resp BP Pulse Ox 97.5 F 73 20 183/113 H 100 01/27/20 04:37 01/27/20 04:37 01/27/20 04:37 01/27/20 04:37 01/27/20 04:37 - General General appearance: Appears well, Alert - HEENT Head: Normocephalic, Atraumatic Eyes: Normal Pupils: PERRL Ears: Normal External canal: Normal Tympanic membrane: Serous effusion - Bilatteraly Pharynx: Normal - Respiratory Respiratory status: No respiratory distress Chest status: Nontender Breath sounds: Normal Chest palpation: Normal - Cardiovascular Rhythm: Regular Heart sounds: Normal auscultation Murmur: No - Abdominal Inspection: Normal Distension: No distension Bowel sounds: Normal Tenderness: Nontender - Extremities General upper extremity: Normal inspection. No: Edema General lower extremity: Normal inspection. No: Edema - Neurological Neuro grossly intact: Yes Cognition: Normal Orientation: AAOx4 Lizeth Coma Scale Motor: Obeys Commands Speech: Normal Motor strength normal: LUE, RUE, LLE, RLE Sensory: Normal - Psychological Associated symptoms: Normal affect, Normal mood - Skin Skin Temperature: Warm Skin Moisture: Dry Skin Color: Normal Course - Re-evaluation Re-evalutation: 01/27/20 07:10 Patient resting comfortably sleeping easily aroused. Patient participated in physical exam answered questions. No signs of distress or any neurological finding abnormality noted On exam. - Vital Signs Vital signs: Temp Pulse Resp BP Pulse Ox 97.9 F 94 15 159/100 H 100 01/27/20 07:25 01/27/20 07:25 01/27/20 07:25 01/27/20 06:51 01/27/20 07:25 01/27/20 07:11 See vital sign chart patient was checked for orthostasis and was not found to be orthostatic. Patient ambulatory in the department without showing any ataxia or vertigo. Discharge - Discharge Clinical Impression: Labyrinthitis of both ears, Hypertension Condition: Stable Disposition: HOME, SELF-CARE Instructions: Labyrinthitis ([facility]), Meclizine ([facility]) Additional Instructions: Labyrinthitis Labyrinthitis is a temporary disease of the inner ear. It's sometimes called vestibulitis. It often starts a few days after a cold or virus infection. Symptoms include vertigo (the spinning type of dizziness) or a sense of unsteadiness and nausea. The symptoms usually go away in a couple of days without any treatment. You should rest and keep your head still. The dizziness is worse if you move your head. Closing the eyes usually helps. Don't drive, work with dangerous machinery, or get up on ladders or scaffolds until a few days after the dizziness resolves. Medicine such as meclizine (Antivert, Bonine) can reduce the dizziness and nausea. Tranquilizers (such as diazepam) can suppress your sense of balance, reducing the unpleasantness of the vertigo. Call or return if you develop ear pain, loss of hearing, fever, severe vomiting, or any other new symptom. Prescriptions: Meclizine HCl [Antivert 25 mg Tablet] 25 mg PO TID PRN #21 tablet PRN Reason: Forms: Elevated Blood Pressure Referrals: NITHYA BOSCH MD [Primary Care Provider] - Follow up as needed I personally performed the services described in the documentation, reviewed and edited the documentation which was dictated to the scribe in my presence, and it accurately records my words and actions.
== END 2020-01-27 07:25 | disposition home or self-care (01) ==
LOC: ER 04:31
DX: H83.03 Labyrinthitis, bilateral (principal); R42 Dizziness and giddiness; H93.13 Tinnitus, bilateral; I10 Essential (primary) hypertension; Z79.899 Other long term (current) drug therapy; F17.210 Nicotine dependence, cigarettes, uncomplicated
CPT/HCPCS: 99283

== ENCOUNTER 2020-01-28 07:58 | Emergency (ER) | payer OTHER ==
[2020-01-28 08:03] VITALS: BP 169/108
--- NOTE | 2020-01-28 16:38 | ER Document Report ---
Entered by SHAINA MIR SCRIBE 01/28/20 0910 Acting as scribe for:DANTE SANCHEZ MD ED General - General Chief Complaint: Foot Pain Stated Complaint: FOOT PAIN/HEADACHE Time Seen by Provider: 01/28/20 08:52 Primary Care Provider: NITHYA BOSCH MD [Primary Care Provider] - Follow up as needed Information source: Patient Notes: This 44 year old female patient presents to the emergency department today with complaints of "her toes sticking together" on her right foot. Patient states she was walking to [place] and felt that her toes were sticking together. Patient states she did not injure her toes. TRAVEL OUTSIDE OF THE [place] IN LAST 30 DAYS: No - Related Data Allergies/Adverse Reactions: No Known Allergies Allergy (Verified 01/28/20 08:05) Past Medical History - General Information source: Patient - Social History Smoking Status: Current Every Day Smoker Cigarette use (# per day): Yes Chew tobacco use (# tins/day): No Frequency of alcohol use: None Drug Abuse: None Family History: None, Reviewed & Not Pertinent Patient has suicidal ideation: No Patient has homicidal ideation: No - Past Medical History Cardiac Medical History: Reports: Hx Hypertension Psychiatric Medical History: Reports: Hx Anxiety, Hx Depression - and anxiety Past Surgical History: Reports: Hx Hysterectomy, Hx Tubal Ligation - Immunizations Immunizations up to date: Yes Hx Diphtheria, Pertussis, Tetanus Vaccination: Yes Review of Systems - Review of Systems Constitutional: No symptoms reported EENT: No symptoms reported Cardiovascular: No symptoms reported Respiratory: No symptoms reported Gastrointestinal: No symptoms reported Genitourinary: No symptoms reported Female Genitourinary: No symptoms reported Musculoskeletal: See HPI, Other - Toes sticking together. Skin: No symptoms reported Hematologic/Lymphatic: No symptoms reported Neurological/Psychological: No symptoms reported -: Yes All other systems reviewed and negative Physical Exam - Vital signs Vitals: Temp Pulse Resp BP Pulse Ox 98.4 F 89 16 169/108 H 100 01/28/20 08:01 01/28/20 08:01 01/28/20 08:01 01/28/20 08:01 01/28/20 08:01 - General General appearance: Appears well, Alert - HEENT Head: Normocephalic, Atraumatic Eyes: Normal Pupils: PERRL - Respiratory Respiratory status: No respiratory distress Chest status: Nontender Breath sounds: Normal - Cardiovascular Rhythm: Regular Heart sounds: Normal auscultation Murmur: No - Abdominal Inspection: Normal Distension: No distension Bowel sounds: Normal Tenderness: Nontender - Extremities General upper extremity: Normal inspection. No: Edema General lower extremity: Normal inspection. No: Edema Foot: Normal - Toes on right foot. Full range of motion. Able to flex and extend toes without difficulty., Nontender - Neurological Neuro grossly intact: Yes Cognition: Normal Orientation: AAOx4 - Psychological Associated symptoms: Normal affect, Normal mood - Skin Skin Temperature: Warm Skin Moisture: Dry Skin Color: Normal Course - Vital Signs Vital signs: Temp Pulse Resp BP Pulse Ox 97.8 F 89 16 169/108 H 100 01/28/20 09:52 01/28/20 08:01 01/28/20 08:01 01/28/20 08:01 01/28/20 08:01 Discharge - Discharge Clinical Impression: Foot pain, right Condition: Stable Disposition: HOME, SELF-CARE Additional Instructions: You need to dress warm for cold inclement weather and perhaps consider putting 2 pairs of socks on if need be to avoid toes from getting cold. Referrals: NITHYA BOSCH MD [Primary Care Provider] - Follow up as needed I personally performed the services described in the documentation, reviewed and edited the documentation which was dictated to the scribe in my presence, and it accurately records my words and actions.
== END 2020-01-28 09:52 | disposition home or self-care (01) ==
LOC: ER 07:58
DX: M79.671 Pain in right foot (principal); R51 Headache; F17.210 Nicotine dependence, cigarettes, uncomplicated; I10 Essential (primary) hypertension; Z90.710 Acquired absence of both cervix and uterus
CPT/HCPCS: 99283

== ENCOUNTER 2020-03-02 22:12 | Emergency (ER) | payer OTHER ==
--- NOTE | 2020-03-02 22:38 | ER Document Report ---
ED Medical Screen (RME) - General Chief Complaint: Chest Pain Stated Complaint: CHEST PAINS, UPPER BACK PAIN Primary Care Provider: NITHYA BOSCH MD [Primary Care Provider] - Follow up as needed Notes: Patient is a 45-year-old -[place] female with a history of patient is a 45-year-old -[place] he female with a history of hypertension that she reports is typically well controlled and anxiety who presents to the emergency department with a chief complaint of chest pain that began about 2 months ago. She states she is been seen in the past here for this and was told it was muscles in her chest, states she was prescribed some sort of numbing cream. She states she is not followed up outpatient for this, not seen a shirt ironer nor ever had a stress test. She denies any known family history of heart disease. She is a current everyday smoker. Reports the pain is located primarily in the left anterior chest and does not radiate. Reports it is feeling like bubbles. Denies any associated shortness of breath. No cough or hemoptysis. No history of DVT or PE. No hormone replacement therapy medicines or histories of cancer. No reported past medical surgeries within the past 2 weeks, recent travels or recent periods of immobilization. I have treated and performed a rapid initial assessment of this patient. A comprehensive ED assessment and evaluation of the patient, analysis of test results and completion of medical decision making process will be conducted by additional ED providers. PHYSICAL EXAMINATION: GENERAL: Well-appearing, well-nourished and in no acute distress. A&Ox4. Answers questions appropriately. TRAVEL OUTSIDE OF THE [place] IN LAST 30 DAYS: No - Related Data Allergies/Adverse Reactions: No Known Allergies Allergy (Verified 01/28/20 08:05) Past Medical History - Past Medical History Cardiac Medical History: Reports: Hx Hypertension Renal/ Medical History: Denies: Hx Peritoneal Dialysis Psychiatric Medical History: Reports: Hx Anxiety, Hx Depression - and anxiety Past Surgical History: Reports: Hx Hysterectomy, Hx Tubal Ligation - Immunizations Immunizations up to date: Yes Hx Diphtheria, Pertussis, Tetanus Vaccination: Yes Physical Exam - Vital signs Vitals: Temp Pulse Resp BP Pulse Ox 98.8 F 91 14 199/128 H 100 03/02/20 22:25 03/02/20 22:25 03/02/20 22:25 03/02/20 22:25 03/02/20 22:25 Course - Vital Signs Vital signs: Temp Pulse Resp BP Pulse Ox 98.8 F 91 14 199/128 H 100 03/02/20 22:25 03/02/20 22:25 03/02/20 22:25 03/02/20 22:25 03/02/20 22:25 Doctor's Discharge - Discharge Referrals: NITHYA BOSCH MD [Primary Care Provider] - Follow up as needed
--- NOTE | 2020-03-02 23:35 | RADIOLOGY REPORT (SQ) ---
EXAM DESCRIPTION: X-RAY CHEST- One View CLINICAL HISTORY: Chest pain COMPARISON: January 25, 2020 TECHNIQUE: Single view of the chest. FINDINGS: There are no discrete air space infiltrates, pneumothoraces or pleural effusions. The pulmonary vascularity is normal. The cardiomediastinal silhouette is normal in size. Osseous structures are stable in appearance. IMPRESSION: There are no acute lung parenchymal findings.
[2020-03-02 23:38] LABS: ABSOLUTE BASOPHILS # (AUTO) 0.1 10^3/uL (0.0-0.2); ABSOLUTE EOSINOPHILS # (AUTO) 0.1 10^3/uL (0.0-0.6); ABSOLUTE LYMPHOCYTES (AUTO) 3.2 10^3/uL (0.5-4.7); ABSOLUTE MONOCYTES (AUTO) 0.4 10^3/uL (0.1-1.4); ABSOLUTE NEUT (AUTO) 5.3 10^3/uL (1.7-8.2); BASOPHILS % (AUTO) 1.4 % (0-2); EOSINOPHILS % (AUTO) 1.3 % (0-6); HEMATOCRIT 42.3 % (36.0-47.0); HEMOGLOBIN 14.8 g/dL (12.0-15.5); LYMPHOCYTES % (AUTO) 34.5 % (13-45); MEAN CORPUSCULAR HEMOGLOBIN 29.5 pg (27.0-33.4); MEAN CORPUSCULAR HGB CONC 34.9 g/dL (32.0-36.0); MEAN CORPUSCULAR VOLUME 85 fl (80-97); MONOCYTES % (AUTO) 4.5 % (3-13); PLATELET COUNT 266 10^3/uL (150-450); RED BLOOD COUNT 5.01 10^6/uL (3.72-5.28); RED CELL DISTRIBUTION WIDTH 14.8 % (11.5-14.0); SEGMENTED NEUTROPHILS % (AUTO) 58.3 % (42-78); TOTAL CELLS COUNTED % (AUTO) 100 %; WHITE BLOOD COUNT 9.1 10^3/uL (4.0-10.5)
[2020-03-02 23:44] LABS: INTERNATIONAL RATION (INR) 1.08; PARTIAL THROMBOPLASTIN TIME 31.8 SEC (23.5-35.8); PROTHROMBIN TIME 14.1 SEC (11.4-15.4)
--- NOTE | 2020-03-02 23:46 | ER Document Report ---
ED General - General Chief Complaint: Chest Pain Stated Complaint: CHEST PAINS, UPPER BACK PAIN Time Seen by Provider: 03/02/20 23:31 Primary Care Provider: NITHYA BOSCH MD [NO LOCAL MD] - Follow up as needed Notes: yecenia notes Patient is a 45-year-old -Liber[place] female with a history of patient is a 45-year-old -Liberian he female with a history of hypertension that she reports is typically well controlled and anxiety who presents to the emergency department with a chief complaint of chest pain that began about 2 months ago. She states she is been seen in the past here for this and was told it was muscles in her chest, states she was prescribed some sort of numbing cream. She states she is not followed up outpatient for this, not seen a hose wrapper nor ever had a stress test. She denies any known family history of heart disease. She is a current everyday smoker. Reports the pain is located primarily in the left anterior chest and does not radiate. Reports it is feeling like bubbles. Denies any associated shortness of breath. No cough or hemoptysis. No history of DVT or PE. No hormone replacement therapy medicines or histories of cancer. No reported past medical surgeries within the past 2 weeks, recent travels or recent periods of immobilization. my notes 45-year-old black female arrives with chief complaint of 6-month history of left chest pain which radiates to her back directly and improves upon smoking and drinking sodas. Patient runs a low blood sugar usually and smokes half a pack of cigarettes daily since she was 19 years old. Her mother who is 69 has high blood pressure and takes medicine for this but otherwise no other medical problems in the family. Patient had her breast reduced in 2001 but denies any history of infections or otherwise any poor outcomes from her surgeries. Chest x-ray on my evaluation revealed an interstitial type pattern but patient reports in the past she has had negative chest x-ray readings. Patient denies any depression assaults abuse or diagnosis of angina pulmonary embolisms DVTs breast lumps or adenopathy of her axillary area. Movement of her left upper extremity does not induced pain. Patient reports her symptoms improve upon walking. Patient reports she has not taken any Hyzaar for her blood pressure in several months but instead takes clonidine twice a day. She last took this 3 days ago. Her blood pressure today is 200/128 TRAVEL OUTSIDE OF THE [place] IN LAST 30 DAYS: No - Related Data Allergies/Adverse Reactions: No Known Allergies Allergy (Verified 01/28/20 08:05) Past Medical History - General Information source: Patient - Social History Smoking Status: Current Every Day Smoker Cigarette use (# per day): Yes Chew tobacco use (# tins/day): No Smoking Education Provided: Yes Frequency of alcohol use: None Drug Abuse: None Family History: None, Reviewed & Not Pertinent Patient has suicidal ideation: No Patient has homicidal ideation: No - Past Medical History Cardiac Medical History: Reports: Hx Hypertension Renal/ Medical History: Denies: Hx Peritoneal Dialysis Psychiatric Medical History: Reports: Hx Anxiety, Hx Depression - and anxiety Past Surgical History: Reports: Hx Hysterectomy, Hx Tubal Ligation - Immunizations Immunizations up to date: Yes Hx Diphtheria, Pertussis, Tetanus Vaccination: Yes Review of Systems - Review of Systems Constitutional: No symptoms reported EENT: No symptoms reported Cardiovascular: See HPI, Chest pain Respiratory: No symptoms reported Gastrointestinal: No symptoms reported Genitourinary: No symptoms reported Female Genitourinary: No symptoms reported Musculoskeletal: See HPI, Back pain Skin: No symptoms reported Hematologic/Lymphatic: No symptoms reported Neurological/Psychological: No symptoms reported Physical Exam - Vital signs Vitals: Temp Pulse Resp BP Pulse Ox 98.8 F 91 14 199/128 H 100 03/02/20 22:25 03/02/20 22:25 03/02/20 22:25 03/02/20 22:25 03/02/20 22:25 Interpretation: Hypertensive - General General appearance: Alert In distress: Mild - HEENT Head: Normocephalic, Atraumatic Eyes: Normal Pupils: PERRL Sinus: Normal Nasal: Normal Mouth/Lips: Normal Pharynx: Normal Neck: Normal - Respiratory Respiratory status: No respiratory distress Chest status: Nontender Breath sounds: Normal Chest palpation: Normal - Cardiovascular Rhythm: Regular Heart sounds: Normal auscultation Murmur: No - Abdominal Inspection: Normal Distension: No distension Bowel sounds: Normal Tenderness: Nontender Organomegaly: No organomegaly - Genitourinary Bimanuel exam: Other - deferred - Back Back: Normal - Extremities General upper extremity: Normal inspection General lower extremity: Normal inspection - Neurological Neuro grossly intact: Yes Cognition: Normal Orientation: AAOx4 Lzieth Coma Scale Eye Opening: Spontaneous [place] Coma Scale Verbal: Oriented Lizeth Coma Scale Motor: Obeys Commands Lizeth Coma Scale Total: 15 Speech: Normal Motor strength normal: LUE, RUE, LLE, RLE Sensory: Normal - Psychological Associated symptoms: Normal affect - Skin Skin Temperature: Warm Skin Moisture: Dry Course - Vital Signs Vital signs: Temp Pulse Resp BP Pulse Ox 98.8 F 91 18 189/115 H 100 03/02/20 22:25 03/02/20 22:25 03/03/20 00:18 03/03/20 00:18 03/03/20 00:18 - Laboratory Result Diagrams: 03/02/20 23:28 03/02/20 23:28 Laboratory results interpreted by me: 03/02/20 03/02/20 23:28 23:28 RDW 14.8 H Sodium 135.6 L - Diagnostic Test Radiology reviewed: Reports reviewed Radiology results interpreted by me: 03/03/20 01:51 CTA chest wnl - EKG Interpretation by Me EKG shows normal: Sinus rhythm Critical Care Note - Critical Care Note Total time excluding time spent on procedures (mins): 90 Discharge - Discharge Clinical Impression: Chest pain at rest, Non compliance w medication regimen, Smoker unmotivated to quit Hypertension Qualifiers: Hypertension type: unspecified Qualified Code(s): I10 - Essential (primary) h ypertension Condition: Good Disposition: HOME, SELF-CARE Additional Instructions: Follow-up with Dr. Jordan hose wrapper on Wednesday or Wednesday call his office for appointment return to ER if symptoms persist or worsen and take medicines as directed encourage fluids and try to stick to a medicine regime for your high blood pressure to avoid strokes or heart attacks. Prescriptions: Lisinopril/Hydrochlorothiazide [Lisinopril-Hctz 20-25 mg Tab] 1 each PO DAILY #30 tablet Referrals: NITHYA BOSCH MD [NO LOCAL MD] - Follow up as needed
[2020-03-02 23:57] LABS: ALBUMIN 4.7 g/dL (3.5-5.0); ALKALINE PHOSPHATASE 64 U/L (38-126); ANION GAP 8 (5-19); ASPARTATE AMINO TRANSFERASE 27 U/L (14-36); BILIRUBIN,TOTAL 0.4 mg/dL (0.2-1.3); BLOOD UREA NITROGEN 13 mg/dL (7-20); CALCIUM 9.6 mg/dL (8.4-10.2); CARBON DIOXIDE 23 mmol/L (22-30); CHLORIDE 105 mmol/L (98-107); GLUCOSE 104 mg/dL (75-110); POTASSIUM 3.7 mmol/L (3.6-5.0); TOTAL PROTEIN 8.1 g/dL (6.3-8.2)
[2020-03-03] MEDS ORDERED: CLONIDINE HCL 0.2 MG TABLET PO ONE (00:20)
--- NOTE | 2020-03-03 01:44 | RADIOLOGY REPORT (SQ) ---
EXAM DESCRIPTION: CT CHEST ANGIOGRAPHY WITHOUT THEN WITH IV CONTRAST COMPLETED DATE/TME: 03/02/2020 23:46 CLINICAL HISTORY: 45 years, Female, cp COMPARISON: None. TECHNIQUE: 553 Images stored on PACS. All CT scanners at this facility use dose modulation, iterative reconstruction, and/or weight based dosing when appropriate to reduce radiation dose to as low as reasonably achievable (ALARA). Axial CTA images with coronal and sagittal MIPS [facility]: Dose Right [facility]: CareDose [facility]: Dose Right [facility]: Teradose 4D [facility]: [employer] LIMITATIONS: None. FINDINGS: The mediastinal vasculature enhances normally. No filling defect to suggest pulmonary embolus. Negative for thoracic aortic aneurysm or dissection. Limited evaluation of the upper abdomen is unremarkable. Osseous structures are grossly intact. No pneumothorax. Airways are patent. Lungs are clear IMPRESSION: Unremarkable CTA chest TECHNICAL DOCUMENTATION: Quality ID # [id number]: Final reports with documentation of one or more dose reduction techniques (e.g., Automated exposure control, adjustment of the mA and/or kV according to patient size, use of iterative reconstruction technique) copyright 2011 [employer]- All Rights Reserved
[2020-03-03 02:20] VITALS: BP 148/80
--- NOTE | 2020-03-04 22:49 | EKG REPORT ---
SEVERITY:- OTHERWISE NORMAL ECG - SINUS RHYTHM BORDERLINE LEFT AXIS DEVIATION : Confirmed by: Jose Juan Crouch 04-Mar-2020 22:48:28
== END 2020-03-03 02:21 | disposition home or self-care (01) ==
LOC: ER 22:12
DX: R07.9 Chest pain, unspecified (principal); M54.6 Pain in thoracic spine; F17.200 Nicotine dependence, unspecified, uncomplicated; I10 Essential (primary) hypertension; Z90.710 Acquired absence of both cervix and uterus; Z98.51 Tubal ligation status; Z91.14 Patient's other noncompliance with medication regimen
CPT/HCPCS: 36415; 71045; 71275; 80053; 84484; 85025; 85610; 85730; 93005; 93010; 99291; 99292

== ENCOUNTER 2020-03-05 22:20 | Emergency (ER) | payer OTHER ==
[2020-03-05 22:41] VITALS: BP 173/105
--- NOTE | 2020-03-05 23:11 | ER Document Report ---
ED General - General Chief Complaint: Other Stated Complaint: GENERAL DISCOMFORT Primary Care Provider: [facility] [Primary Care Provider] - Follow up as needed Cannot obtain history due to: Unstable vital signs Notes: Patient presents with generalized discomfort "I feel like my whole body is folding in on itself. When pressed she actually cannot give any real specific symptoms other than chronic depression. She denies suicidal or homicidal ideation. She cannot give any history in terms of focal symptoms but denies a fever. Looking at her chart she has several chronic mental health issues and is seen quite frequently in the emergency department generally not revealing a consistent or threatening diagnosis. TRAVEL OUTSIDE OF THE [place] IN LAST 30 DAYS: No - Related Data Allergies/Adverse Reactions: No Known Allergies Allergy (Verified 03/05/20 22:46) Past Medical History - Social History Smoking Status: Current Every Day Smoker Family History: None, Reviewed & Not Pertinent Patient has suicidal ideation: No Patient has homicidal ideation: No - Past Medical History Cardiac Medical History: Reports: Hx Hypertension Renal/ Medical History: Denies: Hx Peritoneal Dialysis Psychiatric Medical History: Reports: Hx Anxiety, Hx Depression - and anxiety Past Surgical History: Reports: Hx Hysterectomy, Hx Tubal Ligation - Immunizations Immunizations up to date: Yes Hx Diphtheria, Pertussis, Tetanus Vaccination: Yes Review of Systems - Review of Systems Notes: REVIEW OF SYSTEMS GEN: Malaise ENT: Denies sore throat, nasal discharge, ear pain EYES: Denies blurry vision, eye pain, discharge CV: Denies chest pain, palpitations, edema RESP: Denies cough, shortness of breath, wheezing GI: Denies abdominal pain, nausea, vomiting, diarrhea MSK: Denies joint pain/swelling, edema, SKIN: "I feel like my tattoo is rising up." LYMPH: Denies swollen glands/lymph nodes NEURO: Denies headache, focal weakness or numbness, dizziness PSYCH: Depression PHYSICAL EXAMINATION General: No acute distress, well-nourished Head: Atraumatic, normocephalic ENT: Mouth normal, oropharynx moist, no exudates or tonsillar enlargement Eyes: Conjunctiva normal, pupils equal, lids normal Neck: No JVD, supple, no guarding CVS: Normal rate, regular rhythm, no murmurs Resp: No resp distress, equal and normal breath sounds bilaterally GI: Nondistended, soft, no tenderness to palpation, no rebound or guarding Ext: No deformities, no edema, normal range of motion in upper and lower ext Back: No CVA or midline TTP Skin: No rash, warm Lymphatic: No lymphadeopathy noted Neuro: Awake, alert. Face symmetric. GCS 15. Physical Exam - Vital signs Vitals: Temp Pulse Resp BP Pulse Ox 98.8 F 85 16 173/105 H 97 03/05/20 22:35 03/05/20 22:35 03/05/20 22:35 03/05/20 22:35 03/05/20 22:35 Course - Re-evaluation Re-evalutation: 03/05/20 23:10 Chronic mental health symptoms with generalized malaise normal vital signs no signs of emergent or other severe condition on exam. The patient initially denied suicidality but when discharged became threatening and agitated. I do not think she has any psychiatric emergency although she certainly needs mental health follow-up. She is stable for discharge. I have discussed with the patient there likely diagnosis, aftercare plan, follow-up plans and my usual and customary return precautions. They verbalized understanding of this. - Vital Signs Vital signs: Temp Pulse Resp BP Pulse Ox 98.8 F 85 16 173/105 H 97 03/05/20 22:35 03/05/20 22:35 03/05/20 22:35 03/05/20 22:35 03/05/20 22:35 Discharge - Discharge Clinical Impression: Malaise Condition: Good Disposition: HOME, SELF-CARE Instructions: Depression ([facility]) Additional Instructions: Please follow-up with your mental health team and primary care regarding her psychiatric symptoms and generalized discomfort. [facility] [[facility] - Follow up as needed
== END 2020-03-05 23:23 | disposition home or self-care (01) ==
LOC: ER 22:20
DX: R53.81 Other malaise (principal); R10.9 Unspecified abdominal pain; F17.200 Nicotine dependence, unspecified, uncomplicated; I10 Essential (primary) hypertension
CPT/HCPCS: 99283

== ENCOUNTER 2020-03-30 10:21 | Emergency (ER) | payer OTHER ==
[2020-03-30] MEDS ORDERED: FAMOTIDINE 20 MG TABLET PO ONE (11:32)
[2020-03-30] MEDS ORDERED: ONDANSETRON 4 MG TAB.RAPDIS PO ONE (11:32)
--- NOTE | 2020-03-30 11:37 | ER Document Report ---
ED General - General Stated Complaint: NAUSEA/VOMITING Time Seen by Provider: 03/30/20 10:32 Primary Care Provider: MIHAELA CARROLL [Primary Care Provider] - Follow up in 1 week Notes: Patient is a 45-year-old female with a history of hypertension, anxiety, depression, and homelessness who presents the emergency department with multiple complaints. 1 of her complaints is that she feels like her tongue was swelling. It has been going on for the past month, but she states that she feels like it has been progressively worse the past couple of days. Patient did have some nausea and vomiting, but states that she does not feel nauseous, nor has she vomited in the last 3 days. States that she has some chest pain and "bone popping." She states that happens when her anxiety is up and she admits to some anxiety. Denies any suicidal or homicidal ideation. TRAVEL OUTSIDE OF THE [place] IN LAST 30 DAYS: No - Related Data Allergies/Adverse Reactions: No Known Allergies Allergy (Verified 03/30/20 11:21) Past Medical History - General Information source: Patient - Social History Smoking Status: Current Every Day Smoker Family History: None, Reviewed & Not Pertinent - Past Medical History Cardiac Medical History: Reports: Hx Hypertension Renal/ Medical History: Denies: Hx Peritoneal Dialysis Psychiatric Medical History: Reports: Hx Anxiety, Hx Depression - and anxiety Past Surgical History: Reports: Hx Hysterectomy, Hx Tubal Ligation - Immunizations Immunizations up to date: Yes Hx Diphtheria, Pertussis, Tetanus Vaccination: Yes Review of Systems - Review of Systems Notes: REVIEW OF SYSTEMS: CONSTITUTIONAL : Denies recent illness. Denies recent unintentional weight loss. Denies fever, chills, or sweats. EENT: Denies eye, ear, or throat, discharge, or symptoms. Denies nasal or sinus congestion. See HPI. CARDIOVASCULAR: See HPI. RESPIRATORY: Denies shortness of breath, cough, congestion, difficulty breathing, or wheezing. GASTROINTESTINAL: See HPI. GENITOURINARY: Denies difficulty urinating, burning, blood in urine, urgency or frequency. MUSCULOSKELETAL: Denies neck and back pain. Denies joint pain or swelling. SKIN: Denies rash, itchiness, or lesions HEMATOLOGIC : Denies easy bruising or bleeding. LYMPHATIC: Denies swollen, painful, enlarged glands. NEUROLOGICAL: Denies no numbness or tingling denies weakness. Denies headache. Denies altered mental status. Denies alteration in speech. PSYCHIATRIC: Denies stress, anxiety, alteration in sleep patterns, or depression. All other systems reviewed and negative. Physical Exam - Vital signs Vitals: Temp Pulse Resp BP Pulse Ox 98.3 F 80 16 162/111 H 99 03/30/20 10:42 03/30/20 10:42 03/30/20 10:42 03/30/20 10:42 03/30/20 10:42 - Notes Notes: PHYSICAL EXAMINATION: GENERAL: Appears well, healthy, well-nourished, no acute distress. HEAD: Normocephalic, atraumatic. EYES: PERRL, conjunctiva normal, all extraocular movements intact, sclera nonicteric ENT: Moist mucous membranes. NECK: Supple, no noticeable swelling, redness, rash. Normal range of motion. LUNGS: Equal breath sounds bilaterally and clear to auscultation. No wheezes rales or rhonchi. CARDIOVASCULAR: S1-S2, regular rate, regular rhythm. Radial pulses 2+, normal. ABDOMEN: Normoactive bowel sounds. Soft, nontender, no guarding, no rebound tenderness, and no masses palpated. EXTREMITIES: Normal strength and range of motion, no pitting or edema. No cyanosis. NEUROLOGICAL: Moves all extremities upon command. Strength 5/5 in all extremities. PSYCH: Normal mood, normal affect. SKIN: Warm, dry. No rash, lesions, ulcerations noted. Normal skin turgor. Course - Re-evaluation Re-evalutation: 03/30/20 15:01 Hematology and chemistries are unremarkable. CK is normal. Chest x-ray is normal. I suspect her symptoms are due to her anxiety. She also admits that these symptoms happen sometimes with her anxiety. Patient reports that her tongue swelling feels better. Patient's airway was patent this whole time. I have low suspicion for angioedema, pennie's angina, or any life threatening etiology at this time. We will continue the patient on Pepcid. Patient will follow-up with her primary care provider. She is in agreement with this plan. Follow-up precautions were given. Verbal discharge instructions were given to the patient. They verbalized understanding. They are stable for discharge. - Vital Signs Vital signs: Temp Pulse Resp BP Pulse Ox 98.0 F 72 16 168/102 H 100 0516/20 15:03 03/30/20 15:03 03/30/20 15:03 03/30/20 15:03 03/30/20 15:03 - Laboratory Result Diagrams: 03/30/20 12:44 03/30/20 12:44 Laboratory results interpreted by me: 03/30/20 03/30/20 12:44 12:44 RDW 14.6 H Sodium 135.6 L Discharge - Discharge Clinical Impression: Chest pain at rest, Tongue swelling, Essential hypertension Condition: Stable Disposition: HOME, SELF-CARE Additional Instructions: You are seen today in the emergency department for tongue swelling, nausea, and chest pains. Your symptoms improved with Pepcid and Zofran. You are being sent home with a prescription for Pepcid. [facility] Your blood pressure was also elevated here in the emergency department. Make sure you are taking your medications as prescribed. Prescriptions: Famotidine [Pepcid 20 mg Tablet] 20 mg PO BID #12 tablet [facility]: [facility] [Primary [facility]] - Follow up in 1 week
--- NOTE | 2020-03-30 12:58 | RADIOLOGY REPORT (SQ) ---
EXAM DESCRIPTION: CHEST SINGLE VIEW IMAGES COMPLETED DATE/TIME: 03/30/2020 12:47 pm REASON FOR STUDY: chest pain COMPARISON: Chest films 03/02/2020, 01/25/2020 CT chest 03/03/2020 EXAM PARAMETERS: NUMBER OF VIEWS: One view. TECHNIQUE: Single frontal radiographic view of the chest acquired. RADIATION DOSE: NA LIMITATIONS: None. FINDINGS: LUNGS AND PLEURA: No opacities, masses or pneumothorax. No pleural effusion. MEDIASTINUM AND HILAR STRUCTURES: No masses. Contour normal. HEART AND VASCULAR STRUCTURES: Heart normal in size. Normal vasculature. BONES: No acute findings. HARDWARE: None in the chest. OTHER: No other significant finding. IMPRESSION: NO ACUTE RADIOGRAPHIC FINDING IN THE CHEST. TECHNICAL DOCUMENTATION: JOB ID: [id number] 2010 [employer]- All Rights Reserved Reading location - IP/workstation name: [id number]
[2020-03-30 12:59] LABS: ABSOLUTE EOSINOPHILS # (AUTO) 0.2 10^3/uL (0.0-0.6); ABSOLUTE LYMPHOCYTES (AUTO) 2.2 10^3/uL (0.5-4.7); ABSOLUTE MONOCYTES (AUTO) 0.4 10^3/uL (0.1-1.4); ABSOLUTE NEUT (AUTO) 4.2 10^3/uL (1.7-8.2); BASOPHILS % (AUTO) 0.6 % (0-2); EOSINOPHILS % (AUTO) 2.3 % (0-6); HEMATOCRIT 40.8 % (36.0-47.0); HEMOGLOBIN 14.1 g/dL (12.0-15.5); LYMPHOCYTES % (AUTO) 31.3 % (13-45); MEAN CORPUSCULAR HEMOGLOBIN 29.5 pg (27.0-33.4); MEAN CORPUSCULAR HGB CONC 34.7 g/dL (32.0-36.0); MEAN CORPUSCULAR VOLUME 85 fl (80-97); MONOCYTES % (AUTO) 5.5 % (3-13); PLATELET COUNT 283 10^3/uL (150-450); RED BLOOD COUNT 4.79 10^6/uL (3.72-5.28); RED CELL DISTRIBUTION WIDTH 14.6 % (11.5-14.0); SEGMENTED NEUTROPHILS % (AUTO) 60.3 % (42-78); TOTAL CELLS COUNTED % (AUTO) 100 %
[2020-03-30 13:14] LABS: ALKALINE PHOSPHATASE 60 U/L (38-126); ANION GAP 7 (5-19); ASPARTATE AMINO TRANSFERASE 18 U/L (14-36); BILIRUBIN,TOTAL 0.4 mg/dL (0.2-1.3); BLOOD UREA NITROGEN 8 mg/dL (7-20); CALCIUM 9.1 mg/dL (8.4-10.2); CARBON DIOXIDE 24 mmol/L (22-30); CHLORIDE 105 mmol/L (98-107); CREATINE KINASE 135 U/L (30-135); GLUCOSE 87 mg/dL (75-110)
[2020-03-30 15:07] VITALS: BP 168/102
--- NOTE | 2020-03-31 10:45 | EKG REPORT ---
SEVERITY:- BORDERLINE ECG - SINUS RHYTHM LVH BY VOLTAGE BORDERLINE T ABNORMALITIES, INFERIOR LEADS : Confirmed by: Jose Juan Crouch 31-Mar-2020 10:45:13
== END 2020-03-30 15:03 | disposition home or self-care (01) ==
LOC: ER 10:21
DX: R07.89 Other chest pain (principal); R22.0 Localized swelling, mass and lump, head; I10 Essential (primary) hypertension; R11.2 Nausea with vomiting, unspecified; F41.9 Anxiety disorder, unspecified; F32.9 Major depressive disorder, single episode, unspecified; Z59.0 Homelessness; F17.200 Nicotine dependence, unspecified, uncomplicated
CPT/HCPCS: 93005; 99284; 36415; 82550; 85025; 80053; 71045; 93010; S0119